=== PATIENT | female | born 1950 | race Caucasian/White ===

== ENCOUNTER 2023-03-19 09:35 | Outpatient (REF) | payer MEDICARE, SELFPAY ==
--- NOTE | ~2023-03-19 | XR_ITS ---
EXAMINATION: XR LUMBOSACRAL SPINE CLINICAL INFORMATION: Lower back pain. COMPARISON: None TECHNIQUE: AP and lateral views of the lumbar spine and lateral view of the lumbosacral junction. FINDINGS: There is bony demineralization. At L3-L4, there is a 3 mm retrolisthesis. At L4-L5, there is a 3 mm anterolisthesis. At L5-S1, there is mild to moderate disc space narrowing. The remaining disc spaces are relatively well-maintained. No acute fracture or spondylolisthesis is seen. There is multi-level lumbar spondylosis and facet arthropathy. The posterior elements are intact. There are aortoiliac atherosclerotic calcifications. XR/XR sacrum coccyx min 2V IMPRESSION: 1. There is mild degenerative disc disease at L3-L4 and L4-L5, and mild to moderate degenerative disc disease is seen at L5-S1. 2. There is multi-level lumbar spondylosis and facet arthropathy. EXAMINATION: XR SACRUM AND COCCYX CLINICAL INFORMATION: Lower back pain. COMPARISON: None available. TECHNIQUE: 3 frontal and lateral views of the sacrum and coccyx were obtained. FINDINGS: There is bony demineralization. No fracture or dislocation is seen. The bilateral sacroiliac joints are symmetric and well-maintained. The pubic symphysis is intact. There is moderately severe degenerative change of the right hip, and the left hip joint space is well-maintained. No sacrococcygeal fracture is seen. There are aortoiliac atherosclerotic calcifications. IMPRESSION: No acute fracture or dislocation is seen. EXAMINATION: XR HIP, RIGHT CLINICAL INFORMATION: Lower back pain. COMPARISON: None available. TECHNIQUE: AP and frog-leg lateral views of the right hip. FINDINGS: There is bony demineralization. There is moderately severe narrowing of the right acetabular joint space. There is peripheral osteophyte formation of the articular surfaces of the right hip. A compression screw and fixator screws are applied to the proximal right femur. No hardware failure or loosening is seen. There is no foreign body. IMPRESSION: There is moderately severe osteoarthritic change of the right hip. No acute fracture or dislocation is seen. No hardware failure or loosening is noted.
== END 2023-03-19 09:36 | disposition home or self-care (01) ==
LOC: HO.XRAY 09:35
PROVIDERS: PCP Internal Medicine; Visit Provider Internal Medicine
DX: M53.3 Sacrococcygeal disorders, not elsewhere classified (principal); M54.50 Low back pain, unspecified; M25.551 Pain in right hip
CPT/HCPCS: 72100; 72220; 73502

== ENCOUNTER 2023-07-22 16:35 | Outpatient (AMB) | payer MEDICARE, SELFPAY ==
[2023-07-22 16:56] VITALS: BP 112/58; PULSE 77; O2SAT 96; BMI 22.1
--- NOTE | 2023-07-22 16:56 | MHC.PC.OV ---
Vital Signs 07/22/23 16:56 Height 5 ft 4 in Weight 129 lb BMI 22.1 BP 112/58 L Blood Pressure Location Lt brachial Position Sitting Pulse 77 Pulse Source Pulse Oximeter Pulse Oximetry (%) 96 Oxygen Delivery Method Room Air Intake Visit Reasons: afib Office Secretary Required: No Accompanied by: Self / Same As Patient Allergies paroxetine [From PAXIL] Allergy (Mild, Verified 07/22/23 17:19) ALOPECIA Medication List - Last Reconciled 07/22/23 by Lizet Almaraz MD [adult diapers pull-ups As directed] cholecalciferol (vitamin D3) 50 mcg PO DAILY 90 days digoxin 125 mcg PO DAILY 90 days diltiazem HCl CD (Cardizem CD) 240 mg PO DAILY 90 days fluoxetine 60 mg (3 x 20 mg) PO DAILY 30 days metoprolol succinate ER 50 mg PO DAILY polyethylene glycol 3350 17 grams PO DAILY PRN 30 days potassium chloride ER 10 mEq PO DAILY 90 days pravastatin 20 mg PO DAILY 90 days underpads (Maxicare Underpads) As directed warfarin 3 mg (3 x 1 mg) PO DAILY Tobacco use date assessed: 07/22/23 Fall risk assessment: No Falls in past year Last assessed Fall Risk: 07/22/23 Dental Screening Dental Screen Date: 03/19/23 HPI HPI Comments History of Present Illness Details This is a 73-year-old female with hypertension, pure hypercholesterolemia, atrial fibrillation, mild major depression and urge urinary incontinence that comes accompanied by friend for follow-up on her conditions. Blood pressure well controlled. Lipid panel will be order. On chronic anticoagulation for atrial fibrillation and she follows with Coumadin clinic. Depression stable with fluoxetine and is follow by Psychiatry. Has urge urinary incontinence and Myrbetriq works well but is too expensive. Walks with a walker for gait stability. Has skin lesions in her lower legs more prominent in the right that ooze most likely due to venous stasis dermatitis. Will prescribe a topical steroid cream. Has chronic idiopathic constipation that has been stable with MiraLax as needed. [facility] Medical History (Updated 07/22/23 @ 19:57 by Lizet Almaraz MD) Right shoulder pain Urge urinary incontinence Mild depression Dyslipidemia Hypovitaminosis D Current use of assisted anticoagulation Atrial fibrillation Depression with anxiety High cholesterol Hypertension Arthritis Surgical History Deficient knowledge of open reduction and internal (ORIF) fixation of hip History of cataract Family History Father Cancer Throat cancer Mother No problems noted. Sister No problems noted. Son No problems noted. Social History Housing: Apartment Alcohol intake: never Patient Tobacco Use Status: Former Tobacco user Tobacco use type: Cigarette e-Cigarette/Vaping Use: Never Used Second Hand Smoke Exposure: No service: No Current occupational status: retired Cognitive needs: Yes Hearing needs: No Vision needs: No Questionnaire PHQ-9 Over the last 2 weeks, how often have you been bothered by any of the following problems? 1. Little interest or pleasure in doing things: several days 2. Feeling down, depressed, or hopeless: several days 3. Trouble falling or staying asleep, or sleeping too much: not at all 4. Feeling tired or having little energy: several days 5. Poor appetite or overeating: not at all 6. Feeling bad about yourself - or that you are a failure or have let yourself or your family down: not at all 7. Trouble concentrating on things, such as reading the newspaper or watching television: not at all 8. Moving or speaking so slowly that other people could have noticed. Or the opposite - being so fidgety or restless that you have been moving around a lot more than usual: not at all 9. Thoughts that you would be better off or of hurting yourself in some way: not at all Total score: 3 Depression Screening Interpretation: Positive Depression Screening Follow-up: Existing condition, In treatment and Community Mental Health Worker F/U Depression Screening Done: Yes 82411 - PHQ-9 Billing: Yes Source: Developed by Drs. Rahat Barragan, Lisha Dominguez, Atilio Fong and colleagues, with an educational guerda from [employer]. Thrive Questionnaire Date Thrive assessed: 07/22/23 I am a: Patient What is your living situation today?: I have a steady place to live Within the past 12 months, did the food you bought not last and you didn't have the money to get more?: Never true Within the past 12 months, did you worry whether your food would run out before you got money to buy more?: Never true Do you have trouble paying for medicines?: No Do you have trouble getting transportation to medical appointments?: No Do you have trouble paying your heating and electricity bill?: No Do you have trouble taking care of your child, family member or friend?: No Do you have trouble with day-to-day activities such as bathing, preparing meals, shopping, managing finances, etc.?: No Are you currently unemployed and looking for a job?: No Are you interested in more education?: No Please select the resources that you would like help with: None Currently or been in a relationship where the following occur: no concerns reported THRIVE Score: 0 AUDIT C Alcohol Use Questionnaire (AUDIT-C) 1. How often do you have a drink containing alcohol?: Never Total Score: 0 YURY-7 AMB Questionnaire YURY-7 Date YURY - 7 assessed: 03/19/23 Source: Developed by Drs. Rahat Barragan, Lisha Dominguez, Atilio Fong and colleagues, with an educational guerda from [employer]. Review of Systems Const All systems reviewed & are unremarkable except as noted in HPI and below Eyes Reports no additional complaints, Denies change in vision and Denies other visual disturbances Card Denies chest pain at rest, Denies chest pain with activity, Denies edema, Denies irregular heart rhythm, Denies claudication, Denies dyspnea, Denies dyspnea on exertion, Denies orthopnea, Denies paroxysmal nocturnal dyspnea and Denies slow heart rate Resp Denies cough, Denies dyspnea and Denies dyspnea on exertion GI Denies abdominal pain, Denies change in bowel habits, Reports constipation, Denies excessive flatus, Denies nausea and Denies vomiting Reports urinary incontinence, Denies urinary hesitancy and Denies urinary urgency Skin/Breast Reports erythema Physical exam (Primary Care) Vital Signs: Last Vital Signs Pulse 77 07/22/23 16:56 BP 112/58 L 07/22/23 16:56 Pulse Ox 96 07/22/23 16:56 Oxygen Delivery Method Room Air 07/22/23 16:56 BMI result Body Mass Index 22.1 Tobacco/Smoking Status: Tobacco use Status Tobacco use date assessed 07/22/23 07/22/23 17:06 Patient Tobacco Use Status Former Tobacco user 07/22/23 17:06 Tobacco use type Cigarette 07/22/23 17:06 e-Cigarette/Vaping Use Never Used 07/22/23 17:06 PHQ-9: PHQ-9 Score PHQ-9: Total score 3 07/22/23 17:23 Depression Screening Interpretation: Positive Depression Screening Follow-up: Existing condition, In treatment and Community Mental Health Worker F/U Thrive Assessment: Date of Thrive Assessment Date Thrive assessed 07/22/23 07/22/23 17:06 Currently or been in a relationship where the following occur: no concerns reported Const Limitations: ambulation with walker Resp Effort & Inspection: normal respiratory effort Auscultation: clear to auscultation bilaterally Cardio Jugular venous distension: no JVD Rate: regular rate Rhythm: regular rhythm Heart sounds: S1 normal heart sound present and S2 normal heart sound present Extrem General: Yes full ROM Assessment and Plan Assessment & Plan (1) Atrial fibrillation: Code(s): I48.91 - Unspecified atrial fibrillation Qualifiers: Atrial fibrillation type: longstanding persistent Qualified Code(s): I48.11 - Longstanding persistent atrial fibrillation Plan: Continue metoprolol warfarin. INR goal is 2-3. (2) Mild depression: Code(s): F32.0 - Major depressive disorder, single episode, mild Plan: Continue fluoxetine. Follow-up with psychiatry. (3) Chronic idiopathic constipation: Code(s): K59.04 - Chronic idiopathic constipation Plan: Continue MiraLax as needed. (4) Pure hypercholesterolemia: Code(s): E78.00 - Pure hypercholesterolemia, unspecified Plan: Continue statins. (5) Urge urinary incontinence: Code(s): N39.41 - Urge incontinence Plan: Start doing time bathroom visits. (6) Venous stasis dermatitis: Code(s): I87.2 - Venous insufficiency (chronic) (peripheral) Orders: Orders Lipid Panel Today E78.5 - Hyperlipidemia, unspecified Vitamin D 25-OH Total Today E55.9 - Vitamin D deficiency, unspecified Complete Blood Count Auto Diff Today D64.9 - Anemia, unspecified IRON PROFILE Today D64.9 - Anemia, unspecified Digoxin Today I48.11 - Longstanding persistent atrial fibrillation Vitamin B12 and Folate Today E53.8 - Deficiency of other specified B group vitamins Comprehensive [place]. Panel Fast Today M54.50 - Low back pain, unspecified Referrals Cardiology Referral I48.11 - Longstanding persistent atrial fibrillation, Z01.818 - Encounter for other preprocedural examination Medications: New metoprolol succinate ER 50 mg PO DAILY 90 tabs 1RF 90 days hydrocortisone 1% (Anti-Itch (hydrocortisone)) 1 appl topical BID PRN 28.4 grams 1RF skin irritation 30 days Coding Level of Care Code Est Pt Level 4 (97976) Diagnoses Longstanding persistent atrial fibrillation I48.11 Atrial fibrillation type: longstanding persistent Mild depression F32.0 Chronic idiopathic constipation K59.04 Pure hypercholesterolemia E78.00 Urge urinary incontinence N39.41 Venous stasis dermatitis I87.2 Time Spent (min) 25
== END 2023-07-22 17:41 | disposition home or self-care (01) ==
PROVIDERS: PCP Internal Medicine; Visit Provider Internal Medicine
DX: I48.11 Longstanding persistent atrial fibrillation (principal); F32.0 Major depressive disorder, single episode, mild; K59.04 Chronic idiopathic constipation; E78.00 Pure hypercholesterolemia, unspecified; N39.41 Urge incontinence; I87.2 Venous insufficiency (chronic) (peripheral)
CPT/HCPCS: 99214

== ENCOUNTER 2023-09-04 14:15 | Outpatient (AMB) | payer MEDICARE, SELFPAY ==
[2023-09-04 14:33] VITALS: BP 114/60; PULSE 74; BMI 21.9
--- NOTE | 2023-09-04 14:33 | MHC.OFFVIS ---
Vital Signs 09/04/23 14:33 Height 5 ft 4 in Weight 127 lb 13.89 oz BMI 21.9 BP 114/60 Blood Pressure Location Lt brachial Position Sitting Pulse 74 Pulse Source Monitor Intake Visit Reasons: [employer]/ previous HS/ [place]/ Allergies paroxetine [From PAXIL] Allergy (Mild, Verified 07/22/23 17:19) ALOPECIA Medication List - Last Reconciled 09/04/23 by Justino Cunha MD [adult diapers pull-ups As directed] cholecalciferol (vitamin D3) 50 mcg PO DAILY 90 days digoxin 125 mcg PO DAILY 90 days diltiazem HCl CD (Cardizem CD) 240 mg PO DAILY 90 days fluoxetine 60 mg (3 x 20 mg) PO DAILY 30 days hydrocortisone 1% (Anti-Itch (hydrocortisone)) 1 appl topical BID PRN 30 days metoprolol succinate ER 50 mg PO DAILY 90 days polyethylene glycol 3350 17 grams PO DAILY PRN 30 days potassium chloride ER 10 mEq PO DAILY 90 days pravastatin 20 mg PO DAILY 90 days underpads (Maxicare Underpads) As directed warfarin 3 mg (3 x 1 mg) PO DAILY HPI Comments Details: Catie is here for evaluation regarding atrial fibrillation. She has been seen in our clinic many years ago-last around 2017, but nothing recently. It does not appear that she was actually seeing anybody from Cardiology. She states she is generally doing okay from cardiac and does not have any overt symptoms. Otherwise, it seems that she required some uterine surgery but was apparently canceled as she has not seen Cardiology in many years. [facility] Medical History Right shoulder pain Urge urinary incontinence Mild depression Dyslipidemia Hypovitaminosis D Current use of shelter anticoagulation Atrial fibrillation Depression with anxiety High cholesterol Hypertension Arthritis Surgical History Deficient knowledge of open reduction and internal (ORIF) fixation of hip History of cataract Family History Father Cancer Throat cancer Mother No problems noted. Sister No problems noted. Son No problems noted. Social History Housing: Apartment Alcohol intake: never Patient Tobacco Use Status: Former Tobacco user Tobacco use type: Cigarette e-Cigarette/Vaping Use: Never Used Second Hand Smoke Exposure: No service: No Current occupational status: retired Cognitive needs: Yes Hearing needs: No Vision needs: No Review of Systems Const Denies weakness ENT Denies dizziness Card Denies chest pain, Denies chest pain with activity, Denies syncope, Denies rapid heart rate, Denies pedal edema, Denies edema, Denies leg edema, Denies lightheadedness, Denies palpitations, Denies dyspnea, Denies dyspnea on exertion and Denies orthopnea Resp Denies cough, Denies dyspnea and Denies dyspnea on exertion GI Denies hematochezia and Denies change in stool character Musc Denies abnormal gait, Denies muscle cramps, Denies muscle weakness, Denies numbness, Denies radiating pain into limb and Denies tingling Neuro Denies abnormal gait, Denies dizziness, Denies syncope, Denies numbness, Denies tingling and Denies weakness Endo Denies palpitations Physical Exam Vital Signs: Last Vital Signs Pulse 74 09/04/23 14:33 BP 114/60 09/04/23 14:33 BMI result Body Mass Index 21.9 Const General: comfortable and no acute distress Orientation/consciousness: patient oriented x3 HEENT Other: Unremarkable Head: Yes normal to inspection Neck Neck: Yes normal visual inspection Chest Chest palpation & inspection: normal inspection of the chest Resp Auscultation: clear to auscultation bilaterally Cardio Palpation: normal PMI Heart sounds: S1 normal heart sound present, S2 normal heart sound present, no gallops, no murmurs and no rubs GI Palpation (GI): Soft to palpation Back/Spine/Pelvis Other: unremarkable Skin General skin exam: no rashes or lesions noted Neuro General: patient oriented x3 Extrem General: Yes normal to inspection Psych Mental Status: mental status grossly normal Assessment & Plan Assessment & Plan (1) Persistent atrial fibrillation: Code(s): I48.19 - Other persistent atrial fibrillation Category: Medical (2) Non-rheumatic aortic stenosis: Code(s): I35.0 - Nonrheumatic aortic (valve) stenosis Category: Medical (3) Preoperative cardiovascular examination: Code(s): Z01.810 - Encounter for preprocedural cardiovascular examination Category: Medical Plan [place] [facility] [place]LVEF 40-45%; severely dilated left atrium; [id number] aortic stenosis; mitral annular calcification. Per echocardiogram in 2017, LVEF is 55-60%. We will repeat echocardiogram to reassess LVEF. Could be related to atrial fibrillation. Not clear. Less likely ischemic as she does not have any anginal-type symptoms. We will also get a Holter to assess adequacy of rate control. It seems that she had some labs done at home through [facility]. Will need to get those results. Looking for digoxin levels. Follow-up after the above. Orders: Orders CA echo transthoracic complete Today I35.0 - Nonrheumatic aortic (valve) stenosis ECG 3 day holter monitor Today I48.19 - Other persistent atrial fibrillation Coding Level of Care Code New Pt Level 4 (86655) Diagnoses Persistent atrial fibrillation I48.19 Non-rheumatic aortic stenosis I35.0 Preoperative cardiovascular examination Z01.810
== END 2023-09-04 15:07 | disposition home or self-care (01) ==
PROVIDERS: PCP Internal Medicine; Visit Provider Internal Medicine
DX: I48.19 Other persistent atrial fibrillation (principal); I35.0 Nonrheumatic aortic (valve) stenosis; Z01.810 Encounter for preprocedural cardiovascular examination
CPT/HCPCS: 93010; 99204

== ENCOUNTER → 2023-09-04 14:15 | Outpatient (BNVA) | payer MEDICARE, SELFPAY | PROVIDERS: PCP Internal Medicine; Visit Provider Internal Medicine | DX: Z01.810 Encounter for preprocedural cardiovascular examination (principal); I48.19 Other persistent atrial fibrillation; I35.0 Nonrheumatic aortic (valve) stenosis | CPT/HCPCS: 93005; 99202 ==

== ENCOUNTER → 2023-09-30 13:56 | Outpatient (REF) | payer MEDICARE, SELFPAY ==
--- NOTE | 2023-09-30 14:01 | CA_ITS ---
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 The visually estimated ejection fraction is between 55-60%. - Severe biatrial enlargement. - Paradoxical, low-flow, low gradient severe aortic stenosis. - There is moderate mitral annular calcification. Findings Left Ventricle Normal left ventricular cavity size. There is mildly increased left ventricular wall thickness. The left ventricular systolic function is normal. The visually estimated ejection fraction is between 55-60%. There is no evidence of regional wall motion abnormalities. Diastolic function is indeterminate on the basis of available data. Right Ventricle Normal right ventricular cavity size and systolic function. Atria Severe biatrial enlargement. Aortic Valve There is moderate calcification of the aortic valve. The peak aortic velocity is 2.79 m/s with a calculated peak gradient of 31 mmHg. The mean gradient is 17 mmHg. The aortic valve area is 0.65 cm2. There is no aortic valve regurgitation. Dimensionless index 0.23. Stroke volume index 26ml/m2. Overall, suggestive of paradoxical, low-flow, low gradient severe aortic stenosis. Mitral Valve There is moderate mitral annular calcification. There is trace mitral valve regurgitation. There is no mitral valve stenosis. Pulmonic Valve The pulmonic valve is likely normal. Tricuspid Valve Normal tricuspid valve structure. There is mild tricuspid valve regurgitation. There is no evidence of pulmonary hypertension. Great Vessels The asc aorta is normal in size. Venous The inferior vena cava is normal in size and collapses less than 50% with inspiration. Pericardium/Pleural There is no evidence of pericardial effusion. Prior Study Comparison Changes noted compared to prior study dated: 05/02/2016. see comments on aortic valve. Measurements 2D Linear Measurements IVSd: 1.02 0.6-0.9/0.6-1.0 cm LVIDd: 3.99 3.9-5.3/4.2-5.9 cm LVIDd Index: 2.64 2.4-3.2/2.2-3.1 cm/m2 LVIDs: 2.83 2.0-3.6 cm LVPWd: 1.03 0.7-1.1 cm Ao Root: 3.00 2.1-3.5 cm LA Diam: 4.80 2.7-3.8/3.0-4.0 cm LAIDs Index: 3.18 1.5-2.3 cm/m2 LV Mass: 163.10 67-162/88-224 g LV Mass Index: 108.01 43-95/49-115 g/m2 LVOT Diam: 1.90 3.0+(-)1.3 cm 2D Systolic Function EF 4C: 51.70 >55% EF 2C: 48.80 >55% EF BiP: 50.50 >55% Mitral Valve MV Pk E: 0.93 MV Decel Time: 149.00 E'Lateral: 11.60 E'Medial: 6.96 E/E' Med: 13.40 E/E' Lat: 8.00 PHT: 44.00 MVA PHT: 5.00 Decel [place]: 6.23 Aortic Valve AoV Pk Fish: 2.79 AoV Mn Fish: 1.91 AoV VTI: 0.60 AoV Pk Grad: 31.00 Aov Mn Grad: 17.00 SHANIA Cont.VTI: 0.65 LVOT LVOT Pk Fish: 0.66 LVOT Mn Fish: 0.43 LVOT VTI: 0.14 LVOT Pk Grad: 2.00 LVOT Mn Grad: 1.00 LVOT Diam: 1.90 LVOT Area: 2.84 Diastolic Function MV Pk E: 0.93 E'Medial: 6.96 E/E' Med: 13.40 E' Laterial: 11.60 E/E' Lat: 8.00 Right Ventricle TAPSE (mm): 23.00 TVS' Fish: 17.00 Tricuspid Valve TR Pk Fish: 2.70 TR Pk Grad: 29.00 RA Press: 3.00 RVSP: 32.00 Great Vessels Aorta Ao Root-2D: 3.00 2.0-3.7 cm Ao Asc: 3.10 2.1-3.4 cm Pulmonary Valve PV Pk Fish: 1.08 Peak PV Grad: 5.00 Updated in Other Vendor System with Status of Final Justino Cunha MD electronically signed on 10/01/2023 12:27:13 PM with status of Final
--- NOTE | 2023-09-30 14:01 | HM_ITS ---
Conclusion: 1. Patient was monitored for total period of 2 days and 23 hours 2. Baseline rhythm is atrial fibrillation with average heart of 75 beats per minute with good rate control 3. No significant pauses noted 4. No patient reported events MTDD
== END ==
LOC: HO.CARD 13:56
PROVIDERS: PCP Internal Medicine; Visit Provider Internal Medicine
DX: I35.0 Nonrheumatic aortic (valve) stenosis (principal); I48.19 Other persistent atrial fibrillation
CPT/HCPCS: 93242; 93306

== ENCOUNTER → 2023-09-30 14:01 | Outpatient (BNV) | payer MEDICARE, SELFPAY | PROVIDERS: PCP Internal Medicine; Visit Provider Internal Medicine | DX: I35.0 Nonrheumatic aortic (valve) stenosis (principal); I35.8 Other nonrheumatic aortic valve disorders; I51.7 Cardiomegaly; I34.81 Nonrheumatic mitral (valve) annulus calcification | CPT/HCPCS: 93244; 93306 ==

== ENCOUNTER 2023-11-21 14:30 | Outpatient (AMB) | payer MEDICARE, SELFPAY ==
[2023-11-21 14:32] VITALS: BP 100/52; PULSE 73; BMI 22.7
--- NOTE | 2023-11-21 14:32 | A.OFFVIS_ITS ---
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 Engineer Present Allergies paroxetine [From PAXIL] Allergy (Mild, Verified 11/21/23 14:39) ALOPECIA Medication List - Last Reconciled 11/21/23 by Elsy Herrera, SUPERVISOR [employer]ING [employer]ING[employer] [adult diapers pull-ups As directed] cholecalciferol (vitamin D3) 50 mcg PO DAILY 90 days digoxin 125 mcg PO DAILY 90 days diltiazem HCl CD (Cardizem CD) 240 mg PO DAILY 90 days fluoxetine 60 mg (3 x 20 mg) PO DAILY 30 days hydrocortisone 1% (Anti-Itch (hydrocortisone)) 1 appl topical BID PRN 30 days metoprolol succinate ER 50 mg PO DAILY 90 days polyethylene glycol 3350 17 grams PO DAILY PRN 30 days potassium chloride ER 10 mEq PO DAILY 90 days pravastatin 20 mg PO DAILY 90 days underpads (Maxicare Underpads) As directed warfarin 3 mg (3 x 1 mg) PO DAILY HPI HPI 3 mth fu: Details: Catie is a 73-year-old female past medical history of hypertension, hyperlipidemia, aortic stenosis, persistent atrial fibrillation who is in need of surgery for vaginal prolapse. Following last visit an echocardiogram and Holter monitor were done and she now presents for follow-up. Today she reports that she does have some shortness of breath with walking. She ambulates slowly with a walker. Her breathing is comfortable at rest. No PND, orthopnea or edema. She denies any chest discomfort at rest or with activity. No palpitations, lightheadedness, presyncope, syncope. Taking meds as directed. Her friend is present. She does seem mildly forgetful. [facility] Medical History Right shoulder pain Urge urinary incontinence Mild depression Dyslipidemia Hypovitaminosis D Current use of assisted anticoagulation Atrial fibrillation Depression with anxiety High cholesterol Hypertension Arthritis Surgical History Deficient knowledge of open reduction and internal (ORIF) fixation of hip History of cataract Family History Father Cancer Throat cancer Mother No problems noted. Sister No problems noted. Son No problems noted. Social History Housing: Apartment Alcohol intake: never Patient Tobacco Use Status: Former Tobacco user Tobacco use type: Cigarette e-Cigarette/Vaping Use: Never Used Second Hand Smoke Exposure: No service: No Current occupational status: retired Cognitive needs: Yes Hearing needs: No Vision needs: No Review of Systems Const All systems reviewed & are unremarkable except as noted in HPI and below ENT Denies dizziness Card Denies chest pain, Denies chest pain at rest, Denies chest pain with activity, Denies rapid heart rate, Denies pedal edema, Denies edema, Denies leg edema, Denies lightheadedness, Denies palpitations, Denies dyspnea, Reports dyspnea on exertion and Denies orthopnea Resp Denies cough, Denies dyspnea and Reports dyspnea on exertion GI Denies hematochezia and Denies change in stool character Musc Reports abnormal gait (ambulates slowly with walker), Denies limited range of motion, Denies muscle cramps, Denies muscle weakness, Denies numbness, Denies radiating pain into limb, Denies stiffness and Denies tingling Neuro Reports abnormal gait (ambulates slowly with walker), Denies dizziness, Denies numbness and Denies tingling Endo Denies palpitations Physical Exam Vital Signs: Last Vital Signs Pulse 73 11/21/23 14:32 BP 100/52 L 11/21/23 14:32 BMI result Body Mass Index 22.7 Const General: cooperative, healthy appearing, comfortable and no acute distress Orientation/consciousness: patient oriented x3 Neck Neck: Yes normal visual inspection and Yes no JVD Resp Effort & Inspection: normal respiratory effort Auscultation: clear to auscultation bilaterally, no rales, no rhonchi and no wheezes Cardio Jugular venous distension: no JVD Rate: regular rate Rhythm: abnormal rhythm Heart sounds: S1 normal heart sound present, S2 normal heart sound present, Murmur heart sound present (3/6 systolic murmur) and no rubs Neuro General: patient oriented x3 Extrem Other: venous stasis changes to lower legs, bruising and scabbing of wounds on right lower leg Psych Appearance: grossly normal Mental Status: mental status grossly normal Speech and movement: Normal speech and movement present Office Procedures EKG Details: Today, read by me, atrial fibrillation, indeterminate axis due to artifact on tracing, septal infarct, ST abnormality far lateral leads rate 73, QTC 398 millisecond [id number], Complete Assessment & Plan Assessment & Plan (1) Non-rheumatic aortic stenosis: Code(s): I35.0 - Nonrheumatic aortic (valve) stenosis Category: Medical Plan: History of aortic stenosis. [place] [facility] [place] EF 40-45%, severely dilated left atrium, no definite regional wall motion abnormalities, [id number] aortic stenosis. In August she was seen in our office after a prolonged absence. Her last prior visit was 2016. She then had a repeat echocardiogram done 09/30/2023 which showed EF 55-60%, severe biatrial enlargement and low flow low gradient severe aortic stenosis. She does have some shortness of breath with walking. She denies chest discomfort or presyncope/syncope. She is mostly sedentary. She is in need histology specialist surgery for prolapsed uterus. Her surgery had been previously scheduled then canceled as she had not seen Cardiology in some time. For further cardiac evaluation she needs a diagnostic cardiac catheterization to evaluate coronaries and aortic valve gradient. Cardiac catheterization procedure, risks including bleeding, infection, DEBO, CA, stroke reviewed with her. She is agreeable to proceed. She has no contrast dye allergy. She is on Coumadin which will need to be held to 5 days prior to the procedure. Lovenox bridge not required. Preprocedure labs ordered. Cardiology follow-up 2 weeks post cath. (2) Persistent atrial fibrillation: Code(s): I48.19 - Other persistent atrial fibrillation Category: Medical Plan: History of persistent, chronic atrial fibrillation. She is on diltiazem, metoprolol and digoxin for heart rate control. She denies any heart palpitations. EKG done today is showing atrial fibrillation, rate 73. Holter monitor done on 09/30/2023 for 3 days shows atrial fibrillation with average heart rate 75. She is on Coumadin for anticoagulation. INR goal 2-3. She has labs done at home through [facility]. Will check an INR as part of pre cath testing. Will also check a digoxin level. Med changes made at this time. (3) Current use of joint terminal attack controller anticoagulation: Code(s): Z79.01 - FDC (current) use of anticoagulants Category: Medical Plan: As above (4) Hypertension: Code(s): I10 - Essential (primary) hypertension Category: Medical Qualifiers: Hypertension type: unspecified Qualified Code(s): I10 - Essential (primary) hypertension Plan: Blood pressure on the low side today, 100/52, asymptomatic. Her heart rate lowering meds, diltiazem and metoprolol will also lower her blood pressure. Instructed on maintaining good hydration. Use caution when going sitting to standing if she has lightheadedness. Can use some salt in her diet. (5) Preoperative cardiovascular examination: Code(s): Z01.810 - Encounter for preprocedural cardiovascular examination Category: Medical Plan: Preop for histology specialist surgery. No date yet. Cardiac catheterization planned as above. Note will be updated once test results are known. Plan Time spent on chart review, documentation, interview and assessment Orders: Orders Basic Metabolic Panel Today I35.0 - Nonrheumatic aortic (valve) stenosis Prothrombin Time INR Today I35.0 - Nonrheumatic aortic (valve) stenosis Cardiac Cath LT Diagnostic Today I35.0 - Nonrheumatic aortic (valve) stenosis, Z01.810 - Encounter for preprocedural cardiovascular examination Complete Blood Count Auto Diff Today I35.0 - Nonrheumatic aortic (valve) stenosis Digoxin Today I48.19 - Other persistent atrial fibrillation Coding Level of Care Code Est Pt Level 4 (98970) Diagnoses Non-rheumatic aortic stenosis I35.0 Persistent atrial fibrillation I48.19 Current use of joint terminal attack controller anticoagulation Z79.01 Hypertension, unspecified type I10 Hypertension type: unspecified Preoperative cardiovascular examination Z01.810 CPT Codes EKG - CPT: 43223-[id number], Complete ([id number]) Time Spent (min) 36
== END 2023-11-21 15:21 | disposition home or self-care (01) ==
PROVIDERS: PCP Internal Medicine; Visit Provider Nurse Practitioner Family
DX: I35.0 Nonrheumatic aortic (valve) stenosis (principal); I48.19 Other persistent atrial fibrillation; Z79.01 Long term (current) use of anticoagulants; I10 Essential (primary) hypertension; Z01.810 Encounter for preprocedural cardiovascular examination
CPT/HCPCS: 93010; 99214

== ENCOUNTER → 2023-11-21 14:30 | Outpatient (BNVA) | payer MEDICARE, SELFPAY | PROVIDERS: PCP Internal Medicine; Visit Provider Nurse Practitioner Family | DX: Z01.810 Encounter for preprocedural cardiovascular examination (principal); I10 Essential (primary) hypertension; I35.0 Nonrheumatic aortic (valve) stenosis; I48.19 Other persistent atrial fibrillation; E78.5 Hyperlipidemia, unspecified; Z79.01 Long term (current) use of anticoagulants | CPT/HCPCS: 93005; 99212 ==

== ENCOUNTER → 2023-12-17 23:59 | Outpatient (BNV) | payer MEDICARE, SELFPAY | PROVIDERS: PCP Internal Medicine; Visit Provider Internal Medicine Cardiovascular Disease | DX: I35.0 Nonrheumatic aortic (valve) stenosis (principal); R06.02 Shortness of breath; I50.30 Unspecified diastolic (congestive) heart failure | CPT/HCPCS: 93460; 99152 ==

== ENCOUNTER 2024-01-02 12:20 | Outpatient (AMB) | payer MEDICARE, SELFPAY ==
[2024-01-02 12:35] VITALS: BP 100/60; PULSE 76; BMI 22.3
--- NOTE | 2024-01-02 12:35 | A.OFFVIS_ITS ---
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 Accompanied by: Sister Allergies paroxetine [From PAXIL] Allergy (Mild, Verified 11/21/23 14:39) ALOPECIA Medication List - Last Reconciled 01/02/24 by Justino Cunha MD [adult diapers pull-ups As directed] cholecalciferol (vitamin D3) 50 mcg PO DAILY 90 days digoxin 125 mcg PO DAILY 90 days diltiazem HCl CD (Cardizem CD) 240 mg PO DAILY 90 days fluoxetine 60 mg (3 x 20 mg) PO DAILY 30 days hydrocortisone 1% (Anti-Itch (hydrocortisone)) 1 appl topical BID PRN 30 days metoprolol succinate ER 50 mg PO DAILY 90 days polyethylene glycol 3350 17 grams PO DAILY PRN 30 days potassium chloride ER 10 mEq PO DAILY 90 days pravastatin 20 mg PO DAILY 90 days underpads (Maxicare Underpads) As directed warfarin 3 mg (3 x 1 mg) PO DAILY HPI Comments Details: Catie is here for evaluation regarding atrial fibrillation. She has been seen in our clinic many years ago-last around 2017, but nothing recently. It does not appear that she was actually seeing anybody from Cardiology. She states she is generally doing okay from cardiac and does not have any overt symptoms. Otherwise, it seems that she required some uterine surgery but was apparently canceled as she has not seen Cardiology in many years. [facility] Medical History Right shoulder pain Urge urinary incontinence Mild depression Dyslipidemia Hypovitaminosis D Current use of half-way anticoagulation Atrial fibrillation Depression with anxiety High cholesterol Hypertension Arthritis Surgical History Deficient knowledge of open reduction and internal (ORIF) fixation of hip History of cataract Family History Father Cancer Throat cancer Mother No problems noted. Sister No problems noted. Son No problems noted. Social History Housing: Apartment Alcohol intake: never Patient Tobacco Use Status: Former Tobacco user Tobacco use type: Cigarette e-Cigarette/Vaping Use: Never Used Second Hand Smoke Exposure: No service: No Current occupational status: retired Cognitive needs: Yes Hearing needs: No Vision needs: No Review of Systems Const Denies chills, Denies fatigue, Denies fever(s), Denies frequent falls, Denies weakness, Denies weight gain and Denies weight loss ENT Denies dizziness Card Denies chest pain, Denies leg edema, Denies lightheadedness, Denies palpitations, Denies dyspnea and Denies dyspnea on exertion Resp Denies cough, Denies dyspnea and Denies dyspnea on exertion GI Denies hematochezia Musc Denies abnormal gait, Denies muscle weakness, Denies numbness, Denies radiating pain into limb and Denies tingling Neuro Denies abnormal gait, Denies dizziness, Denies frequent falls, Denies numbness, Denies tingling and Denies weakness Endo Denies fatigue and Denies palpitations Physical Exam Vital Signs: Last Vital Signs Pulse 76 01/02/24 12:35 BP 100/60 01/02/24 12:35 BMI result Body Mass Index 22.3 Const General: comfortable and no acute distress Orientation/consciousness: patient oriented x3 HEENT Other: Unremarkable Head: Yes normal to inspection Neck Neck: Yes normal visual inspection Chest Chest palpation & inspection: normal inspection of the chest Resp Auscultation: clear to auscultation bilaterally Cardio Palpation: normal PMI Heart sounds: S1 normal heart sound present, S2 normal heart sound present, no gallops, Murmur heart sound present systolic III/ and at the right sternal border and no rubs GI Palpation (GI): Soft to palpation Back/Spine/Pelvis Other: unremarkable Skin General skin exam: no rashes or lesions noted Neuro General: patient oriented x3 Extrem General: Yes normal to inspection Psych Mental Status: mental status grossly normal Assessment & Plan Assessment & Plan (1) Persistent atrial fibrillation: Code(s): I48.19 - Other persistent atrial fibrillation Category: Medical Plan: In the Holter monitor, underlying rhythm is atrial fibrillation with an average rate of 75/Min. Well rate controlled. Continue diltiazem, metoprolol, digoxin, warfarin. From available outside labs, digoxin level 0.9 from 08/2023; acceptable. (2) Non-rheumatic aortic stenosis: Code(s): I35.0 - Nonrheumatic aortic (valve) stenosis Category: Medical Plan: Based on the echocardiogram thought to be paradoxical low-flow/low gradient aortic stenosis. During cardiac catheterization, cardiac index felt to be normal and the stenosis was thought to be rather moderate in severity. No significant CAD. We can continue to monitor. Eventually, TAVR candidate. (3) Preoperative cardiovascular examination: Code(s): Z01.810 - Encounter for preprocedural cardiovascular examination Category: Medical Plan: With regard to gynecological surgery, intermediate cardiac risk. Orders: Orders CA echo transthoracic complete 6 Months I35.0 - Nonrheumatic aortic (valve) stenosis Coding Level of Care Code Est Pt Level 4 (13580) Diagnoses Persistent atrial fibrillation I48.19 Non-rheumatic aortic stenosis I35.0 Preoperative cardiovascular examination Z01.810
== END 2024-01-02 12:50 | disposition home or self-care (01) ==
PROVIDERS: PCP Internal Medicine; Visit Provider Internal Medicine
DX: I48.19 Other persistent atrial fibrillation (principal); I35.0 Nonrheumatic aortic (valve) stenosis; Z01.810 Encounter for preprocedural cardiovascular examination
CPT/HCPCS: 99214

== ENCOUNTER → 2024-01-02 12:20 | Outpatient (BNVA) | payer MEDICARE, SELFPAY | PROVIDERS: PCP Internal Medicine; Visit Provider Internal Medicine | DX: Z01.810 Encounter for preprocedural cardiovascular examination (principal); I48.19 Other persistent atrial fibrillation; I35.0 Nonrheumatic aortic (valve) stenosis | CPT/HCPCS: 99212 ==

== ENCOUNTER 2024-12-11 11:04 | Emergency (ER) | payer MEDICARE, SELFPAY ==
--- NOTE | ~2024-12-11 | XR_ITS ---
EXAMINATION: XR WRIST, RIGHT CLINICAL INFORMATION: post reduction radial fx COMPARISON: Right wrist radiographs earlier same day. TECHNIQUE: PA and lateral views of the right wrist. FINDINGS: Casting material now overlies the right wrist, obscuring fine bone detail. Previously seen comminuted distal radial fracture has been reduced. There is near-anatomic alignment with only minimal dorsal angulation persisting. Impaction has improved. Ulnar styloid fracture, nondisplaced. Soft tissue swelling about the wrist. Vascular calcifications again noted. XR/XR wrist RT 2V IMPRESSION: Improved alignment of the comminuted distal radial fracture. There is mild persistent impaction and dorsal angulation. Electronically signed by: Tc Lawler MD 12/11/2024 02:08 PM EDT
--- NOTE | ~2024-12-11 | XR_ITS ---
EXAMINATION: XR WRIST, RIGHT CLINICAL INFORMATION: fall, obv deformity COMPARISON: None available. TECHNIQUE: PA, lateral, and oblique views of the right wrist. FINDINGS: There is mild osteopenia. There is a transverse, comminuted, likely intra-articular fracture of the distal radial metaphysis with mild dorsal angulation, mild impaction, and minimal displacement. There is an avulsion fracture of the ulnar styloid process. No additional fractures. No dislocation. Carpal bones appear intact. Mild dorsal tilt of the lunate noted. Mild chondrocalcinosis of the wrist. Moderate arthritis in the first CMC joint, and STT joints. There is circumferential soft tissue swelling about the wrist. There are diffuse vascular calcifications. XR/XR wrist RT min 3V IMPRESSION: 1. Transverse, comminuted, intra-articular distal radial fracture with mild impaction and mild dorsal angulation. 2. Ulnar styloid avulsion fracture. 3. Diffuse soft tissue swelling. Electronically signed by: Tc Lawler MD 12/11/2024 12:03 PM EDT
[2024-12-11 11:14] VITALS: BP 130/67; BP 140/90; PULSE 91; PULSE 95; RESP 16; TEMP 36.4; O2SAT 95; O2SAT 97; BMI 19.7
--- NOTE | 2024-12-11 11:32 | ED_ITS ---
HPI - Extremity Problem General Chief complaint: Extremity Injury, Upper Stated complaint: FALL T-1,RT WRIST CONTUSION PER EMS Time Seen by Provider: 12/12/24 08:42 History of Present Illness ED Provider: Ho De Anda MD HPI Narrative: This is a 74-year-old female with history of AFib among other comorbid medical conditions on anticoagulation. She had a fall after tripping clearly described as nonsyncopal last night. She fell onto the buttock but the right hand was outstretched behind her. She comes in only with wrist pain. No back buttock pelvic or any other pain. Denies head strike LOC your head or neck pain. No truncal injury. No paresthesias or hand swelling Related Data Home Medications ?Medication ?Instructions ?Recorded ?Confirmed fluoxetine 20 mg capsule 20 mg PO DAILY 12/12/2407/03 Previous Rx's ?Medication ?Instructions ?Recorded adult diapers pull-ups #240 ea 03/29/22 underpads 30 X 36 (Maxicare #240 ea 03/29/22 Underpads) warfarin 1 mg tablet 3 mg (3 x 1 mg) PO DAILY #84 tabs 03/18/24 fluoxetine 40 mg capsule 40 mg PO DAILY 90 days #90 c aps 04/07/24 cholecalciferol (vitamin D3) 50 50 mcg PO DAILY 90 day s #90 caps 09/23/24 mcg (2,000 unit) capsule diltiazem HCl 240 mg 240 mg PO DAILY 90 days #90 caps 11/18/24 capsule,extended release 24 hr (Cardizem CD) metoprolol succinate 50 mg 50 mg PO DAILY 90 days #90 tabs 11/18/24 tablet,extended release 24 hr potassium chloride 10 mEq 10 meq PO DAILY 90 days #90 tabs 11/18/24 tablet,extended release pravastatin 20 mg tablet 20 mg PO DAILY 90 days #90 t abs 11/18/24 digoxin 125 mcg (0.125 mg) tablet 125 mcg PO DAILY 90 days #90 tabs 12/09/24 oxycodone 5 mg tablet 5 mg PO Q6H PRN severe pain #7 tabs 12/14/24 Allergies Allergy/AdvReac Type Severity Reaction Status Date / Time paroxetine (From PAXIL) Allergy Mild ALOPECIA Verified 12/11/24 11:17 [facility] Past Medical History Medical History Right shoulder pain Urge urinary incontinence Mild depression Dyslipidemia Hypovitaminosis D Current use of residential anticoagulation Atrial fibrillation Depression with anxiety High cholesterol Hypertension Arthritis Surgical History (Reviewed 01/02/24 @ 12:40 by Meghann Diaz [facility]) Deficient knowledge of open reduction and internal (ORIF) fixation of hip History of cataract Family History Family History (Reviewed 01/02/24 @ 12:40 by Meghann Diaz [facility]) Father Cancer Throat cancer Mother No problems noted. Sister No problems noted. Son No problems noted. Social History Social History Housing: Apartment Alcohol intake: never Patient Tobacco Use Status: Former Tobacco user Tobacco use type: Cigarette e-Cigarette/Vaping Use: Never Used Second Hand Smoke Exposure: No Advance Directives: No Advance Directives Information Provided: Yes Do you have a plan to hurt others: No Plan service: No Current occupational status: retired Cognitive needs: Yes Hearing needs: No Vision needs: No Physical Exam 2 Exam: Exam: EXAM: Gen: Alert, awake, well appearing, well hydrated. Head: Atraumatic Eyes: Anicteric, Normal conjunctiva. ENT: Moist mucosa, no pallor. ? Neck: Supple. Skin: ?No observable rash or bruising on exposed or examined skin Respiratory: Breathing comfortably, No distress.Clear to auscultation bilaterally, symmetric chest expansion, No wheeze, rales, ronchi. Cardiovascular: Regular rate and rhythm. No murmurs or rub. Well perfused periphery, warm extremities. No edema. ? Abdominal: No focal tenderness. Soft, no objective distension. No palpable masses or obvious organomegaly. ?No guarding, no rebound tenderness or other peritoneal findings. : No flank tenderness. Neuro: Alert. Gross movement of all extremities intact. ? Psych: Calm. Cooperative. MSK: Right wrist: Dorsally displaced clear distal radial deformity. Well- perfused hand. No expanding hematoma. Well-perfused digits. Vital signs: See flowsheet Vital Signs: Vital Signs: Last Vital Signs Temp 97.0 F 12/14/24 08:10 Pulse 85 12/14/24 09:43 Resp 18 12/14/24 08:10 BP 117/75 12/14/24 09:43 Pulse Ox 92 12/14/24 08:10 O2 Del Method Room Air 12/14/24 08:10 BMI result Body Mass Index 19.7 Course Reevaluation(s) Reevaluation #1: KIM [place]: This is a patient who is awaiting case management/ physical therapy for STR. Physician observation continued. Uneventful night. Vital signs stable. No complaints from nursing overnight. Med reconciliation reviewed and done. Pending disposition. Patient is being monitored. VSS. Labs reveal subtheraputic INR at 5.0. Coumadin doses will be held at this time and repeat INR scheduled for tomorrow morning. Time: 10:09 Reevaluation #2: 12/11/2024 17:00 patient entering physician observation for case management as she is going to have difficulty ambulating care for self at home performing ADLs due to the right wrist fracture and baseline requirement of Castillo De Anda MD Reevaluation #3: Time: 09:14 Date: 12/13/24 Provider: Cathleen Rodriguez PA-C Patient in physician observation for case management needs for STR. No acute events reported overnight. INR is 4.1 today, will hold coumadin another day and recheck tomorrow.? No current issues or complaints. VS stable. Patient is pending placement at facility/pending PT/CM eval. Will continue to monitor. Code status updated and confirmed to full, MOLST form done. Time: 13:31 Date: 12/14/24 Provider: GUSTAVO Painting Physician observation ended at 1331. Pt will be d/c to [facility] for STR at 3:30PM. Medications Administered Generic Name Dose Route Start Last Admin Trade Name Freq PRN Reason Stop Dose Admin Acetaminophen 975 mg 12/12/24 04:54 12/13/24 19:59 Acetaminophen 325 Mg Tablet PO 975 mg Q6H PRN Administration Pain, Mild 1-3,fever,headache Digoxin 0.125 mg 12/12/24 09:00 12/14/24 09:38 Digoxin 0.125 Mg Tablet PO 0.125 mg DAILY WILTON Administration Protocol Fluoxetine HCl 20 mg 12/12/24 09:00 12/14/24 09:29 Fluoxetine Hcl 20 Mg Capsule PO 20 mg DAILY WILTON Administration Fluoxetine HCl 40 mg 12/12/24 09:00 12/14/24 09:29 Fluoxetine Hcl 20 Mg Capsule PO 40 mg DAILY WILTON Administration Metoprolol Succinate 50 mg 12/12/24 09:00 12/14/24 09:43 Metoprolol Succinate Er 50 Mg Tab.Er.24h PO 50 mg DAILY WILTON Administration Protocol Oxycodone HCl 5 mg 12/12/24 04:54 12/13/24 22:23 Oxycodone Hcl Immed Release 5 Mg Tablet PO 5 mg Q6H PRN Administration Pain, Moderate(Pain Scale 4-6) Potassium Chloride 10 meq 12/12/24 09:00 12/14/24 09:43 Potassium Chloride Er 10 Meq Tablet.Er PO 10 meq DAILY WILTON Administration Pravastatin Sodium 20 mg 12/12/24 09:00 12/14/24 09:43 Pravastatin Sodium 20 Mg Tablet PO 20 mg DAILY WILTON Administration Vitamin D 50 mcg 12/12/24 09:00 12/14/24 09:30 Cholecalciferol (Vitamin D3) 25 Mcg Tablet PO 50 mcg DAILY WILTON Administration Discontinued Medications Generic Name Dose Route Start Last Admin Trade Name Freq PRN Reason Stop Dose Admin Acetaminophen 975 mg 12/11/24 11:40 12/11/24 12:09 Acetaminophen 325 Mg Tablet PO 12/11/24 11:41 975 mg ONCE ONE Administration Diltiazem HCl 240 mg 12/12/24 09:00 12/13/24 22:42 Diltiazem Hcl Cd 240 Mg Cap.Er.Deg PO 240 mg DAILY WILTON Administration Protocol Lidocaine HCl 10 ml 12/11/24 12:10 12/11/24 13:00 Lidocaine Hcl 2 % Mpf 5 Ml Vial INFILTRATI 12/11/24 12:11 10 ml ONCE ONE Administration Methocarbamol 750 mg 12/12/24 21:20 12/12/24 21:51 Methocarbamol 750 Mg Tablet PO 12/12/24 21:21 750 mg ONCE ONE Administration Morphine Sulfate 7.5 mg 12/11/24 14:52 12/11/24 15:03 Morphine Sulfate Immed Release 15 Mg Tablet PO 12/11/24 14:53 7.5 mg ONCE ONE Administration Ondansetron HCl 4 mg 12/11/24 14:52 12/11/24 15:02 Ondansetron Odt 4 Mg Tab.Rapdis TRANSLINGU 12/11/24 14:53 4 mg ONCE ONE Administration Oxycodone HCl 2.5 mg 12/11/24 11:40 12/11/24 12:09 Oxycodone Hcl Immed Release 5 Mg Tablet PO 12/11/24 11:41 2.5 mg ONCE ONE Administration Medical Decision Making Medical Decision Making MDM Narrative: Medical Decision Makin-year-old female on anticoagulation with nonsyncopal fall last night. Right wrist deformity. Plan for x-ray analgesia Right wrist x-ray with distal radial fracture mild dorsal angulation we will attempt reduction with oral analgesia and hematoma block Preliminary Favored Differential Diagnosis: Wrist fracture or dislocation. Hand fracture or dislocation. among additional considered etiologies Testing Interpreted Independently: ?Right wrist x-ray with dorsal angulated distal radial fracture. Radiology or Lab testing Results Reviewed: ?See below for details Consults: ?See below for details Independent Historians/External Chart Reviews: ?See below for details Social Determinants of Health Impacting MDM/Planning: ?See below for details Lab Data 12/12/24 09:37 12/12/24 09:37 Labs: Lab Results 12/11/24 12/12/24 12/13/24 Range/Units 16:35 09:37 08:33 WBC 13.9 H (4.8-10.8) X10*3/uL RBC 4.58 (4.20-5.50) X10*6/uL Hgb 14.4 (12.0-16.0) g/dl Hct 42.0 (37.0-47.0) % MCV 91.7 (80.0-98.0) fL MCH 31.4 (27.0-33.0) pg MCHC 34.3 (31.0-35.0) g/dl RDW 14.0 (11.0-16.0) % Plt Count 273 (160-400) X10*3/uL MPV 9.9 (9.4-12.3) fL Immature Gran % (Auto) 0.5 H (0.0-0.4) % Neut % (Auto) 72.5 (45-73) % Lymph % (Auto) 16.2 L (20-40) % Centre % (Auto) 10.6 (2-11) % Eos % (Auto) 0.0 (0-4) % Baso % (Auto) 0.2 (0-2) % Lymph # (Auto) 2.3 (1.2-4.9) X10*3/uL Centre # (Auto) 1.5 H (0.1-1.2) X10*3/uL Eos # (Auto) 0.0 (0.0-0.4) X10*3/uL Baso # (Auto) 0.0 (0.0-0.2) X10*3/uL Abs Immat Gran (auto) 0.07 H (0.00-0.03) X10*3/uL Absolute Neuts (auto) 10.1 H (2.0-8.3) x10*3/uL Absolute Nucleated RBC 0.000 (0.0-0.012) X10*3/uL Nucleated RBC % (auto) 0.0 (0.0-0.2) /100WBC PT 57.9 H 47.1 H (10.9-12.4) SEC INR 5.0 H* 4.1 H (0.9-1.1) Sodium 136 (135-145) mmol/L Potassium 3.6 (3.3-5.1) mmol/L Chloride 101 (96-108) mmol/L Carbon Dioxide 25 (22-29) mmol/L Anion Gap 14 (12-20) BUN 12 (9-16) mg/dL Creatinine 0.85 (0.5-1.4) mg/dL Estim Creat Clear Calc 46.9 Estimated GFR > 60 Random Glucose 124 H (60-115) mg/dL Calcium 9.8 (8.4-10.2) mg/dL Digoxin 0.4 L (0.8-2.0) ng/mL Influenza Type A (PCR) NEGATIVE (Negative) Influenza Type B (PCR) NEGATIVE (Negative) RSV RNA Qual (PCR) NEGATIVE (Negative) SARS-CoV-2 RNA (RT-PCR) NEGATIVE (Negative) 12/14/24 Range/Units 10:00 WBC (4.8-10.8) X10*3/uL RBC (4.20-5.50) X10*6/uL Hgb (12.0-16.0) g/dl Hct (37.0-47.0) % MCV (80.0-98.0) fL MCH (27.0-33.0) pg MCHC (31.0-35.0) g/dl RDW (11.0-16.0) % Plt Count (160-400) X10*3/uL MPV (9.4-12.3) fL Immature Gran % (Auto) (0.0-0.4) % Neut % (Auto) (45-73) % Lymph % (Auto) (20-40) % Centre % (Auto) (2-11) % Eos % (Auto) (0-4) % Baso % (Auto) (0-2) % Lymph # (Auto) (1.2-4.9) X10*3/uL Centre # (Auto) (0.1-1.2) X10*3/uL Eos # (Auto) (0.0-0.4) X10*3/uL Baso # (Auto) (0.0-0.2) X10*3/uL Abs Immat Gran (auto) (0.00-0.03) X10*3/uL Absolute Neuts (auto) (2.0-8.3) x10*3/uL Absolute Nucleated RBC (0.0-0.012) X10*3/uL Nucleated RBC % (auto) (0.0-0.2) /100WBC PT 25.8 H D (10.9-12.4) SEC INR 2.2 H (0.9-1.1) Sodium (135-145) mmol/L Potassium (3.3-5.1) mmol/L Chloride (96-108) mmol/L Carbon Dioxide (22-29) mmol/L Anion Gap (12-20) BUN (9-16) mg/dL Creatinine (0.5-1.4) mg/dL Estim Creat Clear Calc Estimated GFR Random Glucose (60-115) mg/dL Calcium (8.4-10.2) mg/dL Digoxin (0.8-2.0) ng/mL Influenza Type A (PCR) (Negative) Influenza Type B (PCR) (Negative) RSV RNA Qual (PCR) (Negative) SARS-CoV-2 RNA (RT-PCR) (Negative) Procedures Orthopedic Fracture Reduction Fracture #1: Side: right Fracture Reduction Location: radius Analgesia: hematoma block Technique: direct manipulation Post Reduction X-rays Demonstrate: acceptable reduction Post-reduction neuro exam: intact Post-reduction vascular exam: intact Splint Applied: Yes Patient Tolerated Procedure: well Orthopedic Splinting/Casting Injury #1: Side: right Upper Extremity Injury Location: wrist Upper Extremity Immobilizer: sugar tong splint Discharge Plan Discharge Clinical Impression: Distal radial fracture Patient Disposition: Home, Self-Care Instructions: Wrist Fracture in Adults (ED) Additional Instructions: We have identified wrist fracture of your radius bone. Distal Radius Fracture Discharge You have a fracture (break) in your distal radius, a bone in your wrist. Here?s what you need to know for your recovery: - Immobilization: Your wrist has been placed in a splint or cast to keep the bone in place while it heals. Keep the splint/cast clean and dry. Do not remove it unless instructed by your doctor. If you notice increased pain, numbness, tingling, or swelling that does not improve with elevation, contact your healthcare provider.[1] https://pubmed.ncbi.nlm.nih.gov/59389134 [2] https://pubmed.ncbi.nlm.nih.gov/38093759 [3] https:/ /[employer].CashYou/journals/jamanetworkopen/fullarticle/10.1001/jamanetworkopen.20 23.67781?utm_source=openevidence&utm_medium=referral - Swelling and Pain: Swelling is common. Keep your hand elevated above heart level as much as possible, especially for the first few days. Move your fingers often to help reduce swelling and prevent stiffness. You may use ice packs (wrapped in a towel) for 15-20 minutes at a time, several times a day. Take pain medication as prescribed or recommended by your doctor.[2] https://pubmed.ncbi.nlm.nih.gov/17753869 [4] https://www.ncbi.nlm.nih.gov/pmc/articles/SMI4372180/ [5] https://[employer].CashYou/journals/jamasurgery/fullarticle/10.1001/jamasurg.2020.5 672?utm_source=openevidence&utm_medium=referral - Activity: Do not use your injured arm for lifting, pushing, or pulling until cleared by your doctor. You may use your fingers for light activities, such as eating or writing, as long as it does not cause pain.[3] https://jamanetwork.com/journals/jamanetworkopen/fullarticle/1001/jamanetwork open67042?utm_source=openevidence&utm_medium=referral [5] https://jamanetwork.com/journals/jamasurgery/fullarti guanakito/1001/jamasurg.2020.5672?utm_source=openevidence&utm_medium=referral - Home Exercise: Begin gentle finger and shoulder movements as soon as possible to prevent stiffness. After your splint or cast is removed, you will be given instructions for wrist and hand exercises to help restore movement and strength. Most people do well with a home exercise program; supervised therapy is not routinely needed unless you are having difficulty regaining motion or function.[ 6] https://pubmed.ncbi.nlm.nih.gov/12088946 [4] https://www.ncbi.nlm.nih.gov/pmc/articles/SJH0612416/ [7] https://www.ncbi.nlm.nih.gov/pmc/articles/MUK2714264/ - Follow-Up: Attend all scheduled follow-up appointments. X-rays may be taken to check healing. The splint or cast is usually worn for 3-6 weeks, depending on your injury and healing progress.[1] https://pubmed.ncbi.nlm.nih.gov/94264119 [2] https://pubmed.ncbi.nlm.nih.gov/39511028 [3] https:/ /jamanetwork.com/journals/jamanetworkopen/fullarticle//jamanetworkopen44211?utm_source=openevidence&utm_medium=referral - When to Call: Contact your doctor if you experience: - Severe or increasing pain not relieved by medication - Numbness or tingling in your fingers - Blue or pale fingers - Swelling that does not improve with elevation - Wet, damaged, or tight cast/splint Questions or Concerns: If you have any questions about your care or recovery, please contact your healthcare provider. References * The Past, Present and Future of the Conservative Treatment of Distal Radius Fractures https://pubmed.ncbi.nlm.nih.gov/09387177 . de Flakita CAMILO, [address] [place], Opal EZ, et al. Injury. 2022;54 Suppl 5:865045. doi:10.1016/j.injury.2023.158358. * Common Fractures of the Radius and Ulna https://pubmed.ncbi.nlm.nih.gov/74234559 . Lema DS, Domingo SM, Puma N. [place] Family Physician. 2020;103(6):345-354. * Topology-Optimized Splints vs Casts for Distal Radius Fractures: A Randomized Clinical Trial https://jamanetBetterLesson.CashYou/journals/jamanetworkopen/fullarticle/10.1001/jamanetwo rkopen.48907?utm_source=openevidence&utm_medium=referral . Marciano H, Gian B, Ave J, et al. JOSE Network Open. 2023;7(2):r6240204. doi:10.1001/jamanetworkopen.2022.12146. * Practical Application of the 2020 Distal Radius Fracture AAOS/ASSH Clinical Practice Guideline: A Clinical Case https://www.ncbi.nlm.nih.gov/pmc/articles/RYC1062809/ . Nicki RN, Dorinda LOPEZ. The Journal of the [place] Academy [employer] Orthopaedic Surgeons. 2021;30(9):e714- e720. doi:10.5435/YJHEY-A-28-85799. * Surgical Plating vs Closed Reduction for Fractures in the Distal Radius in Older Patients: A Randomized Clinical Trial https://[employer].CashYou/journals/jamasurgery/fullarticle/10.1001/jamasurg.2019 .5672?utm_source=openevidence&utm_medium=referral . Scott Bennett, Bg PADILLA, Phong R, et al. JOSE Surgery. 2020;156(3):229-237. doi:10.1001/jamasurg.2020.5672. * Rehabilitation for Distal Radial Fractures in Adults https://pubmed.ncbi.nlm.nih.gov/63257718 . Tavo MULLINS, Johnnie Chang. The Mike Database of Systematic Reviews. 2015;(9):CG108543. doi:10.1002/21260991.IS058021.pub3. * [place] Academy of Orthopaedic Surgeons/[place] Society for Surgery of the Hand Clinical Practice Guideline Summary Management of Distal Radius Fractures https://www.ncbi.nlm.nih.gov/pmc/articles/BSY0694005/ . Nicki JOHNSON, Dorinda LOPEZ. The Journal of the [place] [employer] Orthopaedic Surgeons. 2021;30(4):e480- e486. doi:10.5435/JQHSW-S-73-47640. Prescriptions: New oxycodone 5 mg tablet 5 mg PO Q6H PRN (Reason: severe pain) Qty: 7 0RF Rx Instructions: Partial Fill upon patient request. No Action warfarin 1 mg tablet 3 mg PO DAILY Qty: 84 11RF fluoxetine 40 mg capsule 40 mg PO DAILY 90 Days Qty: 90 3RF cholecalciferol (vitamin D3) 50 mcg (2,000 unit) capsule 50 mcg PO DAILY 90 Days Qty: 90 0RF pravastatin 20 mg tablet 20 mg PO DAILY 90 Days Qty: 90 0RF diltiazem HCl [Cardizem CD] 240 mg capsule,extended release 24hr 240 mg PO DAILY 90 Days Qty: 90 0RF metoprolol succinate 50 mg tablet extended release 24 hr 50 mg PO DAILY 90 Days Qty: 90 0RF potassium chloride 10 mEq tablet extended release 10 meq PO DAILY 90 Days Qty: 90 0RF digoxin 125 mcg (0.125 mg) tablet 125 mcg PO DAILY 90 Days Qty: 90 0RF fluoxetine 20 mg capsule 20 mg PO DAILY (DME) underpads [Maxicare Underpads] 30 X 36 pad See Rx Instructions .Route Qty: 240 0RF Rx Instructions: As directed (DME) adult diapers pull-ups medium See Rx Instructions .Route .MEDSUPPLY Qty: 240 6RF Rx Instructions: As directed Referrals: [facility] [place] Orthopedic Surgeons [Provider Group, Hand Surgery] [facility] [Outside] - 1 day Referral Note: SHORT TERM REHAB Print Language: Portuguese
[2024-12-11] MEDS: oxyCODONE HCl Immed Release 5 MG TABLET 2.5 MG PO (12:09)
[2024-12-11 12:15] VITALS: BP 135/75; PULSE 102; RESP 16; TEMP 36.4; O2SAT 96
[2024-12-11] MEDS: Lidocaine HCl 2 % MPF 5 ML VIAL 10 ML INFILTRATI (13:00)
--- NOTE | 2024-12-11 13:35 | PC.NURSE ---
MD at bedside for lidocaine block and splint application
[2024-12-11 14:22] VITALS: BP 110/60; PULSE 95; RESP 18; TEMP 36.7; O2SAT 96
[2024-12-11] MEDS: Morphine Sulfate Immed Release 15 MG TABLET 7.5 MG PO (15:03)
--- NOTE | 2024-12-11 17:54 | MHC.CM.ED ---
CM met with patient and her friend/HCP Isa Lao ([phone]). Pt is A&Ox4. She is very [place]AC[place]. She lives alone in elderly housing in [place]. She uses a rollator walker. She does not ambulate without it. She fell and sustained a R wrist FX. She is active with [facility]. She receives [facility]. She has a nurse who comes to draw her blood for PT/INR every 2 weeks. She is on Coumadin. HCP is on file. PT is pending. Pt is willing to go to [facility]. Pt has [facility] Medicare Advantage. She will probably be with in over the weekend, as [facility] is closed over the weekend. Will place local referrals.
--- NOTE | 2024-12-11 18:06 | PC.NURSE ---
Addendum entered by Annetta Willis RN 12/11/24 18:07: Patient is a 74-year-old female on anticoagulation with nonsyncopal fall last night. Right wrist deformity. Right wrist x-ray with distal radial fracture mild dorsal angulation we will attempt reduction with oral analgesia and hematoma block. Splint intact with positive CSM. Patient alert and oriented. Respirations even and non-labored. Abdomen soft, non-tender with positive bowel sounds. Purewick intact. LE discolored dark with some thick skin. No edema noted. 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
[2024-12-11 18:35] LABS: Resp Syncy Virus RNA Qual PCR NEGATIVE (Negative); SARS COV2 PCR INHOUSE NEGATIVE (Negative)
[2024-12-11 20:00] VITALS: BP 142/79; PULSE 95; RESP 18; TEMP 36.4; O2SAT 95
--- NOTE | 2024-12-11 20:21 | PC.NURSE ---
this rn assumed care of pt @ 1900 pharmacy called to perform medrec
--- NOTE | 2024-12-12 03:09 | PC.NURSE ---
Assumed care of patient at 2330. Patient sleeping, even unlabored respirations. Right arm in a splint, maria guadalupe wrapped elevated on pillow. Callbell within reach.
[2024-12-12] MEDS: oxyCODONE HCl Immed Release 5 MG TABLET PO ×2 (05:03→19:57)
[2024-12-12 05:50] VITALS: BP 122/86; PULSE 112; RESP 16; TEMP 37.2; O2SAT 97
--- NOTE | 2024-12-12 08:31 | PHA.MEDREC ---
Pharmacy Consult ? Medication Reconciliation Pharmacy has completed the medication reconciliation. Med rec complete using medical history and pharmacy claims. Patient is poor historian and doesn't know medication taken even when prompted with names.
--- NOTE | 2024-12-12 08:42 | MHC.EDTECH ---
patient was washed up and changed brief
[2024-12-12 09:00] VITALS: BP 114/66; PULSE 101; RESP 16; TEMP 36.6; O2SAT 97
[2024-12-12 09:47] LABS: MANUAL DIFF FLAG NO
[2024-12-12 09:48] LABS: Hematocrit 42.0 % (37.0-47.0); Hemoglobin 14.4 g/dl (12.0-16.0); Imm Gran Abs Auto 0.07 X10*3/uL (0.00-0.03); Imm Gran Pct Auto 0.5 % (0.0-0.4); Lymphocytes Absolute Auto 2.3 X10*3/uL (1.2-4.9); Mean Corpuscular HGB Conc 34.3 g/dl (31.0-35.0); Mean Corpuscular Hemoglobin 31.4 pg (27.0-33.0); Mean Corpuscular Volume 91.7 fL (80.0-98.0); NRBC Abs Auto 0.000 X10*3/uL (0.0-0.012); NRBC Pct Auto 0.0 /100WBC (0.0-0.2); Platelet Count 273 X10*3/uL (160-400); Red Blood Count 4.58 X10*6/uL (4.20-5.50); White Blood Count 13.9 X10*3/uL (4.8-10.8)
[2024-12-12 10:01] LABS: Prothrombin Time 57.9 SEC (10.9-12.4)
[2024-12-12 10:05] LABS: INTERNATIONAL NORM RATIO 5.0 (0.9-1.1)
[2024-12-12 10:17] LABS: Anion Gap 14 (12-20); Blood Urea Nitrogen 12 mg/dL (9-16); Calcium 9.8 mg/dL (8.4-10.2); Carbon Dioxide 25 mmol/L (22-29); Chloride 101 mmol/L (96-108); Creatinine Clr Calc Pharmacy 46.9; Estimated Glomerular Filt Rate > 60; Potassium 3.6 mmol/L (3.3-5.1); Sodium 136 mmol/L (135-145)
[2024-12-12 10:18] LABS: Digoxin 0.4 ng/mL (0.8-2.0)
--- NOTE | 2024-12-12 11:30 | PC.NURSE ---
Assumed care at 0645, patient is alert and oriented, can be forgetful at times. Right arm in splint and maria guadalupe wrapped. Patient is comfortable for now.
[2024-12-12 11:43] VITALS: BP 117/49; PULSE 112
[2024-12-12] MEDS: Metoprolol Succinate ER 50 MG TAB.ER.24H PO (11:45)
[2024-12-12] MEDS: Potassium Chloride ER 10 MEQ TABLET.ER PO (12:12)
[2024-12-12] MEDS: dilTIAZem HCL CD 240 MG CAP.ER.DEG PO (12:13)
--- NOTE | 2024-12-12 13:40 | MHC.CM.PN ---
EMR REVIEWED, P.T. RECOMMENDING STR, CM MET W/PT TO DISCUSS MULTIPLE BED OFFERS, PT ACCEPTING BED AT [facility] WHO REPORT THEY WILL SUBMIT FOR INS AUTH ON 12/14, P.T. EVAL/HOME MED LIST SENT VIA [employer]. CM WILL CONT TO FOLLOW.
[2024-12-12 14:00] VITALS: BP 121/60; PULSE 109; RESP 20; TEMP 36.3; O2SAT 97
--- NOTE | 2024-12-12 18:32 | PC.NURSE ---
Assumed care of pt at 1730, pt resting quietly in bed at this time.Plan of care continues: Pt to [facility] pending insurance auth.
[2024-12-13] VITALS (7 sets, daily range): BP systolic 116–121; BP diastolic 61–70; PULSE 83–127; RESP 16–18; TEMP 36.4–36.7; O2SAT 95–98
[2024-12-13] MEDS: oxyCODONE HCl Immed Release 5 MG TABLET PO ×3 (02:57→22:23)
[2024-12-13 08:54] LABS: INTERNATIONAL NORM RATIO 4.1 (0.9-1.1); Prothrombin Time 47.1 SEC (10.9-12.4)
[2024-12-13] MEDS: Potassium Chloride ER 10 MEQ TABLET.ER PO (09:17)
[2024-12-13] MEDS: Metoprolol Succinate ER 50 MG TAB.ER.24H PO (09:21)
--- NOTE | 2024-12-13 22:40 | PC.NURSE ---
HR found to be elevated ranging from 110-130, irregularly irregular on radial palpation. GUSTAVO Cook notified that previous nurse did not notify this nurse of morning med refusal. at this time patient denies all symptoms except left knee and right hand pain. no CP or SOB, WOB appears normal. cms intact. BP normal. per PA, give cardizem cd now.
[2024-12-13] MEDS: dilTIAZem HCL CD 240 MG CAP.ER.DEG PO (22:42)
[2024-12-14] VITALS (7 sets, daily range): BP systolic 115–148; BP diastolic 75–79; PULSE 85–119; RESP 16–18; TEMP 36.1–36.8; O2SAT 92–95
--- NOTE | 2024-12-14 00:35 | PC.NURSE ---
no change from previous note although MSK pain improved. BP and HR charted. GUSTAVO Cook notified and responded via tiger. no further orders at this time. plan for assessment of potential dose modification by provider in the morning
--- NOTE | 2024-12-14 04:15 | PC.NURSE ---
HR remains labile, now ranges 100s-120s, no symptoms except states pain improved to 4/10 in right hand/left knee, declines analgesia, states needs are met, call shepherd in reach. vitals charted
[2024-12-14] MEDS: Metoprolol Succinate ER 50 MG TAB.ER.24H PO (09:43)
[2024-12-14] MEDS: Potassium Chloride ER 10 MEQ TABLET.ER PO (09:43)
--- NOTE | 2024-12-14 09:43 | PC.NURSE ---
This Rn assumed care of patient @ 0700 Patient alert and repsonsive Right arm in cast +CMS Patient refused cardizem yesterday AM but it was administered at 2242 yesterday Notified Provider Gio Received new order to start cardizem tonight @ 2200 Cardizam was scanned this AM but was not administered, medication was wasted. Unable to edit administration at this time
--- NOTE | 2024-12-14 10:10 | MHC.CM.ED ---
Addendum entered by Marcella Ramos 12/14/24 14:03: Insurance auth has been obtained. Patient can leave at 330pm. JENARO GARCIA booked. Med nec with chart. Patient, Shane RN and Aaliyah CHEN aware. Original Note: Patient remains in ER overflow. PeytonJesikamauricio Dave requesting updated PT note for HNE. Updated PT note and clinical updates sent via Careport. Continue to monitor for d/c needs.
[2024-12-14 11:12] LABS: INTERNATIONAL NORM RATIO 2.2 (0.9-1.1); Prothrombin Time 25.8 SEC (10.9-12.4)
--- NOTE | 2024-12-14 15:43 | PC.NURSE ---
Patient picked up by JENARO via ambulance Nurse to nurse report called to Lory at [facility]
== END 2024-12-14 15:36 | disposition home or self-care (01) ==
PROVIDERS: Emergency Medicine; Emergency Provider Emergency Medicine; PCP Internal Medicine
DX: S52.501A Unspecified fracture of the lower end of right radius, initial encounter for closed fracture (principal); M25.531 Pain in right wrist; R26.81 Unsteadiness on feet; X50.1XXA Overexertion from prolonged static or awkward postures, initial encounter; Y93.01 Activity, walking, marching and hiking; Y92.9 Unspecified place or not applicable; Y99.8 Other external cause status; Z79.899 Other long term (current) drug therapy; Z87.891 Personal history of nicotine dependence; Z51.81 Encounter for therapeutic drug level monitoring; Z03.818 Encounter for observation for suspected exposure to other biological agents ruled out
CPT/HCPCS: 25605; 29125; 36415; 73100; 73110; 80048; 80162; 85025; 85610; 87637; 97163; 97530; 99285; J2003

== ENCOUNTER → 2024-12-11 11:46 | Outpatient (BNV) | payer MEDICARE, SELFPAY | PROVIDERS: Emergency Provider Emergency Medicine; PCP Internal Medicine; Visit Provider Radiology Diagnostic Radiology | DX: S52.611D Displaced fracture of right ulna styloid process, subsequent encounter for closed fracture with routine healing (principal); S52.351D Displaced comminuted fracture of shaft of radius, right arm, subsequent encounter for closed fracture with routine healing | CPT/HCPCS: 73100; 73110 ==

== ENCOUNTER 2024-12-16 11:46 | Outpatient (REF) | payer MEDICARE, SELFPAY ==
--- NOTE | ~2024-12-16 | XR_ITS ---
EXAMINATION: XR WRIST, RIGHT CLINICAL INFORMATION: M25.531 - Pain in right wrist COMPARISON: 12/11/2024 TECHNIQUE: PA, lateral, and oblique views of the right wrist. FINDINGS: Fiberglas cast is in place. It obscures bony detail. There is increasing sclerosis across the fracture involving the distal radial metaphysis. There is stable mild dorsal tilt of the articular surface of distal radius. XR/XR wrist RT min 3V IMPRESSION: Healing distal radial fracture. Electronically signed by: Collins Lopez MD 12/16/2024 12:09 PM EDT
== END 2024-12-16 11:47 | disposition home or self-care (01) ==
LOC: HO.HOSX 11:46
PROVIDERS: PCP Internal Medicine; Visit Provider Orthopaedic Surgery
DX: S52.501A Unspecified fracture of the lower end of right radius, initial encounter for closed fracture (principal); S52.611A Displaced fracture of right ulna styloid process, initial encounter for closed fracture; I48.11 Longstanding persistent atrial fibrillation; W19.XXXA Unspecified fall, initial encounter; Z79.01 Long term (current) use of anticoagulants
CPT/HCPCS: 25600; 73110; 99202

== ENCOUNTER 2024-12-16 11:46 | Outpatient (AMB) | payer MEDICARE, SELFPAY ==
--- NOTE | 2024-12-16 12:05 | MHC.OFFVIS ---
Intake Visit Reasons: Right Distal Radius Fracture Intake Note: Catie is a 74 year old right hand dominant female who presents today for a evaluation of her right distal radius fracture, DOI 12/10/24. Patient reports she was trying to pull the blinds and when she turned to close her door and she fell backwards hurting her arm. Patient reports she not having pain at the moment. Denies numbness and tingling. Accompanied by: Friend Allergies paroxetine (From PAXIL) Allergy (Mild, Verified 12/11/24 11:17) ALOPECIA HPI HPI Right Distal Radius Fracture: Details: Catie is a 74 year old right hand dominant woman who presents for a right distal radius & ulnar styloid avulsion fracture, S/P fall, DOI: 12/10/24. She is seen today with her friend. She says she tripped and fell while trying to close her door & blinds at home before bed. She was seen in the ED on 12/11/24 where her fracture was reduced & splinted. She say she is doing okay. She denies any pain, numbness, or tingling. She lives alone and currently resides in [facility] since her injury. She ambulates with a walker. She is on Warfarin for Afib. [facility] Medical History Right shoulder pain Urge urinary incontinence Mild depression Dyslipidemia Hypovitaminosis D Current use of terminal operations manager anticoagulation Atrial fibrillation Depression with anxiety High cholesterol Hypertension Arthritis Surgical History Deficient knowledge of open reduction and internal (ORIF) fixation of hip History of cataract Family History Father Cancer Throat cancer Mother No problems noted. Sister No problems noted. Son No problems noted. Social History Housing: Apartment Alcohol intake: never Patient Tobacco Use Status: Former Tobacco user Tobacco use type: Cigarette e-Cigarette/Vaping Use: Never Used Second Hand Smoke Exposure: No service: No Current occupational status: retired Cognitive needs: Yes Hearing needs: No Vision needs: No Review of Systems Const All systems reviewed & are unremarkable except as noted in HPI and below Physical Exam Const General: cooperative, healthy appearing and no acute distress Orientation/consciousness: patient oriented x3 HEENT Head: Yes normocephalic and Yes atraumatic Eyes EOM: EOMs intact bilaterally Resp Effort & Inspection: normal respiratory effort and able to speak in complete sentences Cardio Jugular venous distension: no JVD Skin General skin exam: turgor normal Rashes: no rashes Neuro General: patient oriented x3 Extrem Other: Evaluation of Right Upper Extremity: The patient is alert, oriented, and in no acute distress She is seen in a [facility] splint Neuro: Median, Ulnar, Radial nerves motor and sensory intact and sensation is normal to the tips of all digits Vascular: Cap refill brisk ROM: She can weakly make a fist and extend all her digits Skin: No lacerations or abrasions. General: Mild swelling with some resolving ecchymosis. Very tender at the fracture site. No Erythema or evidence of infection. Radiographs: 3 views of the right wrist were taken and viewed by me today in clinic. They show a transverse extra-articular distal radius fracture loss of inclination and ~10 degrees apex volar angulation. She also has an ulnar styloid avulsion fracture. Psych Appearance: grossly normal Affect: normal affect Attitude: cooperative Office Procedures AMB Fracture Care Details: Fracture care 23057 Fracture Billing Code: Fracture Billing Code Assessment & Plan Assessment & Plan (1) Fracture of right distal radius: Code(s): S52.501A - Unspecified fracture of the lower end of right radius, initial encounter for closed fracture Category: Medical (2) Fracture of right ulnar styloid: Code(s): S52.611A - Displaced fracture of right ulna styloid process, initial encounter for closed fracture Category: Medical (3) Atrial fibrillation: Code(s): I48.91 - Unspecified atrial fibrillation Category: Medical Qualifiers: Atrial fibrillation type: longstanding persistent Qualified Code(s): I48.11 - Longstanding persistent atrial fibrillation (4) Current use of terminal operations manager anticoagulation: Code(s): Z79.01 - watermelon harvesting supervisor (current) use of anticoagulants Category: Medical Plan Assessment & Plan: 1. Right distal radius fracture, transverse From a fall, DOI: 12/10/24 Reduced in ED: 12/11/24 2. Right ulnar styloid avulsion fracture, S/P fall, DOI: 12/10/24 She is seen today with her friend, and she is currently residing in [facility]. I educated her about this condition I discussed operative and non-operative treatment options. She is on Warfarin and would not be able to undergo surgery until next week at the earliest. We did talk about possible operative open reduction internal fixation. She was more interested in being placed in a cast if possible. I explained that she would likely have a bit of a bump but that she would likely do well in a cast. She was placed in a gently moulded short arm cast, to be worn for the next 3 weeks I discussed activity modifications, she is to lift nothing heavier than a cellphone for the next 6 weeks. They should also avoid any heavy impact activities, falls, or sports activities for the next 8 weeks She will perform gentle finger ROM exercises at home I recommend the use of a forearm-bearing walker for ambulation, and ordered one of these for the patient, and I wrote a note to the [facility]pc to have PT train her in the use of this walker. She is unable to weight bear with her right wrist or hand for at least the next 6-8 weeks. She will follow up in 3 weeks, with X-rays, 3V R wrist, OOP Scribed for Anitha Marshall MD by Bernard Ashby, medical anthropologist, on 12/16/24 at 12:10 PM, EST. Orders: Orders XR wrist RT min 3V Today M25.531 - Pain in right wrist Coding Level of Care Code New Pt Level 4 (18245) Diagnoses Fracture of right distal radius S52.501A Fracture of right ulnar styloid S52.611A Longstanding persistent atrial fibrillation I48.11 Atrial fibrillation type: longstanding persistent Current use of longterm anticoagulation Z79.01 CPT Codes Fracture Care - Fracture Billing Code: Fracture Billing Code ([id number])
== END 2024-12-16 13:00 | disposition home or self-care (01) ==
LOC: HO.HOS 11:46
PROVIDERS: PCP Internal Medicine; Visit Provider Orthopaedic Surgery
DX: S52.501A Unspecified fracture of the lower end of right radius, initial encounter for closed fracture (principal); S52.611A Displaced fracture of right ulna styloid process, initial encounter for closed fracture; I48.11 Longstanding persistent atrial fibrillation; Z79.01 Long term (current) use of anticoagulants
CPT/HCPCS: 25600; 99204

== ENCOUNTER → 2024-12-16 11:54 | Outpatient (BNV) | payer MEDICARE, SELFPAY | PROVIDERS: PCP Internal Medicine; Visit Provider Radiology Diagnostic Radiology | DX: S52.501D Unspecified fracture of the lower end of right radius, subsequent encounter for closed fracture with routine healing (principal) | CPT/HCPCS: 73110 ==

== ENCOUNTER 2025-01-05 09:15 | Outpatient (REF) | payer MEDICARE, SELFPAY ==
--- NOTE | ~2025-01-05 | XR_ITS ---
EXAMINATION: XR WRIST, RIGHT CLINICAL INFORMATION: M25.531 - Pain in right wrist COMPARISON: Right wrist 12/16/2024 TECHNIQUE: PA, lateral, and oblique views of the right wrist. FINDINGS: The right wrist and distal forearm remains in a fiberglass cast. There is a distal radial metaphyseal fracture with some sclerosis around the fracture line suggestive of a healing there is mild dorsal angulation of the distal fragment which is unchanged to previous study. No other fracture seen. XR/XR wrist RT min 3V IMPRESSION: Slowly healing distal radial metaphyseal fracture with the entire right wrist and right distal forearm in a cast. Electronically signed by: Jr Lane MD 01/05/2025 02:52 PM EDT
--- OUTSIDE RECORDS SUMMARY | 2025-01-06 10:33 | XMS_ITS | Encounter Summary ---
Author Organization [employer] Address [address] [place] [address] Care Team Providers Care Mis Specialist Name Role Phone Denver Chaudhry MD Primary Care Provider [phone] Encounter Details Date Type Department Care Team (Late st Contact Info) Description 12/18/[address] [facility] - Main Lab [address] [facility] [place] [address] Denver Chaudhry MD [address] [place] [phone] Unspecified atrial fibrillation (CMS/HCC V24, CMS/HCC [...] 12/21/2024 6:00 AM EDT Unspecified atrial fibrillation ([facility]/HCC V24, [facility]/HCC V28) Heart failure, unspecified (CMS/HCC V24, CMS/HCC V28) Hyperlipidemia, unspecified documented in this encounter Results * (ABNORMAL) CBC auto differential (12/21/2024 6:00 AM EDT) [facility] WBC 8.9 4.8 - 10.8 K/mcL LAB HEMETOLOGY METHOD 12/21/2024 11:18 AM [facility] RBC 4.20 3.80 - 4.80 M/mcL LAB HEMETOLOGY METHOD 12/21/2024 11:18 AM [facility] Hemoglobin 13.0 11.5 - 16.0 g/dL LAB HEMETOLOGY METHOD 12/21/2024 11:18 AM [facility] Hematocrit 40.9 35.0 - 47.0 % LAB HEMETOLOGY METHOD 12/21/2024 11:18 AM [facility] MCV 96.7 79.0 - 98.0 FL LAB HEMETOLOGY METHOD 12/21/2024 11:18 AM [facility] MCH 30.7 27.0 - 32.0 pcg LAB HEMETOLOGY METHOD 12/21/2024 11:18 AM [facility] MCHC 31.8(L) 32.0 - 37.0 g/dL LAB HEMETOLOGY METHOD 12/21/2024 11:18 AM [facility] RDW 14.8 11.0 - 15.0 % LAB HEMETOLOGY METHOD 12/21/2024 11:18 AM [facility] Platelets 354 130 - 400 K/mcL LAB HEMETOLOGY METHOD 12/21/2024 11:18 AM [facility] MPV 9.9 7.0 - 11.0 FL LAB HEMETOLOGY METHOD 12/21/2024 11:18 AM [facility] NRBC 0.0 <1.0 % LAB HEMETOLOGY METHOD 12/21/2024 11:18 AM [facility] NRBC Absolute 0.00 <0.10 K/[facility] LAB HEMETOLOGY METHOD 12/21/2024 11:18 AM [facility] Neutrophils Relative 61.1 % LAB HEMETOLOGY METHOD 12/21/2024 11:18 AM [facility] Lymphocytes Relative 29.3 % LAB HEMETOLOGY METHOD 12/21/2024 11:18 AM [facility] Monocytes Relative 6.2 % LAB HEMETOLOGY METHOD 12/21/2024 11:18 AM [facility] Eosinophils Relative 1.5 % LAB HEMETOLOGY METHOD 12/21/2024 11:18 AM [facility] Basophils Relative 0.8 % LAB HEMETOLOGY METHOD 12/21/2024 11:18 AM [facility] Immature Granulocytes Relative 1.1 % LAB HEMETOLOGY METHOD 12/21/2024 11:18 AM [facility] Neutrophils Absolute 5.42 1.50 - 7.00 K/mcL LAB HEMETOLOGY METHOD 12/21/2024 11:18 AM [facility] Lymphocytes Absolute 2.60 1.00 - 5.00 K/mcL LAB HEMETOLOGY METHOD 12/21/2024 11:18 AM [facility] Monocytes Absolute 0.55 0.20 - 1.00 K/mcL LAB HEMETOLOGY METHOD 12/21/2024 11:18 AM [facility] Eosinophils Absolute 0.13 0.00 - 0.50 K/mcL LAB HEMETOLOGY METHOD 12/21/2024 11:18 AM EDT [facility] Basophils Absolute 0.07 0.00 - 0.20 K/[facility] LAB HEMETOLOGY METHOD 12/21/2024 11:18 AM EDT [facility] Immature Granulocytes Absolute 0.10(H) 0.00 - 0.03 K/[facility] LAB HEMETOLOGY METHOD 12/21/2024 11:18 AM EDT [facility] Blood Venous blood specimen / Unknown Venipuncture / Unknown 12/21/2024 6:00 AM EDT 12/21/2024 10:41 AM EDT Denver Chaudhry MD LAB BLOOD ORDERABLES Final Resu lt [facility] [address] [place] [address], * (ABNORMAL) Comprehensive metabolic panel (12/21/2024 6:00 AM EDT) Sodium 139 133 - 145 mmol/L LAB CHEMISTRY METHOD 12/21/2024 11:59 AM [facility] Potassium 4.3 3.5 - 5.5 mmol/L LAB CHEMISTRY METHOD 12/21/2024 11:59 AM [facility] Chloride 104 96 - 110 mmol/L LAB CHEMISTRY METHOD 12/21/2024 11:59 AM [facility] CO2 26 21 - 32 mmol/L LAB CHEMISTRY METHOD 12/21/2024 11:59 AM [facility] Anion Gap 9 3 - 11 LAB CHEMISTRY METHOD 12/21/2024 11:59 AM [facility] Glucose 69(L) 70 - 100 mg/dL LAB CHEMISTRY METHOD 12/21/2024 11:59 AM [facility] BUN 12 5 - 25 mg/dL LAB CHEMISTRY METHOD 12/21/2024 11:59 AM [facility] Creatinine 0.56 0.50 - 1.10 mg/dL LAB CHEMISTRY METHOD 12/21/2024 11:59 AM [facility] eGFR 95 >=60 mL/min/1. 73m2 LAB CHEMISTRY METHOD 12/21/2024 11:59 AM [facility] Comment:Calculation based on the Chronic Kidney Disease Epidemiology Collaboration (CKD-EPI) equation refit without adjustment for race. BUN/Creatinine Ratio 21.4 LAB CHEMISTRY METHOD 12/21/2024 11:59 AM [facility] Calcium 9.1 8.5 - 10.5 mg/dL LAB CHEMISTRY METHOD 12/21/2024 11:59 AM [facility] AST (SGOT) 75(H) 10 - 42 unit/L LAB CHEMISTRY METHOD 12/21/2024 11:59 AM [facility] ALT (SGPT) 68(H) 10 - 60 unit/L LAB CHEMISTRY METHOD 12/21/2024 11:59 AM [facility] Alkaline Phosphatase 109 42 - 121 unit/L LAB CHEMISTRY METHOD 12/21/2024 11:59 AM [facility] Total Protein 6.6 6.0 - 8.0 g/dL LAB CHEMISTRY METHOD 12/21/2024 11:59 AM [facility] Albumin 2.8(L) 3.2 - 5.0 g/dL LAB CHEMISTRY METHOD 12/21/2024 11:59 AM [facility] Total Bilirubin 0.4 0.0 - 1.4 mg/dL LAB CHEMISTRY METHOD 12/21/2024 11:59 AM [facility] Blood Venous blood specimen / Unknown Venipuncture / Unknown 12/21/2024 6:00 AM EDT 12/21/2024 10:41 AM EDT Denver Chaudhry MD LAB BLOOD ORDERABLES Final Resu lt Performing Organization Address [facility] Co de Phone Number [facility] [address] [place] [address], [place] [phone] * (ABNORMAL) Prothrombin time with INR (12/21/2024 6:00 AM EDT) Protime 68.4(H) 10.6 - 13.9 sec LAB COAGULATION METHOD 12/21/2024 11:32 AM EDT [facility] INR 5.6(HH) LAB COAGULATION METHOD 12/21/2024 11:32 AM EDT [facility] Blood Venous blood specimen / Unknown Venipuncture / Unknown 12/21/2024 6:00 AM EDT 12/21/2024 10:41 AM EDT Denver Chaudhry MD LAB BLOOD ORDERABLES Final Resu lt Performing Organization Address [facility] Co de Phone Number [facility] [address] [place] [address], [place] [phone] documented in this encounter Visit Diagnoses Diagnosis Unspecified atrial fibrillation (CMS/HCC V24, CMS/HCC V28) Heart failure, unspecified (CMS/HCC V24, CMS/HCC V28) Heart failure, unspecified Hyperlipidemia, unspecified documented in this encounter Care Teams Mis Specialist Relationship Specialty Start Date End Date Denver Chaudhry MD [address] [place] [address] PCP - General Internal Medicine 12/15/24 documented as of this encounter
--- OUTSIDE RECORDS SUMMARY | 2025-01-06 10:33 | XMS_ITS | Encounter Summary ---
Author Organization [email or web address] Address [address] [place] [address] Care Team Providers Care Haircutter Name Role Phone Denver Chaudhry MD Primary Care Provider [phone] Encounter Details Date Type Department Care Team (Late st Contact Info) Description 01/02/2025 Lab Requisition [facility] - Main Lab 299 [facility] [place] [address] Randall Ac MD [address] [place] [address] Unspecified atrial fibrillation (CMS/HCC V24, CMS/HCC V28) [...] V28) documented in this encounter Care Teams Haircutter Relationship Specialty Start Date End Date Denver Chaudhry MD [address] [place] [address] PCP - General Internal Medicine 12/15/24 documented as of this encounter
--- OUTSIDE RECORDS SUMMARY | 2025-01-06 10:33 | XMS_ITS | Encounter Summary ---
Author Organization [employer] Address [address] [place] [address] Care Team Providers Care Screen Cleaner Name Role Phone Denver Chaudhry MD Primary Care Provider [phone] Encounter Details Date Type Department Care Team (Late st Contact Info) Description 01/01/2025 Lab Requisition [facility] - Main Lab 299 [facility] [place] [address] Denver Chaudhry MD [address] [place] [address] Unspecified atrial fibrillation (CMS/HCC V24, CMS/HCC [...] CBC auto differential (01/04/2025 6:00 AM EDT) [facility] WBC 6.6 4.8 - 10.8 K/mcL LAB HEMETOLOGY METHOD 01/04/2025 10:34 AM [facility] RBC 4.20 3.80 - 4.80 M/mcL LAB HEMETOLOGY METHOD 01/04/2025 10:34 AM [facility] Hemoglobin 12.9 11.5 - 16.0 g/dL LAB HEMETOLOGY METHOD 01/04/2025 10:34 AM [facility] Hematocrit 41.4 35.0 - 47.0 % LAB HEMETOLOGY METHOD 01/04/2025 10:34 AM [facility] MCV 97.9 79.0 - 98.0 FL LAB HEMETOLOGY METHOD 01/04/2025 10:34 AM [facility] MCH 30.5 27.0 - 32.0 pcg LAB HEMETOLOGY METHOD 01/04/2025 10:34 AM [facility] MCHC 31.2(L) 32.0 - 37.0 g/dL LAB HEMETOLOGY METHOD 01/04/2025 10:34 AM [facility] RDW 15.5(H) 11.0 - 15.0 % LAB HEMETOLOGY METHOD 01/04/2025 10:34 AM [facility] Platelets 263 130 - 400 K/mcL LAB HEMETOLOGY METHOD 01/04/2025 10:34 AM [facility] MPV 10.1 7.0 - 11.0 FL LAB HEMETOLOGY METHOD 01/04/2025 10:34 AM [facility] NRBC 0.0 <1.0 % LAB HEMETOLOGY METHOD 01/04/2025 10:34 AM [facility] NRBC Absolute 0.00 <0.10 K/mcL LAB HEMETOLOGY METHOD 01/04/2025 10:34 AM [facility] Neutrophils Relative 53.6 % LAB HEMETOLOGY METHOD 01/04/2025 10:34 AM [facility] Lymphocytes Relative 33.8 % LAB HEMETOLOGY METHOD 01/04/2025 10:34 AM [facility] Monocytes Relative 8.6 % LAB HEMETOLOGY METHOD 01/04/2025 10:34 AM [facility] Eosinophils Relative 2.3 % LAB HEMETOLOGY METHOD 01/04/2025 10:34 AM [facility] Basophils Relative 1.1 % LAB HEMETOLOGY METHOD 01/04/2025 10:34 AM [facility] Immature Granulocytes Relative 0.6 % LAB HEMETOLOGY METHOD 01/04/2025 10:34 AM [facility] Neutrophils Absolute 3.55 1.50 - 7.00 K/mcL LAB HEMETOLOGY METHOD 01/04/2025 10:34 AM [facility] Lymphocytes Absolute 2.24 1.00 - 5.00 K/mcL LAB HEMETOLOGY METHOD 01/04/2025 10:34 AM [facility] Monocytes Absolute 0.57 0.20 - 1.00 K/mcL LAB HEMETOLOGY METHOD 01/04/2025 10:34 AM EDT [facility] Eosinophils Absolute 0.15 0.00 - 0.50 K/[facility] LAB HEMETOLOGY METHOD 01/04/2025 10:34 AM EDT [facility] Basophils Absolute 0.07 0.00 - 0.20 K/[facility] LAB HEMETOLOGY METHOD 01/04/2025 10:34 AM EDT [facility] Immature Granulocytes Absolute 0.04(H) 0.00 - 0.03 K/[facility] LAB HEMETOLOGY METHOD 01/04/2025 10:34 AM EDT [facility] Blood Venous blood specimen / Unknown Venipuncture / Unknown 01/04/2025 6:00 AM EDT 01/04/2025 10:06 AM EDT us Denver Chaudhry MD LAB BLOOD ORDERABLES Final Resu lt [facility] [address] [place] [address], [place] [phone] * (ABNORMAL) Comprehensive metabolic panel (01/04/2025 6:00 AM EDT) Sodium 139 133 - 145 mmol/L LAB CHEMISTRY METHOD 01/04/2025 10:59 AM [facility] Potassium 5.1 3.5 - 5.5 mmol/L LAB CHEMISTRY METHOD 01/04/2025 10:59 AM [facility] Chloride 105 96 - 110 mmol/L LAB CHEMISTRY METHOD 01/04/2025 10:59 AM [facility] CO2 29 21 - 32 mmol/L LAB CHEMISTRY METHOD 01/04/2025 10:59 AM [facility] Anion Gap 5 3 - 11 LAB CHEMISTRY METHOD 01/04/2025 10:59 AM [facility] Glucose 74 70 - 100 mg/dL LAB CHEMISTRY METHOD 01/04/2025 10:59 AM [facility] BUN 14 5 - 25 mg/dL LAB CHEMISTRY METHOD 01/04/2025 10:59 AM [facility] Creatinine 0.70 0.50 - 1.10 mg/dL LAB CHEMISTRY METHOD 01/04/2025 10:59 AM [facility] eGFR 90 >=60 mL/min/1. 73m2 LAB CHEMISTRY METHOD 01/04/2025 10:59 AM [facility] Comment:Calculation based on the Chronic Kidney Disease Epidemiology Collaboration (CKD-EPI) equation refit without adjustment for race. BUN/Creatinine Ratio 20.0 LAB CHEMISTRY METHOD 01/04/2025 10:59 AM [facility] Calcium 9.7 8.5 - 10.5 mg/dL LAB CHEMISTRY METHOD 01/04/2025 10:59 AM [facility] AST (SGOT) 47(H) 10 - 42 unit/L LAB CHEMISTRY METHOD 01/04/2025 10:59 AM [facility] ALT (SGPT) 48 10 - 60 unit/L LAB CHEMISTRY METHOD 01/04/2025 10:59 AM [facility] Alkaline Phosphatase 89 42 - 121 unit/L LAB CHEMISTRY METHOD 01/04/2025 10:59 AM [facility] Total Protein 6.7 6.0 - 8.0 g/dL LAB CHEMISTRY METHOD 01/04/2025 10:59 AM [facility] Albumin 3.3 3.2 - 5.0 g/dL LAB CHEMISTRY METHOD 01/04/2025 10:59 AM [facility] Total Bilirubin 0.4 0.0 - 1.4 mg/dL LAB CHEMISTRY METHOD 01/04/2025 10:59 AM [facility] Blood Venous blood specimen / Unknown Venipuncture / Unknown 01/04/2025 6:00 AM EDT 01/04/2025 10:06 AM EDT Denver Chaudhry MD LAB BLOOD ORDERABLES Final Resu lt Performing Organization Address City/[facility]/ZIP Co de Phone Number [facility] [address] [place] [address], [place] [phone] * (ABNORMAL) Prothrombin time with INR (01/04/2025 6:00 AM EDT) Protime 26.1(H) 10.6 - 13.9 sec LAB COAGULATION METHOD 01/04/2025 10:32 AM EDT [facility] INR 2.1 LAB COAGULATION METHOD 01/04/2025 10:32 AM EDT [facility] Blood Venous blood specimen / Unknown Venipuncture / Unknown 01/04/2025 6:00 AM EDT 01/04/2025 10:06 AM EDT Denver Chaudhry MD LAB BLOOD ORDERABLES Final Resu lt Performing Organization Address [facility]/ZIP Co de Phone Number [facility] [address] [place] [address], [place] [phone] documented in this encounter Visit Diagnoses Diagnosis Unspecified atrial fibrillation (CMS/HCC V24, CMS/HCC V28) Heart failure, unspecified (CMS/HCC V24, CMS/HCC V28) Heart failure, unspecified Essential (primary) hypertension Unspecified essential hypertension Hyperlipidemia, unspecified documented in this encounter Care Teams Screen Cleaner Relationship Specialty Start Date End Date Denver Chaudhry MD [address] [place] [address] PCP - General Internal Medicine 12/15/24 documented as of this encounter
--- OUTSIDE RECORDS SUMMARY | 2025-01-06 10:33 | XMS_ITS | Encounter Summary ---
Author Organization [employer] Address [address] [place] [address] Care Team Providers Care Sock Drier Name Role Phone Denver Chaudhry MD Primary Care Provider [phone] Encounter Details Date Type Department Care Team (Late st Contact Info) Description 12/17/2024 Lab Requisition [facility] - Main Lab [address] [facility] [address] [place] [address] Denver Chaudhry MD [address] [place] [address] Unspecified atrial fibrillation (CMS/HCC V24, [...] V28) documented in this encounter Care Teams Sock Drier Relationship Specialty Start Date End Date Denver Chaudhry MD [address] [place] [address] PCP - General Internal Medicine 12/15/24 documented as of this encounter
--- OUTSIDE RECORDS SUMMARY | 2025-01-06 10:33 | XMS_ITS | Encounter Summary ---
Author Organization [employer] Address [address] [place] [address] Care Team Providers Care Dry Goods Clerk Name Role Phone [place] Chaudhry MD Primary Care Provider [phone] Encounter Details Date Type Department Care Team (Late st Contact Info) Description 01/01/2025 Lab Requisition [facility] - Main Lab 299 [facility] [employer] [address] [place] Chaudhry MD [address] [place] [phone] Unspecified atrial fibrillation (CMS/HCC V24, CMS/HCC [...] LAB COAGULATION METHOD 01/01/2025 10:31 AM EDT [facility] INR 2.2 LAB COAGULATION METHOD 01/01/2025 10:31 AM T [facility] Blood Venous blood specimen / Unknown Venipuncture / Unknown 01/01/2025 5:56 AM EDT 01/01/2025 10:07 AM EDT [place] Chaudhry MD LAB BLOOD ORDERABLES Final Resu lt [facility] ([facility]) [facility] [address] [place] [address], documented in this encounter Visit Diagnoses Diagnosis Unspecified atrial fibrillation (CMS/HCC V24, CMS/HCC V28) documented in this encounter Care Teams Dry Goods Clerk Relationship Specialty Start Date End Date [place] Chaudhry MD [address] [place] [address] PCP - General Internal Medicine 12/15/24 documented as of this encounter
--- OUTSIDE RECORDS SUMMARY | 2025-01-06 10:33 | XMS_ITS | Encounter Summary ---
Author Organization [employer] Address [address] [place] [address] Care Team Providers Care Division Order Technician Name Role Phone [place] Chaudhry MD Primary Care Provider [phone] Encounter Details Date Type Department Care Team (Late st Contact Info) Description 12/23/2024 Lab Requisition [facility] - Main Lab 299 [facility] [place] [address] [place] Chaudhry MD [address] [place] [phone] Unspecified atrial fibrillation (CMS/HCC V24, CMS/HCC [...] CBC auto differential (12/24/2024 7:11 AM EDT) [facility] WBC 9.0 4.8 - 10.8 K/mcL LAB HEMETOLOGY METHOD 12/24/2024 8:45 AM [facility] RBC 4.20 3.80 - 4.80 M/mcL LAB HEMETOLOGY METHOD 12/24[facility]24 [facility] Hemoglobin 13.0 11.5 - 16.0 g/dL LAB HEMETOLOGY METHOD 12/24/2024 8:45 AM [facility] Hematocrit 40.2 35.0 - 47.0 % LAB HEMETOLOGY METHOD 12/24/2024 8:45 AM [facility] MCV 95.7 79.0 - 98.0 FL LAB HEMETOLOGY METHOD 12/24/2024 8:45 AM [facility] MCH 31.0 27.0 - 32.0 pcg LAB HEMETOLOGY METHOD 12/24/2024 8:45 AM [facility] MCHC 32.3 32.0 - 37.0 g/dL LAB HEMETOLOGY METHOD 12/24/2024 8:45 AM [facility] RDW 14.9 11.0 - 15.0 % LAB HEMETOLOGY METHOD 12/24/2024 8:45 AM EDT [facility] Platelets 351 130 - 400 K/mcL LAB HEMETOLOGY METHOD 12/24/2024 8:45 AM [facility] MPV 9.6 7.0 - 11.0 FL LAB HEMETOLOGY METHOD 12/24/2024 8:45 AM [facility] NRBC 0.0 <1.0 % LAB HEMETOLOGY METHOD 12/24/2024 8:45 AM [facility] NRBC Absolute 0.00 <0.10 K/mcL LAB HEMETOLOGY METHOD 12/24/2024 8:45 AM [facility] Neutrophils Relative 67.4 % LAB HEMETOLOGY METHOD 12/24/2024 8:45 AM [facility] Lymphocytes Relative 22.8 % LAB HEMETOLOGY METHOD 12/24/2024 8:45 AM [facility] Monocytes Relative 6.3 % LAB HEMETOLOGY METHOD 12/24/2024 8:45 AM [facility] Eosinophils Relative 1.4 % LAB HEMETOLOGY METHOD 12/24/2024 8:45 AM [facility] Basophils Relative 0.8 % LAB HEMETOLOGY METHOD 12/24/2024 8:45 AM [facility] Immature Granulocytes Relative 1.3 % LAB HEMETOLOGY METHOD 12/24/2024 8:45 AM [facility] Neutrophils Absolute 6.07 1.50 - 7.00 K/mcL LAB HEMETOLOGY METHOD 12/24/2024 8:45 AM [facility] Lymphocytes Absolute 2.05 1.00 - 5.00 K/mcL LAB HEMETOLOGY METHOD 12/24/2024 8:45 AM [facility] Monocytes Absolute 0.57 0.20 - 1.00 K/mcL LAB HEMETOLOGY METHOD 12/24/2024 8:45 AM EDT [facility] Eosinophils Absolute 0.13 0.00 - 0.50 K/mcL LAB HEMETOLOGY METHOD 12/24/2024 8:45 AM EDT [facility] Basophils Absolute 0.07 0.00 - 0.20 K/mcL LAB HEMETOLOGY METHOD 12/24/2024 8:45 AM EDT [facility] Immature Granulocytes Absolute 0.12(H) 0.00 - 0.03 K/mcL LAB HEMETOLOGY METHOD 12/24/2024 8:45 AM EDT [facility] Blood Venous blood specimen / Unknown Venipuncture / Unknown 12/24/2024 7:11 AM EDT 12/24/2024 8:19 AM EDT us [place] Chaudhry MD LAB BLOOD ORDERABLES Final Resu lt [facility] [address] [place] [address], [place] [phone] * Basic metabolic panel (12/24/2024 7:11 AM EDT) Sodium 138 133 - 145 mmol/L LAB CHEMISTRY METHOD 12/24/2024 9:06 AM [facility] Potassium 4.5 3.5 - 5.5 mmol/L LAB CHEMISTRY METHOD 12/24/2024 9:06 AM [facility] Chloride 107 96 - 110 mmol/L LAB CHEMISTRY METHOD 12/24/2024 9:06 AM [facility] CO2 26 21 - 32 mmol/L LAB CHEMISTRY METHOD 12/24/2024 9:06 AM [facility] Anion Gap 5 3 - 11 LAB CHEMISTRY METHOD 12/24/2024 9:06 AM [facility] Glucose 83 70 - 100 mg/dL LAB CHEMISTRY METHOD 12/24/2024 9:06 AM [facility] BUN 11 5 - 25 mg/dL LAB CHEMISTRY METHOD 12/24/2024 9:06 AM EDT [facility] Creatinine 0.55 0.50 - 1.10 mg/dL LAB CHEMISTRY METHOD 12/24/2024 9:06 AM EDT [facility] eGFR 96 >=60 mL/min/1. 73m2 LAB CHEMISTRY METHOD 12/24/2024 9:06 AM EDT [facility] Comment:Calculation based on the Chronic Kidney Disease Epidemiology Collaboration (CKD-EPI) equation refit without adjustment for race. BUN/Creatinine Ratio 20.0 LAB CHEMISTRY METHOD 12/24/2024 9:06 AM EDT [facility] Calcium 9.2 8.5 - 10.5 mg/dL LAB CHEMISTRY METHOD 12/24/2024 9:06 AM EDT [facility] Blood Venous blood specimen / Unknown Venipuncture / Unknown 12/24/2024 7:11 AM EDT 12/24/2024 8:19 AM EDT us [place] Chaudhry MD LAB BLOOD ORDERABLES Final Resu lt [facility] [address] [place] [address], [place] [phone] * (ABNORMAL) Prothrombin time with INR (12/24/2024 7:11 AM EDT) Protime 24.1(H) 10.6 - 13.9 sec LAB COAGULATION METHOD 12/24/2024 8:55 AM EDT [facility] INR 1.9 LAB COAGULATION METHOD 12/24/2024 8:55 AM EDT [facility] Blood Venous blood specimen / Unknown Venipuncture / Unknown 12/24/2024 7:11 AM EDT 12/24/2024 8:19 AM EDT us [place] Chaudhry MD LAB BLOOD ORDERABLES Final Resu lt [facility] HOSPITAL LAB [address] [place] [address], documented in this encounter Visit Diagnoses Diagnosis Unspecified atrial fibrillation (CMS/HCC V24, CMS/HCC V28) Heart failure, unspecified (CMS/HCC V24, CMS/HCC V28) Heart failure, unspecified Essential (primary) hypertension Unspecified essential hypertension Hyperlipidemia, unspecified documented in this encounter Care Teams Division Order Technician Relationship Specialty Start Date End Date [place] Chaudhry MD [address] [place] [address] PCP - General Internal Medicine 12/15/24 documented as of this encounter
--- OUTSIDE RECORDS SUMMARY | 2025-01-06 10:33 | XMS_ITS | Encounter Summary ---
Author Organization [employer] Address [address] [place] [address] Care Team Providers Care Bag Turner Name Role Phone [place] Chaudhry MD Primary Care Provider [phone] Encounter Details Date Type Department Care Team (Late st Contact Info) Description 12/26/2024 Lab Requisition [facility] - Main Lab 299 [facility] [place] [address] [place] Chaudhry MD [address] [place] [phone] Unspecified atrial fibrillation (CMS/HCC V24, CMS/HCC [...] CBC auto differential (12/28/2024 5:45 AM EDT) [facility] WBC 8.5 4.8 - 10.8 K/mcL LAB HEMETOLOGY METHOD 12/28/2024 10:56 AM [facility] RBC 4.20 3.80 - 4.80 M/mcL LAB HEMETOLOGY METHOD 12/28/2024 10:56 AM [facility] Hemoglobin 13.2 11.5 - 16.0 g/dL LAB HEMETOLOGY METHOD 12/28/2024 10:56 AM [facility] Hematocrit 41.1 35.0 - 47.0 % LAB HEMETOLOGY METHOD 12/28/2024 10:56 AM [facility] MCV 97.4 79.0 - 98.0 FL LAB HEMETOLOGY METHOD 12/28/2024 10:56 AM [facility] MCH 31.3 27.0 - 32.0 pcg LAB HEMETOLOGY METHOD 12/28/2024 10:56 AM [facility] MCHC 32.1 32.0 - 37.0 g/dL LAB HEMETOLOGY METHOD 12/28/2024 10:56 AM [facility] RDW 15.3(H) 11.0 - 15.0 % LAB HEMETOLOGY METHOD 12/28/2024 10:56 AM [facility] Platelets 342 130 - 400 K/mcL LAB HEMETOLOGY METHOD 12/28/2024 10:56 AM [facility] MPV 9.8 7.0 - 11.0 FL LAB HEMETOLOGY METHOD 12/28/2024 10:56 AM [facility] NRBC 0.0 <1.0 % LAB HEMETOLOGY METHOD 12/28/2024 10:56 AM [facility] NRBC Absolute 0.00 <0.10 K/mcL LAB HEMETOLOGY METHOD 12/28/2024 10:56 AM [facility] Neutrophils Relative 60.2 % LAB HEMETOLOGY METHOD 12/28/2024 10:56 AM [facility] Lymphocytes Relative 29.0 % LAB HEMETOLOGY METHOD 12/28/2024 10:56 AM [facility] Monocytes Relative 7.1 % LAB HEMETOLOGY METHOD 12/28/2024 10:56 AM [facility] Eosinophils Relative 2.0 % LAB HEMETOLOGY METHOD 12/28/2024 10:56 AM [facility] Basophils Relative 0.8 % LAB HEMETOLOGY METHOD 12/28/2024 10:56 AM [facility] Immature Granulocytes Relative 0.9 % LAB HEMETOLOGY METHOD 12/28/2024 10:56 AM [facility] Neutrophils Absolute 5.13 1.50 - 7.00 K/mcL LAB HEMETOLOGY METHOD 12/28/2024 10:56 AM [facility] Lymphocytes Absolute 2.48 1.00 - 5.00 K/mcL LAB HEMETOLOGY METHOD 12/28/2024 10:56 AM [facility] Monocytes Absolute 0.61 0.20 - 1.00 K/mcL LAB HEMETOLOGY METHOD 12/28/2024 10:56 AM EDT [facility] Eosinophils Absolute 0.17 0.00 - 0.50 K/[facility] LAB HEMETOLOGY METHOD 12/28/2024 10:56 AM EDT [facility] Basophils Absolute 0.07 0.00 - 0.20 K/[facility] LAB HEMETOLOGY METHOD 12/28/2024 10:56 AM EDT [facility] Immature Granulocytes Absolute 0.08(H) 0.00 - 0.03 K/[facility] LAB HEMETOLOGY METHOD 12/28/2024 10:56 AM EDT [facility] Blood Venous blood specimen / Unknown Venipuncture / Unknown 12/28/2024 5:45 AM EDT 12/28/2024 10:09 AM EDT us [place] Chaudhry MD LAB BLOOD ORDERABLES Final Resu lt [facility] [address] [place] [address], [place] [phone] * (ABNORMAL) Comprehensive metabolic panel (12/28/2024 5:45 AM EDT) Sodium 137 133 - 145 mmol/L LAB CHEMISTRY METHOD 12/28/2024 11:15 AM [facility] Potassium 5.1 3.5 - 5.5 mmol/L LAB CHEMISTRY METHOD 12/28/2024 11:15 AM [facility] Chloride 104 96 - 110 mmol/L LAB CHEMISTRY METHOD 12/28/2024 11:15 AM [facility] CO2 27 21 - 32 mmol/L LAB CHEMISTRY METHOD 12/28/2024 11:15 AM [facility] Anion Gap 6 3 - 11 LAB CHEMISTRY METHOD 12/28/2024 11:15 AM [facility] Glucose 77 70 - 100 mg/dL LAB CHEMISTRY METHOD 12/28/2024 11:15 AM [facility] BUN 18 5 - 25 mg/dL LAB CHEMISTRY METHOD 12/28/2024 11:15 AM [facility] Creatinine 0.94 0.50 - 1.10 mg/dL LAB CHEMISTRY METHOD 12/28/2024 11:15 AM [facility] eGFR 63 >=60 mL/min/1. 73m2 LAB CHEMISTRY METHOD 12/28/2024 11:15 AM [facility] Comment:Calculation based on the Chronic Kidney Disease Epidemiology Collaboration (CKD-EPI) equation refit without adjustment for race. BUN/Creatinine Ratio 19.1 LAB CHEMISTRY METHOD 12/28/2024 11:15 AM [facility] Calcium 9.7 8.5 - 10.5 mg/dL LAB CHEMISTRY METHOD 12/28/2024 11:15 AM [facility] AST (SGOT) 60(H) 10 - 42 unit/L LAB CHEMISTRY METHOD 12/28/2024 11:15 AM [facility] ALT (SGPT) 53 10 - 60 unit/L LAB CHEMISTRY METHOD 12/28/2024 11:15 AM [facility] Alkaline Phosphatase 102 42 - 121 unit/L LAB CHEMISTRY METHOD 12/28/2024 11:15 AM [facility] Total Protein 6.8 6.0 - 8.0 g/dL LAB CHEMISTRY METHOD 12/28/2024 11:15 AM [facility] Albumin 3.2 3.2 - 5.0 g/dL LAB CHEMISTRY METHOD 12/28/2024 11:15 AM [facility] Total Bilirubin 0.4 0.0 - 1.4 mg/dL LAB CHEMISTRY METHOD 12/28/2024 11:15 AM [facility] Blood Venous blood specimen / Unknown Venipuncture / Unknown 12/28/2024 5:45 AM EDT 12/28/2024 10:09 AM EDT [place] Chaudhry MD LAB BLOOD ORDERABLES Final Resu lt Performing Organization Address City/[facility]/ZIP Co de Phone Number [facility] [address] [place] [address], [place] [phone] * (ABNORMAL) Prothrombin time with INR (12/28/2024 5:45 AM EDT) Protime 29.6(H) 10.6 - 13.9 sec LAB COAGULATION METHOD 12/28/2024 10:41 AM EDT [facility] INR 2.4 LAB COAGULATION METHOD 12/28/2024 10:41 AM EDT [facility] Blood Venous blood specimen / Unknown Venipuncture / Unknown 12/28/2024 5:45 AM EDT 12/28/2024 10:09 AM EDT [place] Chaudhry MD LAB BLOOD ORDERABLES Final Resu lt Performing Organization Address [facility]/ZIP Co de Phone Number [facility] [address] [place] [address], [place] [phone] documented in this encounter Visit Diagnoses Diagnosis Unspecified atrial fibrillation (CMS/HCC V24, CMS/HCC V28) Heart failure, unspecified (CMS/HCC V24, CMS/HCC V28) Heart failure, unspecified Essential (primary) hypertension Unspecified essential hypertension Hyperlipidemia, unspecified documented in this encounter Care Teams Bag Turner Relationship Specialty Start Date End Date [place] Chaudhry MD [address] [place] [address] PCP - General Internal Medicine 12/15/24 documented as of this encounter
--- OUTSIDE RECORDS SUMMARY | 2025-01-06 10:33 | XMS_ITS | Encounter Summary ---
Author Organization [facility] Address [address] [place] [address] Care Team Providers Care Small Animal Veterinarian Name Role Phone [place] Chaudhry MD Primary Care Provider Encounter Details Date Type Department Care Team (Late st Contact Info) Description 12/22/2024 Lab Requisition [facility] - Main Lab 299 [facility] [place] [address] [place] Chaudhry MD [address] [place] [phone] Unspecified atrial fibrillation (CMS/HCC V24, CMS/HCC [...] LAB COAGULATION METHOD 12/22/2024 11:46 AM EDT [facility] INR 2.5 LAB COAGULATION METHOD 12/22/2024 11:46 AM EDT [facility] Blood Venous blood specimen / Unknown Venipuncture / Unknown 12/22/2024 5:11 AM EDT 12/22/2024 10:45 AM EDT [place] Chaudhry MD LAB BLOOD ORDERABLES [facility] [address] [place] [address], documented in this encounter Visit Diagnoses Diagnosis Unspecified atrial fibrillation (CMS/HCC V24, CMS/HCC V28) documented in this encounter Care Teams Small Animal Veterinarian Relationship Specialty Start Date End Date [place] Chaudhry MD [address] [place] [address] PCP - General Internal Medicine 12/15/24 documented as of this encounter
--- OUTSIDE RECORDS SUMMARY | 2025-01-06 10:33 | XMS_ITS | Encounter Summary ---
Author Organization [employer] Address [address] [place] [address] Care Team Providers Care Harnessmaker Apprentice Name Role Phone [place] Chaudhry MD Primary Care Provider [phone] Encounter Details Date Type Department Care Team (Late st Contact Info) Description 12/15/2024 Lab Requisition [facility] - Main Lab 299 [facility] [place] [address] [place] Chaudhry MD [address] [place] [phone] Heart failure, unspecified (CMS/HCC V24, CMS/HCC V28); Unspecified atrial fibrillation (CMS/HCC V24, CMS/HCC V28); Hyperlipidemia, unspecified; Other mcc (current) drug therapy Social History Tobacco Use [...] (CMS/HCC V24, CMS/HCC V28) Hyperlipidemia, unspecified 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 PROTHROMBIN TIME WITH INR Routine 12/15/2024 5:30 AM EDT Heart failure, unspecified (CMS/HCC V24, CMS/HCC V28) Unspecified atrial fibrillation (CMS/HCC V24, CMS/HCC V28) Hyperlipidemia, unspecified Other mcc (current) drug therapy CBC AND DIFFERENTIAL Routine 12/15/2024 5:30 AM EDT Heart failure, unspecified (CMS/HCC V24, CMS/HCC V28) Unspecified atrial fibrillation (CMS/HCC V24, CMS/HCC V28) Hyperlipidemia, unspecified Other mcc (current) drug therapy DIGOXIN LEVEL Routine 12/15/2024 5:30 AM EDT Heart failure, unspecified (CMS/HCC V24, CMS/HCC V28) Unspecified atrial fibrillation (CMS/HCC V24, CMS/HCC V28) Hyperlipidemia, unspecified 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 COMPREHENSIVE METABOLIC PANEL Routine 12/15/2024 5:30 AM EDT Heart failure, unspecified (CMS/HCC V24, CMS/HCC V28) Unspecified atrial fibrillation (CMS/HCC V24, CMS/HCC V28) Hyperlipidemia, unspecified 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 documented in this encounter Results * (ABNORMAL) CBC auto differential (12/15/2024 5:30 AM EDT) [facility] WBC 11.7(H) 4.8 - 10.8 K/mcL LAB HEMETOLOGY METHOD 12/15/2024 10:21 AM [facility] RBC 4.40 3.80 - 4.80 M/mcL LAB HEMETOLOGY METHOD 12/15/2024 10:21 AM [facility] Hemoglobin 13.3 11.5 - 16.0 g/dL LAB HEMETOLOGY METHOD 12/15/2024 10:21 AM [facility] Hematocrit 41.1 35.0 - 47.0 % LAB HEMETOLOGY METHOD 12/15/2024 10:21 AM [facility] MCV 93.4 79.0 - 98.0 FL LAB HEMETOLOGY METHOD 12/15/2024 10:21 AM [facility] MCH 30.2 27.0 - 32.0 pcg LAB HEMETOLOGY METHOD 12/15/2024 10:21 AM [facility] MCHC 32.4 32.0 - 37.0 g/dL LAB HEMETOLOGY METHOD 12/15/2024 10:21 AM [facility] RDW 14.3 11.0 - 15.0 % LAB HEMETOLOGY METHOD 12/15/2024 10:21 AM [facility] Platelets 296 130 - 400 K/mcL LAB HEMETOLOGY METHOD 12/15/2024 10:21 AM [facility] MPV 10.4 7.0 - 11.0 FL LAB HEMETOLOGY METHOD 12/15/2024 10:21 AM [facility] NRBC 0.0 <1.0 % LAB HEMETOLOGY METHOD 12/15/2024 10:21 AM [facility] NRBC Absolute 0.00 <0.10 K/mcL LAB HEMETOLOGY METHOD 12/15/2024 10:21 AM [facility] Neutrophils Relative 70.8 % LAB HEMETOLOGY METHOD 12/15/2024 10:21 AM [facility] Lymphocytes Relative 16.9 % LAB HEMETOLOGY METHOD 12/15/2024 10:21 AM [facility] Monocytes Relative 10.9 % LAB HEMETOLOGY METHOD 12/15/2024 10:21 AM [facility] Eosinophils Relative 0.3 % LAB HEMETOLOGY METHOD 12/15/2024 10:21 AM [facility] Basophils Relative 0.4 % LAB HEMETOLOGY METHOD 12/15/2024 10:21 AM [facility] Immature Granulocytes Relative 0.7 % LAB HEMETOLOGY METHOD 12/15/2024 10:21 AM [facility] Neutrophils Absolute 8.25(H) 1.50 - 7.00 K/mcL LAB HEMETOLOGY METHOD 12/15/2024 10:21 AM EDT [facility] Lymphocytes Absolute 1.97 1.00 - 5.00 K/[facility] LAB HEMETOLOGY METHOD 12/15/2024 10:21 AM EDT [facility] Monocytes Absolute 1.27(H) 0.20 - 1.00 K/mcL LAB HEMETOLOGY METHOD 12/15/2024 10:21 AM EDT [facility] Eosinophils Absolute 0.03 0.00 - 0.50 K/[facility] LAB HEMETOLOGY METHOD 12/15/2024 10:21 AM EDT [facility] Basophils Absolute 0.05 0.00 - 0.20 K/[facility] LAB HEMETOLOGY METHOD 12/15/2024 10:21 AM EDT [facility] Immature Granulocytes Absolute 0.08(H) 0.00 - 0.03 K/[facility] LAB HEMETOLOGY METHOD 12/15/2024 10:21 AM EDT [facility] Blood Venous blood specimen / Unknown Venipuncture / Unknown 12/15/2024 5:30 AM EDT 12/15/2024 9:22 AM EDT us [place] Chaudhry MD LAB BLOOD ORDERABLES Final Resu lt [facility] [address] [place] [address], * Digoxin level (12/15/2024 5:30 AM EDT) Digoxin Lvl 0.8 0.5 - 2.0 ng/mL LAB CHEMISTRY METHOD 12/15/2024 11:02 AM EDT [facility] Blood Venous blood specimen / Unknown Venipuncture / Unknown 12/15/2024 5:30 AM EDT 12/15/2024 9:22 AM EDT us [place] Chaudhry MD LAB BLOOD ORDERABLES Final Resu lt [facility] [address] [place] [address], * (ABNORMAL) Comprehensive metabolic panel (12/15/2024 5:30 AM EDT) Sodium 136 133 - 145 mmol/L LAB CHEMISTRY METHOD 12/15/2024 11:02 AM [facility] Potassium 4.1 3.5 - 5.5 mmol/L LAB CHEMISTRY METHOD 12/15/2024 11:02 AM [facility] Chloride 101 96 - 110 mmol/L LAB CHEMISTRY METHOD 12/15/2024 11:02 AM [facility] CO2 26 21 - 32 mmol/L LAB CHEMISTRY METHOD 12/15/2024 11:02 AM [facility] Anion Gap 9 3 - 11 LAB CHEMISTRY METHOD 12/15/2024 11:02 AM [facility] Glucose 89 70 - 100 mg/dL LAB CHEMISTRY METHOD 12/15/2024 11:02 AM [facility] BUN 11 5 - 25 mg/dL LAB CHEMISTRY METHOD 12/15/2024 11:02 AM [facility] Creatinine 0.58 0.50 - 1.10 mg/dL LAB CHEMISTRY METHOD 12/15/2024 11:02 AM [facility] eGFR 95 >=60 mL/min/1. 73m2 LAB CHEMISTRY METHOD 12/15/2024 11:02 AM [facility] Comment:Calculation based on the Chronic Kidney Disease Epidemiology Collaboration (CKD-EPI) equation refit without adjustment for race. BUN/Creatinine Ratio 19.0 LAB CHEMISTRY METHOD 12/15/2024 11:02 AM [facility] Calcium 9.3 8.5 - 10.5 mg/dL LAB CHEMISTRY METHOD 12/15/2024 11:02 AM [facility] AST (SGOT) 54(H) 10 - 42 unit/L LAB CHEMISTRY METHOD 12/15/2024 11:02 AM EDT [facility] ALT (SGPT) 50 10 - 60 unit/L LAB CHEMISTRY METHOD 12/15/2024 11:02 AM EDT [facility] Alkaline Phosphatase 84 42 - 121 unit/L LAB CHEMISTRY METHOD 12/15/2024 11:02 AM EDT [facility] Total Protein 6.6 6.0 - 8.0 g/dL LAB CHEMISTRY METHOD 12/15/2024 11:02 AM EDT [facility] Albumin 3.1(L) 3.2 - 5.0 g/dL LAB CHE[facility]STRY METHOD 12/[facility]24 [facility] Total Bilirubin 1.1 0.0 - 1.4 mg/dL LAB CHEMISTRY METHOD 12/15/2024 11:02 AM EDT [facility] Blood Venous blood specimen / Unknown Venipuncture / Unknown 12/15/2024 5:30 AM EDT 12/15/2024 9:22 AM EDT us [place] Chaudhry MD LAB BLOOD ORDERABLES Final Resu lt [facility] [address] [place] [address], * (ABNORMAL) Prothrombin time with INR (12/15/2024 5:30 AM EDT) Protime 23.7(H) 10.6 - 13.9 sec LAB COAGULATION METHOD 12/15/2024 9:48 AM EDT [facility] INR 1.9 LAB COAGULATION METHOD 12/15/2024 9:48 AM EDT [facility] Blood Venous blood specimen / Unknown Venipuncture / Unknown 12/15/2024 5:30 AM EDT 12/15/2024 9:22 AM EDT us [place] Chaudhry MD LAB BLOOD ORDERABLES Final Resu lt [facility] [address] [place] [address], documented in this encounter Visit Diagnoses Diagnosis Heart failure, unspecified (CMS/HCC V24, CMS/HCC V28) Heart failure, unspecified Unspecified atrial fibrillation (CMS/HCC V24, CMS/HCC V28) Hyperlipidemia, unspecified Other mcc (current) drug therapy documented in this encounter Care Teams Harnessmaker Apprentice Relationship Specialty Start Date End Date [place] Chaudhry MD [address] [place] [address] PCP - General Internal Medicine 12/15/24 documented as of this encounter
--- OUTSIDE RECORDS SUMMARY | 2025-01-06 10:33 | XMS_ITS | Encounter Summary ---
Author Organization [facility] Address [address] [place] [address] Care Team Providers Care Saxophone Teacher Name Role Phone Denver Chaudhry MD Primary Care Provider [phone] Encounter Details Date Type Department Care Team (Late st Contact Info) Description 12/16/2024 Lab Requisition [facility] - Main Lab [address] [facility] [place] [address] Denver Chaudhry MD [address] [place] [phone] Heart failure, unspecified (CMS/HCC V24, CMS/HCC [...] 12/17/2024 8:32 AM EDT Heart failure, unspecified ([facility] V24, [facility] V28) Essential (primary) hypertension Hyperlipidemia, unspecified documented in this encounter Results * (ABNORMAL) Prothrombin time with INR (12/17/2024 8:32 AM EDT) Pathologist [facility] Protime 34.1(H) 10.6 - 13.9 sec LAB COAGULATION METHOD 12/17/2024 10:25 AM EDT [facility] INR 2.8 LAB COAGULATION METHOD 12/17/2024 10:25 AM EDT [facility] Blood Venous blood specimen / Unknown Venipuncture / Unknown 12/17/2024 8:32 AM EDT 12/17/2024 9:56 AM EDT Denver Chaudhry MD LAB BLOOD ORDERABLES Final Resu lt [facility] [address] [place] [address], * (ABNORMAL) CBC auto differential (12/17/2024 8:32 AM EDT) [facility] WBC 9.6 4.8 - 10.8 K/mcL LAB HEMETOLOGY METHOD 12/17/2024 10:24 AM EDT [facility] RBC 4.30 3.80 - 4.80 M/[facility] LAB HEMETOLOGY METHOD 12/17/2024 10:24 AM EDT [facility] Hemoglobin 13.1 11.5 - 16.0 g/dL LAB HEMETOLOGY METHOD 12/17/2024 10:24 AM EDT [facility] Hematocrit 40.4 35.0 - 47.0 % LAB HEMETOLOGY METHOD 12/17/2024 10:24 AM EDT [facility] MCV 93.5 79.0 - 98.0 FL LAB HEMETOLOGY METHOD 12/17/2024 10:24 AM [facility] MCH 30.3 27.0 - 32.0 pcg LAB HEMETOLOGY METHOD 12/17/2024 10:24 AM [facility] LAB MCHC 32.4 32.0 - 37.0 g/dL LAB HEMETOLOGY METHOD 12/17/2024 10:24 AM [facility] RDW 14.4 11.0 - 15.0 % LAB HEMETOLOGY METHOD 12/17/2024 10:24 AM [facility] LAB Platelets 334 130 - 400 K/mcL LAB HEMETOLOGY METHOD 12/17/2024 10:24 AM [facility] LAB MPV 10.1 7.0 - 11.0 FL LAB HEMETOLOGY METHOD 12/17/2024 10:24 AM [facility] NRBC 0.0 <1.0 % LAB HEMETOLOGY METHOD 12/17/2024 10:24 AM [facility] NRBC Absolute 0.00 <0.10 K/mcL LAB HEMETOLOGY METHOD 12/17/2024 10:24 AM [facility] Neutrophils Relative 63.7 % LAB HEMETOLOGY METHOD 12/17/2024 10:24 AM [facility] Lymphocytes Relative 24.5 % LAB HEMETOLOGY METHOD 12/17/2024 10:24 AM [facility] Monocytes Relative 8.8 % LAB HEMETOLOGY METHOD 12/17/2024 10:24 AM [facility] Eosinophils Relative 1.5 % LAB HEMETOLOGY METHOD 12/17/2024 10:24 AM [facility] Basophils Relative 0.8 % LAB HEMETOLOGY METHOD 12/17/2024 10:24 AM [facility] Immature Granulocytes Relative 0.7 % LAB HEMETOLOGY METHOD 12/17/2024 10:24 AM EDT [facility] Neutrophils Absolute 6.10 1.50 - 7.00 K/mcL LAB HEMETOLOGY METHOD 12/17/2024 10:24 AM EDT [facility] Lymphocytes Absolute 2.35 1.00 - 5.00 K/mcL LAB HEMETOLOGY METHOD 12/17/2024 10:24 AM EDT [facility] Monocytes Absolute 0.84 0.20 - 1.00 K/mcL LAB HEMETOLOGY METHOD 12/17/2024 10:24 AM EDT [facility] Eosinophils Absolute 0.14 0.00 - 0.50 K/[facility] LAB HEMETOLOGY METHOD 12/17/2024 10:24 AM EDT [facility] Basophils Absolute 0.08 0.00 - 0.20 K/mcL LAB HEMETOLOGY METHOD 12/17/2024 10:24 AM EDT [facility] Immature Granulocytes Absolute 0.07(H) 0.00 - 0.03 K/mcL LAB HEMETOLOGY METHOD 12/17/2024 10:24 AM EDT [facility] Blood Venous blood specimen / Unknown Venipuncture / Unknown 12/17/2024 8:32 AM EDT 12/17/2024 9:56 AM EDT us Denver Chaudhry MD LAB BLOOD ORDERABLES Final Resu lt [facility] [address] [place] [address], * (ABNORMAL) Basic metabolic panel (12/17/2024 8:32 AM EDT) Sodium 137 133 - 145 mmol/L LAB CHEMISTRY METHOD 12/17/2024 10:48 AM EDT [facility] Potassium 4.3 3.5 - 5.5 mmol/L LAB CHEMISTRY METHOD 12/17/2024 10:48 AM [facility] Chloride 104 96 - 110 mmol/L LAB CHEMISTRY METHOD 12/17/2024 10:48 AM [facility] CO2 26 21 - 32 mmol/L LAB CHEMISTRY METHOD 12/17/2024 10:48 AM [facility] Anion Gap 7 3 - 11 LAB CHEMISTRY METHOD 12/17/2024 10:48 AM [facility] Glucose 102(H) 70 - 100 mg/dL LAB CHEMISTRY METHOD 12/17/2024 10:48 AM [facility] BUN 21 5 - 25 mg/dL LAB CHEMISTRY METHOD 12/17/2024 10:48 AM [facility] Creatinine 0.65 0.50 - 1.10 mg/dL LAB CHEMISTRY METHOD 12/17/2024 10:48 AM [facility] LAB eGFR 92 >=60 mL/min/1. 73m2 LAB CHEMISTRY METHOD 12/17/2024 10:48 AM [facility] LAB Comment:Calculation based on the Chronic Kidney Disease Epidemiology Collaboration (CKD-EPI) equation refit without adjustment for race. BUN/Creatinine Ratio 32.3 LAB CHEMISTRY METHOD 12/17/2024 10:48 AM [facility] Calcium 9.3 8.5 - 10.5 mg/dL LAB CHEMISTRY METHOD 12/17/2024 10:48 AM [facility] Blood Venous blood specimen / Unknown Venipuncture / Unknown 12/17/2024 8:32 AM EDT 12/17/2024 9:56 AM EDT us Denver Chaudhry MD LAB BLOOD ORDERABLES Final Resu lt [facility] [address] [place] [address], documented in this encounter Visit Diagnoses Diagnosis Heart failure, unspecified (CMS/HCC V24, CMS/HCC V28) Heart failure, unspecified Essential (primary) hypertension Unspecified essential hypertension Hyperlipidemia, unspecified documented in this encounter Care Teams Saxophone Teacher Relationship Specialty Start Date End Date Denver Chaudhry MD [address] [place] [address] PCP - General Internal Medicine 12/15/24 documented as of this encounter
--- OUTSIDE RECORDS SUMMARY | 2025-01-06 10:33 | XMS_ITS | Clinical Summary ---
Author Organization [address] Address [address] [place] [address] Phone Care Team Providers Care [employer] Name Role Phone Denver Chaudhry MD Primary Care Provider [phone] Encounters Date Type Department Care Team Description 01/02/2025 Lab Requisition [facility] Lab [address] [place] [phone] Randall Ac MD Unspecified atrial fibrillation (CMS/HCC V24, CMS/HCC V28) 01/01/2025 Lab Requisition [facility] Lab [address] [place] [phone] Denver Chaudhry MD Unspecified atrial fibrillation (CMS/HCC V24, CMS/HCC V28); Heart failure, unspecified (CMS/HCC V24, CMS/HCC V28); Essential (primary) hypertension; Hyperlipidemia, unspecified 01/01/2025 Lab Requisition [facility] Lab [address] [place] [phone] Denver Chaudhry MD Unspecified atrial fibrillation (CMS/HCC V24, CMS/HCC V28) 12/26/2024 Lab Requisition [facility] Lab [address] [place] [phone] Denver Chaudhry MD Unspecified atrial fibrillation (CMS/HCC V24, CMS/HCC V28); Heart failure, unspecified (CMS/HCC V24, CMS/HCC V28); Essential (primary) hypertension; Hyperlipidemia, unspecified 12/25/2024 Lab Requisition [facility] Lab [address] [place] [phone] Denver Chaudhry MD Other manager long term care (current) drug therapy 12/23/2024 Lab Requisition [facility] Lab [address] [place] [phone] Denver Chaudhry MD Unspecified atrial fibrillation (CMS/HCC V24, CMS/HCC V28); Heart failure, unspecified (CMS/HCC V24, CMS/HCC V28); Essential (primary) hypertension; Hyperlipidemia, unspecified 12/22/2024 Lab Requisition [facility] Lab [address] [place] [phone] Denver Chaudhry MD Unspecified atrial fibrillation (CMS/HCC V24, CMS/HCC V28) 12/18/2024 Lab Requisition [facility] Lab [address] [place] [phone] Denver Chaudhry MD Unspecified atrial fibrillation (CMS/HCC V24, CMS/HCC V28); Heart failure, unspecified (CMS/HCC V24, CMS/HCC V28); Hyperlipidemia, unspecified 12/17/2024 Lab Requisition [facility] Lab [address] [place] [phone] Denver Chaudhry MD Unspecified atrial fibrillation (CMS/HCC V24, CMS/HCC V28) 12/16/2024 Lab Requisition [facility] Lab [address] [place] [phone] Denver Chaudhry MD Heart failure, unspecified (CMS/HCC V24, CMS/HCC V28); Essential (primary) hypertension; Hyperlipidemia, unspecified 12/15/2024 Lab Requisition [facility] Lab [address] [place] [phone] Denver Chaudhry MD Heart failure, unspecified (CMS/HCC V24, CMS/HCC V28); Unspecified atrial fibrillation (CMS/HCC V24, CMS/HCC V28); Hyperlipidemia, unspecified; Other manager long term care (current) drug therapy from Last 3 Months [...] LEVEL Routine 12/25/2024 4:53 AM EDT Other manager long term care (current) drug therapy CBC WITH AUTO DIFFERENTIAL [...] (CMS/HCC V24, CMS/HCC V28) Hyperlipidemia, unspecified Other manager long term care (current) drug therapy DIGOXIN LEVEL Routine 12/15/2024 5:30 AM EDT Heart failure, unspecified (CMS/HCC V24, CMS/HCC V28) Unspecified atrial fibrillation (CMS/HCC V24, CMS/HCC V28) Hyperlipidemia, unspecified Other manager long term care (current) drug therapy COMPREHENSIVE METABOLIC PANEL Routine 12/15/2024 5:30 AM EDT Heart failure, unspecified (CMS/HCC V24, CMS/HCC V28) Unspecified atrial fibrillation (CMS/HCC V24, CMS/HCC V28) Hyperlipidemia, unspecified Other manager long term care (current) drug therapy PROTHROMBIN TIME WITH INR Routine 12/15/2024 5:30 AM EDT Heart failure, unspecified (CMS/HCC V24, CMS/HCC V28) Unspecified atrial fibrillation (CMS/HCC V24, CMS/HCC V28) Hyperlipidemia, unspecified Other manager long term care (current) drug therapy CBC AND DIFFERENTIAL Routine 12/15/2024 5:30 AM EDT Heart failure, unspecified (CMS/HCC V24, CMS/HCC V28) Unspecified atrial fibrillation (CMS/HCC V24, CMS/HCC V28) Hyperlipidemia, unspecified Other manager long term care (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 WBC 6.6 4.8 - 10.8 K/[facility] LAB HEMETOLOGY METHOD 01/04/2025 10:34 AM T [facility] LAB RBC 4.20 3.80 - 4.80 M/[facility] LAB HEMETOLOGY METHOD 01/04/2025 10:34 AM EDT [facility] LAB Hemoglobin 12.9 11.5 - 16.0 [...] LAB HEMETOLOGY METHOD 01/04/2025 10:34 AM EDT [facility] Eosinophils Relative 2.3 % LAB HEMETOLOGY METHOD 01/04/2025 10:34 AM EDT [facility] Basophils Relative 1.1 % LAB HEMETOLOGY METHOD 01/04/2025 10:34 AM [facility] Immature Granulocytes Relative 0.6 % LAB HEMETOLOGY METHOD 01/04/2025 10:34 AM EDT [facility] LAB Neutrophils Absolute 3.55 1.50 - 7.00 K/mcL LAB HEMETOLOGY METHOD 01/04/2025 10:34 AM EDT [facility] Lymphocytes Absolute 2.24 1.00 - 5.00 K/mcL LAB HEMETOLOGY METHOD 01/04/2025 10:34 AM [facility] Monocytes Absolute 0.57 0.20 - 1.00 K/mcL LAB HEMETOLOGY METHOD 01/04/2025 10:34 AM EDT [facility] Eosinophils Absolute 0.15 0.00 - 0.50 K/mcL LAB HEMETOLOGY METHOD 01/04/2025 10:34 AM EDT [facility] Basophils Absolute 0.07 0.00 - 0.20 K/mcL LAB HEMETOLOGY METHOD 01/04/2025 10:34 AM [facility] Immature Granulocytes Absolute 0.04(H) 0.00 - 0.03 K/mcL LAB HEMETOLOGY METHOD 01/04/2025 10:34 AM EDT [facility] LAB Blood Venous blood specimen / Unknown Venipuncture / Unknown 01/04/2025 6:00 AM EDT 01/04/2025 10:06 AM EDT us Denver Chaudhry MD LAB BLOOD ORDERABLES Final Resu lt [facility] LAB [address] [place] [address], [place] [phone] * (ABNORMAL) Prothrombin time with INR (01/04/2025 6:00 AM EDT) Only the most recent of8 resultswithin the time period is included. Pathologist [facility] Protime 26.1(H) 10.6 - 13.9 sec LAB COAGULATION METHOD 01/04/2025 10:32 AM EDT [facility] INR 2.1 LAB COAGULATION METHOD 01/04/2025 10:32 AM T [facility] Blood Venous blood specimen / Unknown Venipuncture / Unknown 01/04/2025 6:00 AM EDT 01/04/2025 10:06 AM EDT Denver Chaudhry MD LAB BLOOD ORDERABLES Final Resu lt [facility] LAB [address] [place] [address], * (ABNORMAL) Comprehensive metabolic panel (01/04/2025 6:00 AM EDT) Only the most recent of4 resultswithin the time period is included. [facility] Sodium 139 133 - 145 mmol/L [...] ORDERABLES Final Resu lt Performing Organization Address City/[facility]/ZIP Co de Phone Number [facility] LAB [address] [place] [address], [place] [phone] * Digoxin level (12/25/2024 4:53 AM EDT) Only the most recent of2 resultswithin the time period is included. Pathologist [facility] Digoxin Lvl 0.6 0.5 - 2.0 ng/mL LAB CHEMISTRY METHOD 12/25/2024 9:53 AM EDT [facility] Blood Venous blood specimen / Unknown Venipuncture / Unknown 12/25/2024 4:53 AM EDT 12/25/2024 8:39 AM EDT us Denver Chaudhry MD LAB BLOOD ORDERABLES Final Resu lt Performing Organization Address City/[facility]/ZIP Co de Phone Number [facility] [address] [place] [address], [place] [phone] * Basic metabolic panel (12/24/2024 7:11 AM EDT) Only the most recent of2 resultswithin the time period is included. Pathologist [facility] Sodium 138 133 - 145 mmol/L LAB CHEMISTRY METHOD 12/24/2024 9:06 AM EDT [facility] Potassium 4.5 3.5 - 5.5 mmol/L LAB CHEMISTRY METHOD 12/24/2024 9:06 AM EDT [facility] Chloride 107 96 - 110 mmol/L LAB CHEMISTRY METHOD 12/24/2024 9:06 AM EDT [facility] CO2 26 21 - 32 mmol/L LAB CHEMISTRY METHOD 12/24/2024 9:06 AM EDT [facility] Anion Gap 5 3 - 11 LAB CHEMISTRY METHOD 12/24/2024 9:06 AM EDT [facility] Glucose 83 70 - 100 mg/dL LAB CHEMISTRY METHOD 12/24/2024 9:06 AM EDT [facility] BUN 11 5 - 25 mg/dL LAB CHEMISTRY METHOD 12/24/2024 9:06 AM EDT [facility] Creatinine 0.55 0.50 - 1.10 mg/dL LAB CHEMISTRY METHOD 12/24/2024 9:06 AM T [facility] LAB eGFR 96 >=60 mL/min/1. 73m2 LAB CHEMISTRY METHOD 12/24/2024 9:06 AM EDT [facility] LAB Comment:Calculation based on the Chronic Kidney Disease Epidemiology Collaboration (CKD-EPI) equation refit without adjustment for race. BUN/Creatinine Ratio 20.0 LAB CHEMISTRY METHOD 12/24/2024 9:06 AM T [facility] Calcium 9.2 8.5 - 10.5 mg/dL LAB CHEMISTRY METHOD 12/24/2024 9:06 AM T [facility] LAB Blood Venous blood specimen / Unknown Venipuncture / Unknown 12/24/2024 7:11 AM EDT 12/24/2024 8:19 AM EDT Denver Chaudhry MD LAB BLOOD ORDERABLES Final Resu lt [facility] LAB [address] [place] [address], from Last 3 Months Insurance Care Teams [employer] Relationship Specialty Start Date End Date Denver Chaudhry MD [address] [place] [address] PCP - General Internal Medicine 12/15/24
--- OUTSIDE RECORDS SUMMARY | 2025-01-06 10:33 | XMS_ITS | Encounter Summary ---
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 Social History Tobacco Use [...] LAB CHEMISTRY METHOD 12/25/2024 9:53 AM EDT [facility] ([facility]) [facility] LAB Blood Venous blood specimen / Unknown Venipuncture / Unknown 12/25/2024 4:53 AM EDT 12/25/2024 8:39 AM EDT us Denver Chaudhry MD LAB BLOOD ORDERABLES Final [facility] LAB [address] [place] [address], documented in this encounter Visit Diagnoses Diagnosis 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
== END 2025-01-05 09:16 | disposition home or self-care (01) ==
LOC: HO.HOSX 09:15
PROVIDERS: Visit Provider Orthopaedic Surgery
DX: S52.501D Unspecified fracture of the lower end of right radius, subsequent encounter for closed fracture with routine healing (principal); S52.611D Displaced fracture of right ulna styloid process, subsequent encounter for closed fracture with routine healing; I48.11 Longstanding persistent atrial fibrillation; Z79.01 Long term (current) use of anticoagulants; X58.XXXD Exposure to other specified factors, subsequent encounter
CPT/HCPCS: 73110; 99212

== ENCOUNTER 2025-01-05 14:09 | Outpatient (AMB) | payer MEDICARE, SELFPAY ==
--- NOTE | 2025-01-05 15:11 | A.OFFVIS_ITS ---
Intake Visit Reasons: 3 week f/u Right Distal Radius Fracture Intake Note: Meli 74 yr old presents today for her follow up visit for her Right distal radius & right ulnar styloid avulsion fracture, from a fall, DOI: 12/10/24 and reduced in ED: 12/11/24. At her last visit with Dr Marshall, patient was placed in a short arm cast. Patient was made aware she is to lift nothing heavier than 2 lbs, keep cast clean and dry. Xrays updated in office with cast on. Allergies paroxetine (From PAXIL) Allergy (Mild, Verified 01/05/25 15:27) ALOPECIA HPI HPI 3 week f/u Right Distal Radius Fracture: Details: Catie is a 74 year old right hand dominant woman who presents for a right distal radius & ulnar styloid avulsion fracture, S/P fall, DOI: 12/10/24. She is seen today with her friend. Per patient preference we went ahead and are treating this non operatively. She was in a short-arm cast. She says that she has been very careful with this and really has not been doing anything with her right hand. Her friend says that they have a forearm bearing walker for her at the senior living. She is hoping to be allowed to go home from the senior living soon. She says she is doing okay and does not have any pain. She says she tripped and fell while trying to close her door & blinds at home before bed. She was seen in the ED on 12/11/24 where her fracture was reduced & splinted. She lives alone and currently resides in [facility] since her injury. She normally ambulates with a walker, and is currently using a forearm bearing walker. She is on Warfarin for Afib. 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 Sister No problems noted. Son No problems noted. Social History Housing: Apartment Alcohol intake: never Patient Tobacco Use Status: Former Tobacco user Tobacco use type: Cigarette e-Cigarette/Vaping Use: Never Used Second Hand Smoke Exposure: No service: No Current occupational status: retired Cognitive needs: Yes Hearing needs: No Vision needs: No Physical Exam Extrem Other: Evaluation of Right Upper Extremity: The patient is alert, oriented, and in no acute distress Neuro: Median, Ulnar, Radial nerves motor and sensory intact and sensation is normal to the tips of all digits Vascular: Cap refill brisk ROM: She can weakly make a fist and extend all her digits Her fracture was completely nontender today in clinic. She can make a fist with encouragement and actively extend all of her digits. Mild clinical malalignment of the wrist. Radiographs: 3 views of the right wrist were taken and viewed by me today in clinic. They show a transverse extra-articular distal radius fracture loss of inclination and ~15 degrees apex volar angulation, worsened from prior, with some evidence of interval bony healing. She also has an ulnar styloid avulsion fracture. Assessment & Plan Assessment & Plan (1) Fracture of right distal radius: Code(s): S52.501A - Unspecified fracture of the lower end of right radius, initial encounter for closed fracture Category: Medical (2) Fracture of right ulnar styloid: Code(s): S52.611A - Displaced fracture of right ulna styloid process, initial encounter for closed fracture Category: Medical (3) Atrial fibrillation: Code(s): I48.91 - Unspecified atrial fibrillation Category: Medical Qualifiers: Atrial fibrillation type: longstanding persistent Qualified Code(s): I48.11 - Longstanding persistent atrial fibrillation (4) Current use of senior living anticoagulation: Code(s): Z79.01 - halfway (current) use of anticoagulants Category: Medical Plan Assessment & Plan: 1. Right distal radius fracture, transverse From a fall, DOI: 12/10/24 Reduced in ED: 12/11/24 2. Right ulnar styloid avulsion fracture, S/P fall, DOI: 12/10/24 She is seen today with her friend, and she is currently residing in [facility]. I educated her about this condition Her injury has been managed conservatively in a cast as the patient was not interested in surgery. She is also on Warfarin there would have been a further delay before proceeding with surgery. I explained that she would likely have a bit of a bump but that she would likely do well in a cast. She was fitted for a velcro wrist splint, to be worn like a cast except for showering, for the next 4 weeks I discussed activity modifications, she is to lift nothing heavier than a cellphone for the next 4 weeks. They should also avoid any heavy impact activities, falls, or sports activities for the next 6 weeks She will perform gentle finger ROM exercises at home I recommend the continued use of a forearm-bearing walker for ambulation. She is unable to weight bear with her right wrist or hand for at least the next 4-5 weeks. She will follow up in 4 weeks, with X-rays, 3V R wrist, OOP Scribed for Anitha Marshall MD by Bernard Ashby, medical detail representative, on 01/05/25 at 3:35 PM, EST. Orders: Orders XR wrist RT min 3V Today M25.531 - Pain in right wrist Coding Level of Care Code Global (77828) Diagnoses Fracture of right distal radius S52.501A Fracture of right ulnar styloid S52.611A Longstanding persistent atrial fibrillation I48.11 Atrial fibrillation type: longstanding persistent Current use of senior living anticoagulation Z79.01
--- OUTSIDE RECORDS SUMMARY | 2025-01-05 18:32 | XMS_ITS | Encounter Summary ---
Author Organization [employer] Address [address] [place] [address] Care Team Providers Care Community Music Therapist Name Role Phone Denver Chaudhry MD Primary Care Provider [phone] Encounter Details Date Type Department Care Team (Late st Contact Info) Description 12/16/2024 Lab Requisition [facility] - Main Lab [address] [facility] [place] [address] Denver Chaudhry MD [address] [place] [phone] Heart failure, unspecified (CMS/HCC V24, CMS/HCC V28); Essential (primary) hypertension; Hyperlipidemia, unspecified Social History Tobacco Use Types Packs/Day Years Used Date Smoking Tobacco: Never Assessed Comments Unknown Sex and Gender Information Value Date Recorded Sex Assigned at Not on file Legal Sex Female 9:16 AM EDT Gender Identity Not on file Sexual Orientation Not on file documented as of this encounter Plan of Treatment Not on file documented as of this encounter Procedures Procedure Name Priority Date/Time Associated Diagnosis Comments CBC WITH AUTO DIFFERENTIAL Routine 12/17/2024 8:32 AM EDT Heart failure, unspecified (CMS/HCC V24, CMS/HCC V28) Essential (primary) hypertension Hyperlipidemia, unspecified PROTHROMBIN TIME WITH INR Routine 12/17/2024 8:32 AM EDT Heart failure, unspecified (CMS/HCC V24, CMS/HCC V28) Essential (primary) hypertension Hyperlipidemia, unspecified CBC AND DIFFERENTIAL Routine 12/17/2024 8:32 AM EDT Heart failure, unspecified (CMS/HCC V24, CMS/HCC V28) Essential (primary) hypertension Hyperlipidemia, unspecified BASIC METABOLIC PANEL Routine 12/17/2024 8:32 AM EDT Heart failure, unspecified ([facility] V24, [facility] V28) Essential (primary) hypertension Hyperlipidemia, unspecified documented in this encounter Results * (ABNORMAL) Prothrombin time with INR (12/17/2024 8:32 AM EDT) Pathologist [facility] Protime 34.1(H) 10.6 - 13.9 sec LAB COAGULATION METHOD 12/17/2024 10:[address] [facility] INR 2.8 LAB COAGULATION METHOD 12/17/2024 10:[address] [facility] Blood Venous blood specimen / Unknown Venipuncture / Unknown 12/17/2024 8:32 AM EDT 12/17/2024 9:56 AM EDT Denver Chaudhry MD LAB BLOOD ORDERABLES Final Resu lt [facility] [address] [place] [address], * (ABNORMAL) CBC auto differential (12/17/2024 8:32 AM EDT) [facility] WBC 9.6 4.8 - 10.8 K/mcL LAB HEMETOLOGY METHOD 12/17/2024 10:[address] [facility] RBC 4.30 3.80 - 4.80 M/[facility] LAB HEMETOLOGY METHOD 12/17/2024 10:[address] [facility] Hemoglobin 13.1 11.5 - 16.0 g/dL LAB HEMETOLOGY METHOD 12/17/2024 10:[address] [facility] Hematocrit 40.4 35.0 - 47.0 % LAB HEMETOLOGY METHOD 12/17/2024 10:[address] [facility] MCV 93.5 79.0 - 98.0 FL LAB HEMETOLOGY METHOD 12/17/2024 10:24 AM [facility] MCH 30.3 27.0 - 32.0 pcg LAB HEMETOLOGY METHOD 12/17/2024 10:24 AM [facility] MCHC 32.4 32.0 - 37.0 g/dL LAB HEMETOLOGY METHOD 12/17/2024 10:24 AM [facility] RDW 14.4 11.0 - 15.0 % LAB HEMETOLOGY METHOD 12/17/2024 10:24 AM [facility] Platelets 334 130 - 400 K/mcL LAB HEMETOLOGY METHOD 12/17/2024 10:24 AM [facility] MPV 10.1 7.0 - 11.0 FL LAB HEMETOLOGY METHOD 12/17/2024 10:24 AM [facility] NRBC 0.0 <1.0 % LAB HEMETOLOGY METHOD 12/17/2024 10:24 AM [facility] NRBC Absolute 0.00 <0.10 K/mcL LAB HEMETOLOGY METHOD 12/17/2024 10:24 AM [facility] Neutrophils Relative 63.7 % LAB HEMETOLOGY METHOD 12/17/2024 10:24 AM [facility] Lymphocytes Relative 24.5 % LAB HEMETOLOGY METHOD 12/17/2024 10:24 AM [facility] Monocytes Relative 8.8 % LAB HEMETOLOGY METHOD 12/17/2024 10:24 AM [facility] Eosinophils Relative 1.5 % LAB HEMETOLOGY METHOD 12/17/2024 10:24 AM [facility] Basophils Relative 0.8 % LAB HEMETOLOGY METHOD 12/17/2024 10:24 AM [facility] Immature Granulocytes Relative 0.7 % LAB HEMETOLOGY METHOD 12/17/2024 10:[address] [facility] Neutrophils Absolute 6.10 1.50 - 7.00 K/mcL LAB HEMETOLOGY METHOD 12/17/2024 10:[address] [facility] Lymphocytes Absolute 2.35 1.00 - 5.00 K/mcL LAB HEMETOLOGY METHOD 12/17/2024 10:[address] [facility] Monocytes Absolute 0.84 0.20 - 1.00 K/mcL LAB HEMETOLOGY METHOD 12/17/2024 10:[address] [facility] Eosinophils Absolute 0.14 0.00 - 0.50 K/[facility] LAB HEMETOLOGY METHOD 12/17/2024 10:[address] [facility] Basophils Absolute 0.08 0.00 - 0.20 K/mcL LAB HEMETOLOGY METHOD 12/17/2024 10:[address] [facility] Immature Granulocytes Absolute 0.07(H) 0.00 - 0.03 K/mcL LAB HEMETOLOGY METHOD 12/17/2024 10:[address] [facility] Blood Venous blood specimen / Unknown Venipuncture / Unknown 12/17/2024 8:32 AM EDT 12/17/2024 9:56 AM EDT us Denver Chaudhry MD LAB BLOOD ORDERABLES Final Resu lt [facility] [address] [place] [address], * (ABNORMAL) Basic metabolic panel (12/17/2024 8:32 AM EDT) Sodium 137 133 - 145 mmol/L LAB CHEMISTRY METHOD 12/17/2024 10:[address] [facility] Potassium 4.3 3.5 - 5.5 mmol/L LAB CHEMISTRY METHOD 12/17/2024 10:48 AM [facility] Chloride 104 96 - 110 mmol/L LAB CHEMISTRY METHOD 12/17/2024 10:48 AM [facility] CO2 26 21 - 32 mmol/L LAB CHEMISTRY METHOD 12/17/2024 10:48 AM [facility] Anion Gap 7 3 - 11 LAB CHEMISTRY METHOD 12/17/2024 10:48 AM [facility] Glucose 102(H) 70 - 100 mg/dL LAB CHEMISTRY METHOD 12/17/2024 10:48 AM [facility] BUN 21 5 - 25 mg/dL LAB CHEMISTRY METHOD 12/17/2024 10:48 AM [facility] Creatinine 0.65 0.50 - 1.10 mg/dL LAB CHEMISTRY METHOD 12/17/2024 10:48 AM [facility] eGFR 92 >=60 mL/min/1. 73m2 LAB CHEMISTRY METHOD 12/17/2024 10:48 AM [facility] Comment:Calculation based on the Chronic Kidney Disease Epidemiology Collaboration (CKD-EPI) equation refit without adjustment for race. BUN/Creatinine Ratio 32.3 LAB CHEMISTRY METHOD 12/17/2024 10:48 AM [facility] Calcium 9.3 8.5 - 10.5 mg/dL LAB CHEMISTRY METHOD 12/17/2024 10:48 AM [facility] Blood Venous blood specimen / Unknown Venipuncture / Unknown 12/17/2024 8:32 AM EDT 12/17/2024 9:56 AM EDT us Denver Chaudhry MD LAB BLOOD ORDERABLES Final Resu lt [facility] [address] [place] [address], documented in this encounter Visit Diagnoses Diagnosis Heart failure, unspecified (CMS/HCC V24, CMS/HCC V28) Heart failure, unspecified Essential (primary) hypertension Unspecified essential hypertension Hyperlipidemia, unspecified documented in this encounter Care Teams Community Music Therapist Relationship Specialty Start Date End Date Denver Chaudhry MD [address] [place] [address] PCP - General Internal Medicine 12/15/24 documented as of this encounter
--- OUTSIDE RECORDS SUMMARY | 2025-01-05 18:32 | XMS_ITS | Encounter Summary ---
Author Organization [employer] Address [address] [place] [address] Care Team Providers Care Shift Superintendent Caustic Cresylate Name Role Phone Denver Chaudhry MD Primary Care Provider [phone] Encounter Details Date Type Department Care Team (Late st Contact Info) Description 12/25/2024 Lab Requisition [facility] - Main Lab [address] [facility] [employer] [place] [address] Denver Chaudhry MD [address] [place] [phone] Other technician terminal and repeater (current) drug therapy Social History Tobacco Use Types Packs/Day Years [...] Procedure Name Priority Date/Time Associated Diagnosis Comments DIGOXIN LEVEL Routine 12/25/2024 4:53 AM EDT Other group home (current) drug therapy documented in this encounter Results * Digoxin level (12/25/2024 4:53 AM EDT) Digoxin Lvl 0.6 0.5 - 2.0 ng/mL LAB CHEMISTRY METHOD 12/25/2024 9:53 AM EDT [facility] Blood Venous blood specimen / Unknown Venipuncture / Unknown 12/25/2024 4:53 AM EDT 12/25/2024 8:39 AM EDT us Denver Chaudhry MD LAB BLOOD ORDERABLES Final Resu lt [facility] [address] [place] [address], documented in this encounter Visit Diagnoses Diagnosis Other technician terminal and repeater (current) drug therapy documented in this encounter Care Teams Shift Superintendent Caustic Cresylate Relationship Specialty Start Date End Date Denver Chaudhry MD [address] [place] [address] PCP - General Internal Medicine 12/15/24 documented as of this encounter
--- OUTSIDE RECORDS SUMMARY | 2025-01-05 18:32 | XMS_ITS | Encounter Summary ---
Author Organization [employer] Address [address] [place] [address] Care Team Providers Care Bridge Painter Helper Name Role Phone Denver Chaudhry MD Primary Care Provider [phone] Encounter Details Date Type Department Care Team (Late st Contact Info) Description 12/17/2024 Lab Requisition [facility] - Main Lab [address] [place] [address] Denver Chaudhry MD [address] [place] [address] Unspecified atrial fibrillation (CMS/HCC V24, CMS/HCC V28) Social History Tobacco Use Types Packs/Day Years Used Date Smoking Tobacco: Never Assessed Comments Unknown Sex and Gender Information Value Date Recorded Sex Assigned at Not on file Legal Sex Female 9:16 AM EDT Gender Identity Not on file Sexual Orientation Not on file documented as of this encounter Plan of Treatment Not on file documented as of this encounter Visit Diagnoses Diagnosis Unspecified atrial fibrillation (CMS/HCC V24, CMS/HCC V28) documented in this encounter Care Teams Bridge Painter Helper Relationship Specialty Start Date End Date Denver Chaudhry MD [address] [place] [address] PCP - General Internal Medicine 12/15/24 documented as of this encounter
--- OUTSIDE RECORDS SUMMARY | 2025-01-05 18:32 | XMS_ITS | Encounter Summary ---
Author Organization [employer] Address [address] [place] [address] Care Team Providers Care Assistant Professor Of Sociology Name Role Phone Denver Chaudhry MD Primary Care Provider [phone] Encounter Details Date Type Department Care Team (Late st Contact Info) Description 12/15/2024 Lab Requisition [facility] - Main Lab [address] [facility] [place] [address] Denver Chaudhry MD [address] [place] [phone] Heart failure, unspecified (CMS/HCC V24, CMS/HCC V28); Unspecified atrial fibrillation (CMS/HCC V24, CMS/HCC V28); Hyperlipidemia, unspecified; Other assisted (current) drug therapy Social History Tobacco Use [...] Diagnosis Comments CBC WITH AUTO DIFFERENTIAL Routine 12/15/2024 5:30 AM EDT Heart failure, unspecified (CMS/HCC V24, CMS/HCC V28) Unspecified atrial fibrillation (CMS/HCC V24, CMS/HCC V28) Hyperlipidemia, unspecified 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 PROTHROMBIN TIME WITH INR Routine 12/15/2024 5:30 AM EDT Heart failure, unspecified (CMS/HCC V24, CMS/HCC V28) Unspecified atrial fibrillation (CMS/HCC V24, CMS/HCC V28) Hyperlipidemia, unspecified Other assisted (current) drug therapy CBC AND DIFFERENTIAL Routine 12/15/2024 5:30 AM EDT Heart failure, unspecified (CMS/HCC V24, CMS/HCC V28) Unspecified atrial fibrillation (CMS/HCC V24, CMS/HCC V28) Hyperlipidemia, unspecified Other assisted (current) drug therapy DIGOXIN LEVEL Routine 12/15/2024 5:30 AM EDT Heart failure, unspecified (CMS/HCC V24, CMS/HCC V28) Unspecified atrial fibrillation (CMS/HCC V24, CMS/HCC V28) Hyperlipidemia, unspecified 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 COMPREHENSIVE METABOLIC PANEL Routine 12/15/2024 5:30 AM EDT Heart failure, unspecified (CMS/HCC V24, CMS/HCC V28) Unspecified atrial fibrillation (CMS/HCC V24, CMS/HCC V28) Hyperlipidemia, unspecified 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 documented in this encounter Results * (ABNORMAL) CBC auto differential (12/15/2024 5:30 AM EDT) [facility] WBC 11.7(H) 4.8 - 10.8 K/mcL LAB HEMETOLOGY METHOD 12/15/2024 10:21 AM [facility] LAB RBC 4.40 3.80 - 4.80 M/mcL LAB HEMETOLOGY METHOD 12/15/2024 10:21 AM [facility] LAB Hemoglobin 13.3 11.5 - 16.0 g/dL LAB HEMETOLOGY METHOD 12/15/2024 10:21 AM [facility] LAB Hematocrit 41.1 35.0 - 47.0 % LAB HEMETOLOGY METHOD 12/15/2024 10:21 AM [facility] LAB MCV 93.4 79.0 - 98.0 FL LAB HEMETOLOGY METHOD 12/15/2024 10:21 AM [facility] LAB MCH 30.2 27.0 - 32.0 pcg LAB HEMETOLOGY METHOD 12/15/2024 10:21 AM [facility] LAB MCHC 32.4 32.0 - 37.0 g/dL LAB HEMETOLOGY METHOD 12/15/2024 10:21 AM [facility] LAB RDW 14.3 11.0 - 15.0 % LAB HEMETOLOGY METHOD 12/15/2024 10:21 AM [facility] LAB Platelets 296 130 - 400 K/mcL LAB HEMETOLOGY METHOD 12/15/2024 10:21 AM [facility] LAB MPV 10.4 7.0 - 11.0 FL LAB HEMETOLOGY METHOD 12/15/2024 10:21 AM [facility] LAB NRBC 0.0 <1.0 % LAB HEMETOLOGY METHOD 12/15/2024 10:21 AM [facility] LAB NRBC Absolute 0.00 <0.10 K/mcL LAB HEMETOLOGY METHOD 12/15/2024 10:21 AM [facility] LAB Neutrophils Relative 70.8 % LAB HEMETOLOGY METHOD 12/15/2024 10:21 AM [facility] LAB Lymphocytes Relative 16.9 % LAB HEMETOLOGY METHOD 12/15/2024 10:21 AM [facility] Monocytes Relative 10.9 % LAB HEMETOLOGY METHOD 12/15/2024 10:21 AM [facility] LAB Eosinophils Relative 0.3 % LAB HEMETOLOGY METHOD 12/15/2024 10:21 AM [facility] Basophils Relative 0.4 % LAB HEMETOLOGY METHOD 12/15/2024 10:21 AM [facility] LAB Immature Granulocytes Relative 0.7 % LAB HEMETOLOGY METHOD 12/15/2024 10:21 AM [facility] LAB Neutrophils Absolute 8.25(H) 1.50 - 7.00 K/mcL LAB HEMETOLOGY METHOD 12/15/2024 10:21 AM EDT [facility] LAB Lymphocytes Absolute 1.97 1.00 - 5.00 K/[facility] LAB HEMETOLOGY METHOD 12/15/2024 10:21 AM EDT [facility] LAB Monocytes Absolute 1.27(H) 0.20 - 1.00 K/mcL LAB HEMETOLOGY METHOD 12/15/2024 10:21 AM EDT [facility] LAB Eosinophils Absolute 0.03 0.00 - 0.50 K/[facility] LAB HEMETOLOGY METHOD 12/15/2024 10:21 AM EDT [facility] LAB Basophils Absolute 0.05 0.00 - 0.20 K/[facility] LAB HEMETOLOGY METHOD 12/15/2024 10:21 AM EDT [facility] LAB Immature Granulocytes Absolute 0.08(H) 0.00 - 0.03 K/[facility] LAB HEMETOLOGY METHOD 12/15/2024 10:21 AM EDT [facility] LAB Blood Venous blood specimen / Unknown Venipuncture / Unknown 12/15/2024 5:30 AM EDT 12/15/2024 9:22 AM EDT us Denver Chaudhry MD LAB BLOOD ORDERABLES Final Resu lt [facility] LAB [address] [place] [address], * Digoxin level (12/15/2024 5:30 AM EDT) Digoxin Lvl 0.8 0.5 - 2.0 ng/mL LAB CHEMISTRY METHOD 12/15/2024 11:02 AM EDT [facility] LAB Blood Venous blood specimen / Unknown Venipuncture / Unknown 12/15/2024 5:30 AM EDT 12/15/2024 9:22 AM EDT us Denver Chaudhry MD LAB BLOOD ORDERABLES Final Resu lt [facility] [address] [place] [address], * (ABNORMAL) Comprehensive metabolic panel (12/15/2024 5:30 AM EDT) Sodium 136 133 - 145 mmol/L LAB CHEMISTRY METHOD 12/15/2024 11:02 AM [facility] LAB Potassium 4.1 3.5 - 5.5 mmol/L LAB CHEMISTRY METHOD 12/15/2024 11:02 AM [facility] LAB Chloride 101 96 - 110 mmol/L LAB CHEMISTRY METHOD 12/15/2024 11:02 AM [facility] LAB CO2 26 21 - 32 mmol/L LAB CHEMISTRY METHOD 12/15/2024 11:02 AM [facility] LAB Anion Gap 9 3 - 11 LAB CHEMISTRY METHOD 12/15/2024 11:02 AM [facility] LAB Glucose 89 70 - 100 mg/dL LAB CHEMISTRY METHOD 12/15/2024 11:02 AM [facility] BUN 11 5 - 25 mg/dL LAB CHEMISTRY METHOD 12/15/2024 11:02 AM [facility] LAB Creatinine 0.58 0.50 - 1.10 mg/dL LAB CHEMISTRY METHOD 12/15/2024 11:02 AM [facility] LAB eGFR 95 >=60 mL/min/1. 73m2 LAB CHEMISTRY METHOD 12/15/2024 11:02 AM [facility] LAB Comment:Calculation based on the Chronic Kidney Disease Epidemiology Collaboration (CKD-EPI) equation refit without adjustment for race. BUN/Creatinine Ratio 19.0 LAB CHEMISTRY METHOD 12/15/2024 11:02 AM [facility] LAB Calcium 9.3 8.5 - 10.5 mg/dL LAB CHEMISTRY METHOD 12/15/2024 11:02 AM [facility] LAB AST (SGOT) 54(H) 10 - 42 unit/L LAB CHEMISTRY METHOD 12/15/2024 11:02 AM EDT [facility] ALT (SGPT) 50 10 - 60 unit/L LAB CHEMISTRY METHOD 12/15/2024 11:02 AM EDT [facility] LAB Alkaline Phosphatase 84 42 - 121 unit/L LAB CHEMISTRY METHOD 12/15/2024 11:02 AM EDT [facility] Total Protein 6.6 6.0 - 8.0 g/dL LAB CHEMISTRY METHOD 12/15/2024 11:02 AM EDT [facility] Albumin 3.1(L) 3.2 - 5.0 g/dL LAB CHEMISTRY METHOD [facility] Total Bilirubin 1.1 0.0 - 1.4 mg/dL LAB CHEMISTRY METHOD 12/15/2024 11:02 AM EDT [facility] LAB Blood Venous blood specimen / Unknown Venipuncture / Unknown 12/15/2024 5:30 AM EDT 12/15/2024 9:22 AM EDT us Denver Chaudhry MD LAB BLOOD ORDERABLES Final Resu lt [facility] [address] [place] [address], * (ABNORMAL) Prothrombin time with INR (12/15/2024 5:30 AM EDT) Protime 23.7(H) 10.6 - 13.9 sec LAB COAGULATION METHOD 12/15/2024 9:48 AM EDT [facility] LAB INR 1.9 LAB COAGULATION METHOD 12/15/2024 9:48 AM EDT [facility] LAB Blood Venous blood specimen / Unknown Venipuncture / Unknown 12/15/2024 5:30 AM EDT 12/15/2024 9:22 AM EDT us Denver Chaudhry MD LAB BLOOD ORDERABLES Final Resu lt [facility] ([facility] [address] [place] [address], documented in this encounter Visit Diagnoses Diagnosis Heart failure, unspecified (CMS/HCC V24, CMS/HCC V28) Heart failure, unspecified Unspecified atrial fibrillation (CMS/HCC V24, CMS/HCC V28) Hyperlipidemia, unspecified Other assisted (current) drug therapy documented in this encounter Care Teams Assistant Professor Of Sociology Relationship Specialty Start Date End Date Denver Chaudhry MD [address] [place] [address] PCP - General Internal Medicine 12/15/24 documented as of this encounter
--- OUTSIDE RECORDS SUMMARY | 2025-01-05 18:32 | XMS_ITS | Encounter Summary ---
Author Organization [employer] Address [address] [place] [address] Care Team Providers Care Sales Engineer Name Role Phone Denver Chaudhry MD Primary Care Provider [phone] Encounter Details Date Type Department Care Team (Late st Contact Info) Description 12/22/2024 Lab Requisition [facility] - Main Lab [address] [facility] [place] [address] Denver Chaudhry MD [address] [place] [phone] Unspecified atrial fibrillation (CMS/HCC V24, CMS/HCC [...] Procedure Name Priority Date/Time Associated Diagnosis Comments PROTHROMBIN TIME WITH INR Routine 12/22/2024 5:11 AM EDT Unspecified atrial fibrillation (CMS/HCC V24, CMS/HCC V28) documented in this encounter Results * (ABNORMAL) Prothrombin time with INR (12/22/2024 5:11 AM EDT) Protime 31.3(H) 10.6 - 13.9 sec LAB COAGULATION METHOD 12/22/2024 11:46 AM EDT [facility] INR 2.5 LAB COAGULATION METHOD 12/22/2024 11:46 AM EDT [facility] LAB Blood Venous blood specimen / Unknown Venipuncture / Unknown 12/22/2024 5:11 AM EDT 12/22/2024 10:45 AM EDT Denver Chaudhry MD LAB BLOOD ORDERABLES [facility] [address] [place] [address], documented in this encounter Visit Diagnoses Diagnosis Unspecified atrial fibrillation (CMS/HCC V24, CMS/HCC V28) documented in this encounter Care Teams Sales Engineer Relationship Specialty Start Date End Date Denver Chaudhry MD [address] [place] [address] PCP - General Internal Medicine 12/15/24 documented as of this encounter
--- OUTSIDE RECORDS SUMMARY | 2025-01-05 18:32 | XMS_ITS | Encounter Summary ---
Author Organization [employer] Address [address] [place] [address] Care Team Providers Care Certified Pharmacist Assistant Name Role Phone Denver Chaudhry MD Primary Care Provider [phone] Encounter Details Date Type Department Care Team (Late st Contact Info) Description 12/23/2024 Lab Requisition [facility] - Main Lab [address] [facility] [place] [address] Denver Chaudhry MD [address] [place] [address] Unspecified atrial fibrillation (CMS/HCC V24, CMS/HCC V28); Heart failure, unspecified (CMS/HCC V24, CMS/HCC V28); [...] Diagnosis Comments CBC WITH AUTO DIFFERENTIAL Routine 12/24/2024 7:11 AM EDT Unspecified atrial fibrillation (CMS/HCC V24, CMS/HCC V28) Heart failure, unspecified (CMS/HCC V24, CMS/HCC V28) Essential (primary) hypertension Hyperlipidemia, unspecified PROTHROMBIN TIME WITH INR Routine 12/24/2024 7:11 AM EDT Unspecified atrial fibrillation (CMS/HCC V24, CMS/HCC V28) Heart failure, unspecified (CMS/HCC V24, CMS/HCC V28) Essential (primary) hypertension Hyperlipidemia, unspecified CBC AND DIFFERENTIAL Routine 12/24/2024 7:11 AM EDT Unspecified atrial fibrillation (CMS/HCC V24, CMS/HCC V28) Heart failure, unspecified (CMS/HCC V24, CMS/HCC V28) Essential (primary) hypertension Hyperlipidemia, unspecified BASIC METABOLIC PANEL Routine 12/24/2024 7:11 AM EDT Unspecified atrial fibrillation (CMS/HCC V24, CMS/HCC V28) Heart failure, unspecified (CMS/HCC V24, CMS/HCC V28) Essential (primary) hypertension Hyperlipidemia, unspecified documented in this encounter Results * (ABNORMAL) CBC auto differential (12/24/2024 7:11 AM EDT) [facility] WBC 9.0 4.8 - 10.8 K/mcL LAB HEMETOLOGY METHOD 12/24/2024 8:45 AM [facility] RBC 4.20 3.80 - 4.80 M/mcL LAB HEMETOLOGY METHOD 12/24[facility]24 [facility] Hemoglobin 13.0 11.5 - 16.0 g/dL LAB HEMETOLOGY METHOD 12/24/2024 8:45 AM [facility] LAB Hematocrit 40.2 35.0 - 47.0 % LAB HEMETOLOGY METHOD 12/24/2024 8:45 AM [facility] LAB MCV 95.7 79.0 - 98.0 FL LAB HEMETOLOGY METHOD 12/24/2024 8:45 AM [facility] LAB MCH 31.0 27.0 - 32.0 pcg LAB HEMETOLOGY METHOD 12/24/2024 8:45 AM [facility] LAB MCHC 32.3 32.0 - 37.0 g/dL LAB HEMETOLOGY METHOD 12/24/2024 8:45 AM [facility] LAB RDW 14.9 11.0 - 15.0 % LAB HEMETOLOGY METHOD 12/24/2024 8:45 AM EDT [facility] LAB Platelets 351 130 - 400 K/mcL LAB HEMETOLOGY METHOD 12/24/2024 8:45 AM [facility] MPV 9.6 7.0 - 11.0 FL LAB HEMETOLOGY METHOD 12/24/2024 8:45 AM [facility] NRBC 0.0 <1.0 % LAB HEMETOLOGY METHOD 12/24/2024 8:45 AM [facility] LAB NRBC Absolute 0.00 <0.10 K/mcL LAB HEMETOLOGY METHOD 12/24/2024 8:45 AM [facility] Neutrophils Relative 67.4 % LAB HEMETOLOGY METHOD 12/24/2024 8:45 AM [facility] LAB Lymphocytes Relative 22.8 % LAB HEMETOLOGY METHOD 12/24/2024 8:45 AM [facility] Monocytes Relative 6.3 % LAB HEMETOLOGY METHOD 12/24/2024 8:45 AM [facility] Eosinophils Relative 1.4 % LAB HEMETOLOGY METHOD 12/24/2024 8:45 AM [facility] Basophils Relative 0.8 % LAB HEMETOLOGY METHOD 12/24/2024 8:45 AM [facility] LAB Immature Granulocytes Relative 1.3 % LAB HEMETOLOGY METHOD 12/24/2024 8:45 AM [facility] LAB Neutrophils Absolute 6.07 1.50 - 7.00 K/mcL LAB HEMETOLOGY METHOD 12/24/2024 8:45 AM [facility] Lymphocytes Absolute 2.05 1.00 - 5.00 K/mcL LAB HEMETOLOGY METHOD 12/24/2024 8:45 AM [facility] LAB Monocytes Absolute 0.57 0.20 - 1.00 K/mcL LAB HEMETOLOGY METHOD 12/24/2024 8:45 AM EDT [facility] LAB Eosinophils Absolute 0.13 0.00 - 0.50 K/mcL LAB HEMETOLOGY METHOD 12/24/2024 8:45 AM EDT [facility] Basophils Absolute 0.07 0.00 - 0.20 K/mcL LAB HEMETOLOGY METHOD 12/24/2024 8:45 AM EDT [facility] LAB Immature Granulocytes Absolute 0.12(H) 0.00 - 0.03 K/mcL LAB HEMETOLOGY METHOD 12/24/2024 8:45 AM EDT [facility] Blood Venous blood specimen / Unknown Venipuncture / Unknown 12/24/2024 7:11 AM EDT 12/24/2024 8:19 AM EDT us Denver Chaudhry MD LAB BLOOD ORDERABLES Final Resu lt [facility] [address] [place] [address], [place] [phone] * Basic metabolic panel (12/24/2024 7:11 AM EDT) Sodium 138 133 - 145 mmol/L LAB CHEMISTRY METHOD 12/24/2024 9:06 AM [facility] Potassium 4.5 3.5 - 5.5 mmol/L LAB CHEMISTRY METHOD 12/24/2024 9:06 AM [facility] Chloride 107 96 - 110 mmol/L LAB CHEMISTRY METHOD 12/24/2024 9:06 AM [facility] CO2 26 21 - 32 mmol/L LAB CHEMISTRY METHOD 12/24/2024 9:06 AM [facility] Anion Gap 5 3 - 11 LAB CHEMISTRY METHOD 12/24/2024 9:06 AM [facility] Glucose 83 70 - 100 mg/dL LAB CHEMISTRY METHOD 12/24/2024 9:06 AM [facility] BUN 11 5 - 25 mg/dL LAB CHEMISTRY METHOD 12/24/2024 9:06 AM EDT [facility] Creatinine 0.55 0.50 - 1.10 mg/dL LAB CHEMISTRY METHOD 12/24/2024 9:06 AM EDT [facility] LAB eGFR 96 >=60 mL/min/1. 73m2 LAB CHEMISTRY METHOD 12/24/2024 9:06 AM EDT [facility] LAB Comment:Calculation based on the Chronic Kidney Disease Epidemiology Collaboration (CKD-EPI) equation refit without adjustment for race. BUN/Creatinine Ratio 20.0 LAB CHEMISTRY METHOD 12/24/2024 9:06 AM EDT [facility] Calcium 9.2 8.5 - 10.5 mg/dL LAB CHEMISTRY METHOD 12/24/2024 9:06 AM EDT [facility] Blood Venous blood specimen / Unknown Venipuncture / Unknown 12/24/2024 7:11 AM EDT 12/24/2024 8:19 AM EDT us Denver Chaudhry MD LAB BLOOD ORDERABLES Final Resu lt [facility] [address] [place] [address], [place] [phone] * (ABNORMAL) Prothrombin time with INR (12/24/2024 7:11 AM EDT) Protime 24.1(H) 10.6 - 13.9 sec LAB COAGULATION METHOD 12/24/2024 8:55 AM EDT [facility] INR 1.9 LAB COAGULATION METHOD 12/24/2024 8:55 AM EDT [facility] Blood Venous blood specimen / Unknown Venipuncture / Unknown 12/24/2024 7:11 AM EDT 12/24/2024 8:19 AM EDT us Denver Chaudhry MD LAB BLOOD ORDERABLES Final Resu lt [facility] [address] [place] [address], documented in this encounter Visit Diagnoses Diagnosis Unspecified atrial fibrillation (CMS/HCC V24, CMS/HCC V28) Heart failure, unspecified (CMS/HCC V24, CMS/HCC V28) Heart failure, unspecified Essential (primary) hypertension Unspecified essential hypertension Hyperlipidemia, unspecified documented in this encounter Care Teams Certified Pharmacist Assistant Relationship Specialty Start Date End Date Denver Chaudhry MD [address] [place] [address] PCP - General Internal Medicine 12/15/24 documented as of this encounter
--- OUTSIDE RECORDS SUMMARY | 2025-01-05 18:33 | XMS_ITS | Encounter Summary ---
Author Organization [employer] Address [address] [place] [address] Care Team Providers Care Residential Program Coordinator Name Role Phone Denver Chaudhry MD Primary Care Provider [phone] Encounter Details Date Type Department Care Team (Late st Contact Info) Description 12/26/2024 Lab Requisition [facility] - Main Lab [address] [facility] [place] [address] Denver Chaudhry MD [address] [place] [phone] Unspecified atrial fibrillation (CMS/HCC V24, CMS/HCC [...] Diagnosis Comments CBC WITH AUTO DIFFERENTIAL Routine 12/28/2024 5:45 AM EDT Unspecified atrial fibrillation (CMS/HCC V24, CMS/HCC V28) Heart failure, unspecified (CMS/HCC V24, CMS/HCC V28) Essential (primary) hypertension Hyperlipidemia, unspecified PROTHROMBIN TIME WITH INR Routine 12/28/2024 5:45 AM EDT Unspecified atrial fibrillation (CMS/HCC V24, CMS/HCC V28) Heart failure, unspecified (CMS/HCC V24, CMS/HCC V28) Essential (primary) hypertension Hyperlipidemia, unspecified CBC AND DIFFERENTIAL Routine 12/28/2024 5:45 AM EDT Unspecified atrial fibrillation (CMS/HCC V24, CMS/HCC V28) Heart failure, unspecified (CMS/HCC V24, CMS/HCC V28) Essential (primary) hypertension Hyperlipidemia, unspecified COMPREHENSIVE METABOLIC PANEL Routine 12/28/2024 5:45 AM EDT Unspecified atrial fibrillation (CMS/HCC V24, CMS/HCC V28) Heart failure, unspecified (CMS/HCC V24, CMS/HCC V28) Essential (primary) hypertension Hyperlipidemia, unspecified documented in this encounter Results * (ABNORMAL) CBC auto differential (12/28/2024 5:45 AM EDT) [facility] WBC 8.5 4.8 - 10.8 K/mcL LAB HEMETOLOGY METHOD 12/28/2024 10:56 AM [facility] LAB RBC 4.20 3.80 - 4.80 M/mcL LAB HEMETOLOGY METHOD 12/28/2024 10:56 AM [facility] Hemoglobin 13.2 11.5 - 16.0 g/dL LAB HEMETOLOGY METHOD 12/28/2024 10:56 AM [facility] LAB Hematocrit 41.1 35.0 - 47.0 % LAB HEMETOLOGY METHOD 12/28/2024 10:56 AM [facility] MCV 97.4 79.0 - 98.0 FL LAB HEMETOLOGY METHOD 12/28/2024 10:56 AM [facility] MCH 31.3 27.0 - 32.0 pcg LAB HEMETOLOGY METHOD 12/28/2024 10:56 AM [facility] MCHC 32.1 32.0 - 37.0 g/dL LAB HEMETOLOGY METHOD 12/28/2024 10:56 AM [facility] RDW 15.3(H) 11.0 - 15.0 % LAB HEMETOLOGY METHOD 12/28/2024 10:56 AM [facility] Platelets 342 130 - 400 K/mcL LAB HEMETOLOGY METHOD 12/28/2024 10:56 AM [facility] MPV 9.8 7.0 - 11.0 FL LAB HEMETOLOGY METHOD 12/28/2024 10:56 AM [facility] NRBC 0.0 <1.0 % LAB HEMETOLOGY METHOD 12/28/2024 10:56 AM [facility] NRBC Absolute 0.00 <0.10 K/mcL LAB HEMETOLOGY METHOD 12/28/2024 10:56 AM [facility] Neutrophils Relative 60.2 % LAB HEMETOLOGY METHOD 12/28/2024 10:56 AM [facility] Lymphocytes Relative 29.0 % LAB HEMETOLOGY METHOD 12/28/2024 10:56 AM [facility] Monocytes Relative 7.1 % LAB HEMETOLOGY METHOD 12/28/2024 10:56 AM [facility] Eosinophils Relative 2.0 % LAB HEMETOLOGY METHOD 12/28/2024 10:56 AM [facility] Basophils Relative 0.8 % LAB HEMETOLOGY METHOD 12/28/2024 10:56 AM [facility] Immature Granulocytes Relative 0.9 % LAB HEMETOLOGY METHOD 12/28/2024 10:56 AM [facility] Neutrophils Absolute 5.13 1.50 - 7.00 K/mcL LAB HEMETOLOGY METHOD 12/28/2024 10:56 AM [facility] Lymphocytes Absolute 2.48 1.00 - 5.00 K/mcL LAB HEMETOLOGY METHOD 12/28/2024 10:56 AM [facility] Monocytes Absolute 0.61 0.20 - 1.00 K/mcL LAB HEMETOLOGY METHOD 12/28/2024 10:56 AM EDT [facility] Eosinophils Absolute 0.17 0.00 - 0.50 K/[facility] LAB HEMETOLOGY METHOD 12/28/2024 10:56 AM EDT [facility] Basophils Absolute 0.07 0.00 - 0.20 K/[facility] LAB HEMETOLOGY METHOD 12/28/2024 10:56 AM EDT [facility] Immature Granulocytes Absolute 0.08(H) 0.00 - 0.03 K/[facility] LAB HEMETOLOGY METHOD 12/28/2024 10:56 AM EDT [facility] Blood Venous blood specimen / Unknown Venipuncture / Unknown 12/28/2024 5:45 AM EDT 12/28/2024 10:09 AM EDT us Denver Chaudhry MD LAB BLOOD ORDERABLES Final Resu lt [facility] [address] [place] [address], [place] [phone] * (ABNORMAL) Comprehensive metabolic panel (12/28/2024 5:45 AM EDT) Sodium 137 133 - 145 mmol/L LAB CHEMISTRY METHOD 12/28/2024 11:15 AM [facility] Potassium 5.1 3.5 - 5.5 mmol/L LAB CHEMISTRY METHOD 12/28/2024 11:15 AM [facility] Chloride 104 96 - 110 mmol/L LAB CHEMISTRY METHOD 12/28/2024 11:15 AM [facility] CO2 27 21 - 32 mmol/L LAB CHEMISTRY METHOD 12/28/2024 11:15 AM [facility] Anion Gap 6 3 - 11 LAB CHEMISTRY METHOD 12/28/2024 11:15 AM [facility] Glucose 77 70 - 100 mg/dL LAB CHEMISTRY METHOD 12/28/2024 11:15 AM [facility] BUN 18 5 - 25 mg/dL LAB CHEMISTRY METHOD 12/28/2024 11:15 AM [facility] Creatinine 0.94 0.50 - 1.10 mg/dL LAB CHEMISTRY METHOD 12/28/2024 11:15 AM [facility] LAB eGFR 63 >=60 mL/min/1. 73m2 LAB CHEMISTRY METHOD 12/28/2024 11:15 AM [facility] Comment:Calculation based on the Chronic Kidney Disease Epidemiology Collaboration (CKD-EPI) equation refit without adjustment for race. BUN/Creatinine Ratio 19.1 LAB CHEMISTRY METHOD 12/28/2024 11:15 AM [facility] Calcium 9.7 8.5 - 10.5 mg/dL LAB CHEMISTRY METHOD 12/28/2024 11:15 AM [facility] AST (SGOT) 60(H) 10 - 42 unit/L LAB CHEMISTRY METHOD 12/28/2024 11:15 AM [facility] ALT (SGPT) 53 10 - 60 unit/L LAB CHEMISTRY METHOD 12/28/2024 11:15 AM [facility] Alkaline Phosphatase 102 42 - 121 unit/L LAB CHEMISTRY METHOD 12/28/2024 11:15 AM [facility] Total Protein 6.8 6.0 - 8.0 g/dL LAB CHEMISTRY METHOD 12/28/2024 11:15 AM [facility] Albumin 3.2 3.2 - 5.0 g/dL LAB CHEMISTRY METHOD 12/28/2024 11:15 AM [facility] Total Bilirubin 0.4 0.0 - 1.4 mg/dL LAB CHEMISTRY METHOD 12/28/2024 11:15 AM [facility] Blood Venous blood specimen / Unknown Venipuncture / Unknown 12/28/2024 5:45 AM EDT 12/28/2024 10:09 AM EDT Denver Chaudhry MD LAB BLOOD ORDERABLES Final Resu lt Performing Organization Address City/[facility]/ZIP Co de Phone Number [facility] [address] [place] [address], [place] [phone] * (ABNORMAL) Prothrombin time with INR (12/28/2024 5:45 AM EDT) Protime 29.6(H) 10.6 - 13.9 sec LAB COAGULATION METHOD 12/28/2024 10:41 AM EDT [facility] INR 2.4 LAB COAGULATION METHOD 12/28/2024 10:41 AM EDT [facility] Blood Venous blood specimen / Unknown Venipuncture / Unknown 12/28/2024 5:45 AM EDT 12/28/2024 10:09 AM EDT Denver Chaudhry MD LAB BLOOD ORDERABLES Final Resu lt Performing Organization Address [facility]/ZIP Co de Phone Number [facility] [address] [place] [address], [place] [phone] documented in this encounter Visit Diagnoses Diagnosis Unspecified atrial fibrillation (CMS/HCC V24, CMS/HCC V28) Heart failure, unspecified (CMS/HCC V24, CMS/HCC V28) Heart failure, unspecified Essential (primary) hypertension Unspecified essential hypertension Hyperlipidemia, unspecified documented in this encounter Care Teams Residential Program Coordinator Relationship Specialty Start Date End Date Denver Chaudhry MD [address] [place] [address] PCP - General Internal Medicine 12/15/24 documented as of this encounter
--- OUTSIDE RECORDS SUMMARY | 2025-01-05 18:33 | XMS_ITS | Encounter Summary ---
Author Organization [employer] Address [address] [place] [address] Care Team Providers Care [employer]pper [employer] Name Role Phone Denver Chaudhry MD Primary Care Provider Encounter Details Date Type Department Care Team (Late st Contact Info) Description 01/01/2025 Lab Requisition [facility] - Main Lab 299 [facility] [place] [address] Denver Chaudhry MD [address] [place] [phone] Unspecified atrial fibrillation (CMS/HCC V24, CMS/HCC [...] Diagnosis Comments CBC WITH AUTO DIFFERENTIAL Routine 01/04/2025 6:00 AM EDT Unspecified atrial fibrillation (CMS/HCC V24, CMS/HCC V28) Heart failure, unspecified (CMS/HCC V24, CMS/HCC V28) Essential (primary) hypertension Hyperlipidemia, unspecified PROTHROMBIN TIME WITH INR Routine 01/04/2025 6:00 AM EDT Unspecified atrial fibrillation (CMS/HCC V24, CMS/HCC V28) Heart failure, unspecified (CMS/HCC V24, CMS/HCC V28) Essential (primary) hypertension Hyperlipidemia, unspecified CBC AND DIFFERENTIAL Routine 01/04/2025 6:00 AM EDT Unspecified atrial fibrillation (CMS/HCC V24, CMS/HCC V28) Heart failure, unspecified (CMS/HCC V24, CMS/HCC V28) Essential (primary) hypertension Hyperlipidemia, unspecified COMPREHENSIVE METABOLIC PANEL Routine 01/04/2025 6:00 AM EDT Unspecified atrial fibrillation (CMS/HCC V24, CMS/HCC V28) Heart failure, unspecified (CMS/HCC V24, CMS/HCC V28) Essential (primary) hypertension Hyperlipidemia, unspecified documented in this encounter Results * (ABNORMAL) CBC auto differential (01/04/2025 6:00 AM EDT) [facility] WBC 6.6 4.8 - 10.8 K/mcL LAB HEMETOLOGY METHOD 01/04/2025 10:34 AM [facility] RBC 4.20 3.80 - 4.80 M/mcL LAB HEMETOLOGY METHOD 01/04/2025 10:34 AM [facility] Hemoglobin 12.9 11.5 - 16.0 g/dL LAB HEMETOLOGY METHOD 01/04/2025 10:34 AM [facility] LAB Hematocrit 41.4 35.0 - 47.0 % LAB HEMETOLOGY METHOD 01/04/2025 10:34 AM [facility] LAB MCV 97.9 79.0 - 98.0 FL LAB HEMETOLOGY METHOD 01/04/2025 10:34 AM [facility] MCH 30.5 27.0 - 32.0 pcg LAB HEMETOLOGY METHOD 01/04/2025 10:34 AM [facility] LAB MCHC 31.2(L) 32.0 - 37.0 g/dL LAB HEMETOLOGY METHOD 01/04/2025 10:34 AM [facility] LAB RDW 15.5(H) 11.0 - 15.0 % LAB HEMETOLOGY METHOD 01/04/2025 10:34 AM [facility] Platelets 263 130 - 400 K/mcL LAB HEMETOLOGY METHOD 01/04/2025 10:34 AM [facility] MPV 10.1 7.0 - 11.0 FL LAB HEMETOLOGY METHOD 01/04/2025 10:34 AM [facility] LAB NRBC 0.0 <1.0 % LAB HEMETOLOGY METHOD 01/04/2025 10:34 AM [facility] NRBC Absolute 0.00 <0.10 K/mcL LAB HEMETOLOGY METHOD 01/04/2025 10:34 AM [facility] Neutrophils Relative 53.6 % LAB HEMETOLOGY METHOD 01/04/2025 10:34 AM [facility] Lymphocytes Relative 33.8 % LAB HEMETOLOGY METHOD 01/04/2025 10:34 AM [facility] Monocytes Relative 8.6 % LAB HEMETOLOGY METHOD 01/04/2025 10:34 AM [facility] Eosinophils Relative 2.3 % LAB HEMETOLOGY METHOD 01/04/2025 10:34 AM [facility] Basophils Relative 1.1 % LAB HEMETOLOGY METHOD 01/04/2025 10:34 AM [facility] Immature Granulocytes Relative 0.6 % LAB HEMETOLOGY METHOD 01/04/2025 10:34 AM [facility] Neutrophils Absolute 3.55 1.50 - 7.00 K/mcL LAB HEMETOLOGY METHOD 01/04/2025 10:34 AM [facility] Lymphocytes Absolute 2.24 1.00 - 5.00 K/mcL LAB HEMETOLOGY METHOD 01/04/2025 10:34 AM [facility] Monocytes Absolute 0.57 0.20 - 1.00 K/mcL LAB HEMETOLOGY METHOD 01/04/2025 10:34 AM EDT [facility] LAB Eosinophils Absolute 0.15 0.00 - 0.50 K/[facility] LAB HEMETOLOGY METHOD 01/04/2025 10:34 AM EDT [facility] Basophils Absolute 0.07 0.00 - 0.20 K/[facility] LAB HEMETOLOGY METHOD 01/04/2025 10:34 AM EDT [facility] Immature Granulocytes Absolute 0.04(H) 0.00 - 0.03 K/[facility] LAB HEMETOLOGY METHOD 01/04/2025 10:34 AM EDT [facility] Blood Venous blood specimen / Unknown Venipuncture / Unknown 01/04/2025 6:00 AM EDT 01/04/2025 10:06 AM EDT us Denver Chaudhry MD LAB BLOOD ORDERABLES Final Resu lt [facility] [address] [place] [address], [place] [phone] * (ABNORMAL) Comprehensive metabolic panel (01/04/2025 6:00 AM EDT) Sodium 139 133 - 145 mmol/L LAB CHEMISTRY METHOD 01/04/2025 10:59 AM [facility] Potassium 5.1 3.5 - 5.5 mmol/L LAB CHEMISTRY METHOD 01/04/2025 10:59 AM [facility] Chloride 105 96 - 110 mmol/L LAB CHEMISTRY METHOD 01/04/2025 10:59 AM [facility] CO2 29 21 - 32 mmol/L LAB CHEMISTRY METHOD 01/04/2025 10:59 AM [facility] Anion Gap 5 3 - 11 LAB CHEMISTRY METHOD 01/04/2025 10:59 AM [facility] Glucose 74 70 - 100 mg/dL LAB CHEMISTRY METHOD 01/04/2025 10:59 AM [facility] BUN 14 5 - 25 mg/dL LAB CHEMISTRY METHOD 01/04/2025 10:59 AM [facility] Creatinine 0.70 0.50 - 1.10 mg/dL LAB CHEMISTRY METHOD 01/04/2025 10:59 AM [facility] LAB eGFR 90 >=60 mL/min/1. 73m2 LAB CHEMISTRY METHOD 01/04/2025 10:59 AM [facility] LAB Comment:Calculation based on the Chronic Kidney Disease Epidemiology Collaboration (CKD-EPI) equation refit without adjustment for race. BUN/Creatinine Ratio 20.0 LAB CHEMISTRY METHOD 01/04/2025 10:59 AM [facility] Calcium 9.7 8.5 - 10.5 mg/dL LAB CHEMISTRY METHOD 01/04/2025 10:59 AM [facility] AST (SGOT) 47(H) 10 - 42 unit/L LAB CHEMISTRY METHOD 01/04/2025 10:59 AM [facility] ALT (SGPT) 48 10 - 60 unit/L LAB CHEMISTRY METHOD 01/04/2025 10:59 AM [facility] Alkaline Phosphatase 89 42 - 121 unit/L LAB CHEMISTRY METHOD 01/04/2025 10:59 AM [facility] Total Protein 6.7 6.0 - 8.0 g/dL LAB CHEMISTRY METHOD 01/04/2025 10:59 AM [facility] Albumin 3.3 3.2 - 5.0 g/dL LAB CHEMISTRY METHOD 01/04/2025 10:59 AM [facility] Total Bilirubin 0.4 0.0 - 1.4 mg/dL LAB CHEMISTRY METHOD 01/04/2025 10:59 AM [facility] Blood Venous blood specimen / Unknown Venipuncture / Unknown 01/04/2025 6:00 AM EDT 01/04/2025 10:06 AM EDT Denver Chaudhry MD LAB BLOOD ORDERABLES Final Resu lt Performing Organization Address City/[facility]/ZIP Co de Phone Number [facility] [address] [place] [address], [place] [phone] * (ABNORMAL) Prothrombin time with INR (01/04/2025 6:00 AM EDT) Protime 26.1(H) 10.6 - 13.9 sec LAB COAGULATION METHOD 01/04/2025 10:32 AM EDT [facility] INR 2.1 LAB COAGULATION METHOD 01/04/2025 10:32 AM EDT [facility] Blood Venous blood specimen / Unknown Venipuncture / Unknown 01/04/2025 6:00 AM EDT 01/04/2025 10:06 AM EDT Denver Chaudhry MD LAB BLOOD ORDERABLES Final Resu lt Performing Organization Address [facility]/ZIP Co de Phone Number [facility] [address] [place] [address], [place] [phone] documented in this encounter Visit Diagnoses Diagnosis Unspecified atrial fibrillation (CMS/HCC V24, CMS/HCC V28) Heart failure, unspecified (CMS/HCC V24, CMS/HCC V28) Heart failure, unspecified Essential (primary) hypertension Unspecified essential hypertension Hyperlipidemia, unspecified documented in this encounter Care Teams [employer] Relationship Specialty Start Date End Date Denver Chaudhry MD [address] [place] [address] PCP - General Internal Medicine 12/15/24 documented as of this encounter
--- OUTSIDE RECORDS SUMMARY | 2025-01-05 18:33 | XMS_ITS | Encounter Summary ---
Author Organization [email or web address] Address [address] [place] [address] Care Team Providers Care Card Dealer Name Role Phone Denver Chaudhry MD Primary Care Provider [phone] Encounter Details Date Type Department Care Team (Late st Contact Info) Description 01/02/2025 Lab Requisition [facility] - Main Lab [address] [facility] [place] [address] Randall Ac MD [address] [place] [address] Unspecified atrial fibrillation (CMS/HCC V24, CMS/HCC V28) [...] V28) documented in this encounter Care Teams Card Dealer Relationship Specialty Start Date End Date Denver Chaudhry MD [address] [place] [address] PCP - General Internal Medicine 12/15/24 documented as of this encounter
--- OUTSIDE RECORDS SUMMARY | 2025-01-05 18:33 | XMS_ITS | Clinical Summary ---
Author Organization [address] Address [address] [place] [address] Phone Care Team Providers Care Fruit And Vegetable Packer Name Role Phone Denver Chaudhry MD Primary Care Provider [phone] Encounters Date Type Department Care Team Description 01/02/2025 Lab Requisition [facility] [address] [place] [phone] Randall Ac MD Unspecified atrial fibrillation (CMS/HCC V24, CMS/HCC V28) 01/01/2025 Lab Requisition [facility] [address] [place] [phone] Denver Chaudhry MD Unspecified atrial fibrillation (CMS/HCC V24, CMS/HCC V28); Heart failure, unspecified (CMS/HCC V24, CMS/HCC V28); Essential (primary) hypertension; Hyperlipidemia, unspecified 01/01/2025 Lab Requisition [facility] [address] [place] [phone] Denver Chaudhry MD Unspecified atrial fibrillation (CMS/HCC V24, CMS/HCC V28) 12/26/2024 Lab Requisition [facility] [address] [place] [phone] Denver Chaudhry MD Unspecified atrial fibrillation (CMS/HCC V24, CMS/HCC V28); Heart failure, unspecified (CMS/HCC V24, CMS/HCC V28); Essential (primary) hypertension; Hyperlipidemia, unspecified 12/25/2024 Lab Requisition [facility] [address] [place] [phone] Denver Chaudhry MD 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 12/23/2024 Lab Requisition [facility] [address] [place] [phone] Denver Chaudhry MD Unspecified atrial fibrillation (CMS/HCC V24, CMS/HCC V28); Heart failure, unspecified (CMS/HCC V24, CMS/HCC V28); Essential (primary) hypertension; Hyperlipidemia, unspecified 12/22/2024 Lab Requisition [facility] [address] [place] [phone] Denver Chaudhry MD Unspecified atrial fibrillation (CMS/HCC V24, CMS/HCC V28) 12/18/2024 Lab Requisition [facility] [address] [place] [phone] Denver Chaudhry MD Unspecified atrial fibrillation (CMS/HCC V24, CMS/HCC V28); Heart failure, unspecified (CMS/HCC V24, CMS/HCC V28); Hyperlipidemia, unspecified 12/17/2024 Lab Requisition [facility] [address] [place] [phone] Denver Chaudhry MD Unspecified atrial fibrillation (CMS/HCC V24, CMS/HCC V28) 12/16/2024 Lab Requisition [facility] [address] [place] [phone] Denver Chaudhry MD Heart failure, unspecified (CMS/HCC V24, CMS/HCC V28); Essential (primary) hypertension; Hyperlipidemia, unspecified 12/15/2024 Lab Requisition [facility] [address] [place] [phone] Denver Chaudhry MD Heart failure, unspecified (CMS/HCC V24, CMS/HCC V28); Unspecified atrial fibrillation (CMS/HCC V24, CMS/HCC V28); Hyperlipidemia, unspecified; 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 from Last 3 Months Social History Tobacco Use Types Packs/Day Years Used Date Smoking Tobacco: Never Assessed Comments Unknown Sex and Gender Information Value Date Recorded Sex Assigned at Not on file Legal Sex Female 9:16 AM EDT Gender Identity Not on file Sexual Orientation Not on file Plan of Treatment Health Maintenance Due Date Last Done Comments Colorectal Cancer Screening: Colonoscopy 1950 DTaP,Tdap,and Td Vaccines (1 - Tdap) 1968 Pneumococcal Vaccine: 50+ Years (1 of 1 - PCV) 07/13/1999 Zoster Vaccines (1 of 2) 07/13/1999 Depression Screening 03/11/2024 RSV Immunization Adult Patients (1 - 1-dose 75+ series) 2024 COVID-19 Vaccine (1 - 2023- season) 2024 Influenza Vaccine (#1) 2024 Cholesterol Screening (Lipid Panel) 12/15/2024 Falls Risk Assessment 12/15/2024 Hepatitis C Screening 12/15/2024 Medicare Annual Wellness Visit 12/15/2024 Osteoporosis Screening (Bone Density Screening) 12/15/2024 Social Influencers of Health Screening 12/15/2024 Hypertension/CHF/CAD Annual BMP Blood Test 12/28/2025 01/04/2025, 12/28/2024, 12/24/2024, Additional history exists HIB Vaccines Aged Out No longer eligi ble based on patient's age to complete this topic HPV Vaccines Aged Out No longer eligi ble based on patient's age to complete this topic Hepatitis A Vaccines Aged Out No long er eligible based on patient's age to complete this topic Hepatitis B Vaccines Aged Out No long er eligible based on patient's age to complete this topic IPV Vaccines Aged Out No longer eligi ble based on patient's age to complete this topic MMR Vaccines Aged Out No longer eligi ble based on patient's age to complete this topic Meningococcal ACWY Vaccine Aged Out N o longer eligible based on patient's age to complete this topic Meningococcal B Vaccine Aged Out No l onger eligible based on patient's age to complete this topic RSV Immunization Patients Under 20 months Aged Out No longer eligible based on patient's age to complete this topic Varicella Vaccines Aged Out No longer eligible based on patient's age to complete this topic Procedures Procedure Name Priority Date/Time Associated Diagnosis [...] Hyperlipidemia, unspecified PROTHROMBIN TIME WITH INR Routine 01/01/2025 5:56 AM EDT Unspecified atrial fibrillation (CMS/HCC V24, CMS/HCC V28) CBC WITH AUTO DIFFERENTIAL Routine 12/28/2024 5:45 [...] CMS/HCC V28) Essential (primary) hypertension Hyperlipidemia, unspecified DIGOXIN LEVEL Routine 12/25/2024 4:53 AM EDT 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 CBC WITH AUTO DIFFERENTIAL Routine 12/24/2024 7:11 [...] Hyperlipidemia, unspecified PROTHROMBIN TIME WITH INR Routine 12/22/2024 5:11 AM EDT Unspecified atrial fibrillation (CMS/HCC V24, CMS/HCC V28) CBC WITH AUTO DIFFERENTIAL Routine 12/21/2024 6:00 AM EDT Unspecified atrial fibrillation (CMS/HCC V24, CMS/HCC V28) Heart failure, unspecified (CMS/HCC V24, CMS/HCC V28) Hyperlipidemia, unspecified COMPREHENSIVE METABOLIC PANEL Routine 12/21/2024 6:00 AM EDT Unspecified atrial fibrillation (CMS/HCC V24, CMS/HCC V28) Heart failure, unspecified (CMS/HCC V24, CMS/HCC V28) Hyperlipidemia, unspecified CBC AND DIFFERENTIAL Routine 12/21/2024 6:00 AM EDT Unspecified atrial fibrillation (CMS/HCC V24, CMS/HCC V28) Heart failure, unspecified (CMS/HCC V24, CMS/HCC V28) Hyperlipidemia, unspecified PROTHROMBIN TIME WITH INR Routine 12/21/2024 6:00 AM EDT Unspecified atrial fibrillation (CMS/HCC V24, CMS/HCC V28) Heart failure, unspecified (CMS/HCC V24, CMS/HCC V28) Hyperlipidemia, unspecified PROTHROMBIN TIME WITH INR Routine 12/17/2024 8:32 AM EDT Heart failure, unspecified (CMS/HCC V24, CMS/HCC V28) Essential (primary) hypertension Hyperlipidemia, unspecified CBC WITH AUTO DIFFERENTIAL Routine 12/17/2024 8:32 AM EDT Heart failure, unspecified (CMS/HCC V24, CMS/HCC V28) Essential (primary) hypertension Hyperlipidemia, unspecified CBC AND DIFFERENTIAL Routine 12/17/2024 8:32 AM EDT Heart failure, unspecified (CMS/HCC V24, CMS/HCC V28) Essential (primary) hypertension Hyperlipidemia, unspecified BASIC METABOLIC PANEL Routine 12/17/2024 8:32 AM EDT Heart failure, unspecified (CMS/HCC V24, CMS/HCC V28) Essential (primary) hypertension Hyperlipidemia, unspecified CBC WITH AUTO DIFFERENTIAL Routine 12/15/2024 5:30 AM EDT Heart failure, unspecified (CMS/HCC V24, CMS/HCC V28) Unspecified atrial fibrillation (CMS/HCC V24, CMS/HCC V28) Hyperlipidemia, unspecified 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 DIGOXIN LEVEL Routine 12/15/2024 5:30 AM EDT Heart failure, unspecified (CMS/HCC V24, CMS/HCC V28) Unspecified atrial fibrillation (CMS/HCC V24, CMS/HCC V28) Hyperlipidemia, unspecified 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 COMPREHENSIVE METABOLIC PANEL Routine 12/15/2024 5:30 AM EDT Heart failure, unspecified (CMS/HCC V24, CMS/HCC V28) Unspecified atrial fibrillation (CMS/HCC V24, CMS/HCC V28) Hyperlipidemia, unspecified 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 PROTHROMBIN TIME WITH INR Routine 12/15/2024 5:30 AM EDT Heart failure, unspecified (CMS/HCC V24, CMS/HCC V28) Unspecified atrial fibrillation (CMS/HCC V24, CMS/HCC V28) Hyperlipidemia, unspecified 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 WBC 6.6 4.8 - 10.8 K/[facility] LAB HEMETOLOGY METHOD 01/04/2025 10:[address] [facility] RBC 4.20 3.80 - 4.80 M/[facility] LAB HEMETOLOGY METHOD 01/04/2025 10:[address] [facility] Hemoglobin 12.9 11.5 - 16.0 g/dL LAB HEMETOLOGY METHOD 01/04/2025 10:34 AM [facility] Hematocrit 41.4 35.0 - 47.0 % LAB HEMETOLOGY METHOD 01/04/2025 10:34 AM [facility] MCV 97.9 79.0 - 98.0 FL LAB HEMETOLOGY METHOD 01/04/2025 10:34 AM [facility] MCH 30.5 27.0 - 32.0 pcg LAB HEMETOLOGY METHOD 01/04/2025 10:34 AM [facility] MCHC 31.2(L) 32.0 - 37.0 g/dL LAB HEMETOLOGY METHOD 01/04/2025 10:34 AM [facility] RDW 15.5(H) 11.0 - 15.0 % LAB HEMETOLOGY METHOD 01/04/2025 10:34 AM [facility] Platelets 263 130 - 400 K/mcL LAB HEMETOLOGY METHOD 01/04/2025 10:34 AM [facility] MPV 10.1 7.0 - 11.0 FL LAB HEMETOLOGY METHOD 01/04/2025 10:34 AM [facility] NRBC 0.0 <1.0 % LAB HEMETOLOGY METHOD 01/04/2025 10:34 AM [facility] NRBC Absolute 0.00 <0.10 K/mcL LAB HEMETOLOGY METHOD 01/04/2025 10:34 AM [facility] Neutrophils Relative 53.6 % LAB HEMETOLOGY METHOD 01/04/2025 10:34 AM [facility] Lymphocytes Relative 33.8 % LAB HEMETOLOGY METHOD 01/04/2025 10:34 AM [facility] Monocytes Relative 8.6 % LAB HEMETOLOGY METHOD 01/04/2025 10:[address] [facility] Eosinophils Relative 2.3 % LAB HEMETOLOGY METHOD 01/04/2025 10:[address] [facility] Basophils Relative 1.1 % LAB HEMETOLOGY METHOD 01/04/2025 10:34 AM [facility] Immature Granulocytes Relative 0.6 % LAB HEMETOLOGY METHOD 01/04/2025 10:[address] [facility] Neutrophils Absolute 3.55 1.50 - 7.00 K/mcL LAB HEMETOLOGY METHOD 01/04/2025 10:[address] [facility] Lymphocytes Absolute 2.24 1.00 - 5.00 K/mcL LAB HEMETOLOGY METHOD 01/04/2025 10:34 AM [facility] Monocytes Absolute 0.57 0.20 - 1.00 K/mcL LAB HEMETOLOGY METHOD 01/04/2025 10:[address] [facility] Eosinophils Absolute 0.15 0.00 - 0.50 K/mcL LAB HEMETOLOGY METHOD 01/04/2025 10:[address] [facility] Basophils Absolute 0.07 0.00 - 0.20 K/mcL LAB HEMETOLOGY METHOD 01/04/2025 10:34 AM [facility] Immature Granulocytes Absolute 0.04(H) 0.00 - 0.03 K/mcL LAB HEMETOLOGY METHOD 01/04/2025 10:[address] [facility] Blood Venous blood specimen / Unknown Venipuncture / Unknown 01/04/2025 6:00 AM EDT 01/04/2025 10:06 AM EDT us Denver Chaudhry MD LAB BLOOD ORDERABLES Final Resu lt [facility] [address] [place] [address], [place] [phone] * (ABNORMAL) Prothrombin time with INR (01/04/2025 6:00 AM EDT) Only the most recent of8 resultswithin the time period is included. Pathologist [facility] Protime 26.1(H) 10.6 - 13.9 sec LAB COAGULATION METHOD 01/04/2025 10:[address] [facility] INR 2.1 LAB COAGULATION METHOD 01/04/2025 10:[address] [facility] Blood Venous blood specimen / Unknown Venipuncture / Unknown 01/04/2025 6:00 AM EDT 01/04/2025 10:06 AM EDT Denver Chaudhry MD LAB BLOOD ORDERABLES Final Resu lt [facility] [address] [place] [address], * (ABNORMAL) Comprehensive metabolic panel (01/04/2025 6:00 AM EDT) Only the most recent of4 resultswithin the time period is included. [facility] Sodium 139 133 - 145 mmol/L LAB CHEMISTRY METHOD 01/04/2025 10:59 AM [facility] Potassium 5.1 3.5 - 5.5 mmol/L LAB CHEMISTRY METHOD 01/04/2025 10:59 AM [facility] Chloride 105 96 - 110 mmol/L LAB CHEMISTRY METHOD 01/04/2025 10:59 AM [facility] CO2 29 21 - 32 mmol/L LAB CHEMISTRY METHOD 01/04/2025 10:59 AM [facility] Anion Gap 5 3 - 11 LAB CHEMISTRY METHOD 01/04/2025 10:59 AM [facility] Glucose 74 70 - 100 mg/dL LAB CHEMISTRY METHOD 01/04/2025 10:59 AM [facility] BUN 14 5 - 25 mg/dL LAB CHEMISTRY METHOD 01/04/2025 10:59 AM [facility] Creatinine 0.70 0.50 - 1.10 mg/dL LAB CHEMISTRY METHOD 01/04/2025 10:59 AM [facility] eGFR 90 >=60 mL/min/1. 73m2 LAB CHEMISTRY METHOD 01/04/2025 10:59 AM [facility] Comment:Calculation based on the Chronic Kidney Disease Epidemiology Collaboration (CKD-EPI) equation refit without adjustment for race. BUN/Creatinine Ratio 20.0 LAB CHEMISTRY METHOD 01/04/2025 10:59 AM [facility] Calcium 9.7 8.5 - 10.5 mg/dL LAB CHEMISTRY METHOD 01/04/2025 10:59 AM [facility] AST (SGOT) 47(H) 10 - 42 unit/L LAB CHEMISTRY METHOD 01/04/2025 10:59 AM [facility] ALT (SGPT) 48 10 - 60 unit/L LAB CHEMISTRY METHOD 01/04/2025 10:59 AM [facility] Alkaline Phosphatase 89 42 - 121 unit/L LAB CHEMISTRY METHOD 01/04/2025 10:59 AM [facility] Total Protein 6.7 6.0 - 8.0 g/dL LAB CHEMISTRY METHOD 01/04/2025 10:59 AM [facility] Albumin 3.3 3.2 - 5.0 g/dL LAB CHEMISTRY METHOD 01/04/2025 10:59 AM [facility] Total Bilirubin 0.4 0.0 - 1.4 mg/dL LAB CHEMISTRY METHOD 01/04/2025 10:59 AM [facility] Blood Venous blood specimen / Unknown Venipuncture / Unknown 01/04/2025 6:00 AM EDT 01/04/2025 10:06 AM EDT us Denver Chaudhry MD LAB BLOOD ORDERABLES Final Resu lt Performing Organization Address City/[facility]/ZIP Co de Phone Number [facility] [address] [place] [address], [place] [phone] * Digoxin level (12/25/2024 4:53 AM EDT) Only the most recent of2 resultswithin the time period is included. Pathologist [facility] Digoxin Lvl 0.6 0.5 - 2.0 ng/mL LAB CHEMISTRY METHOD 12/25/2024 9:[address] [facility] Blood Venous blood specimen / Unknown Venipuncture / Unknown 12/25/2024 4:53 AM EDT 12/25/2024 8:39 AM EDT us Denver Chaudhry MD LAB BLOOD ORDERABLES Final Resu lt Performing Organization Address City/[facility]/ZIP Co de Phone Number [facility] [address] [place] [address], [place] [phone] * Basic metabolic panel (12/24/2024 7:11 AM EDT) Only the most recent of2 resultswithin the time period is included. Pathologist [facility] Sodium 138 133 - 145 mmol/L LAB CHEMISTRY METHOD 12/24/2024 9:[address] [facility] Potassium 4.5 3.5 - 5.5 mmol/L LAB CHEMISTRY METHOD 12/24/2024 9:[address] [facility] Chloride 107 96 - 110 mmol/L LAB CHEMISTRY METHOD 12/24/2024 9:[address] [facility] CO2 26 21 - 32 mmol/L LAB CHEMISTRY METHOD 12/24/2024 9:[address] [facility] Anion Gap 5 3 - 11 LAB CHEMISTRY METHOD 12/24/2024 9:[address] [facility] Glucose 83 70 - 100 mg/dL LAB CHEMISTRY METHOD 12/24/2024 9:[address] [facility] BUN 11 5 - 25 mg/dL LAB CHEMISTRY METHOD 12/24/2024 9:[address] [facility] Creatinine 0.55 0.50 - 1.10 mg/dL LAB CHEMISTRY METHOD 12/24/2024 9:[address] [facility] eGFR 96 >=60 mL/min/1. 73m2 LAB CHEMISTRY METHOD 12/24/2024 9:[address] [facility] Comment:Calculation based on the Chronic Kidney Disease Epidemiology Collaboration (CKD-EPI) equation refit without adjustment for race. BUN/Creatinine Ratio 20.0 LAB CHEMISTRY METHOD 12/24/2024 9:[address] [facility] Calcium 9.2 8.5 - 10.5 mg/dL LAB CHEMISTRY METHOD 12/24/2024 9:[address] [facility] Blood Venous blood specimen / Unknown Venipuncture / Unknown 12/24/2024 7:11 AM EDT 12/24/2024 8:19 AM EDT Denver Chaudhry MD LAB BLOOD ORDERABLES Final Resu lt [facility] [address] [place] [address], from Last 3 Months Insurance Care Teams Fruit And Vegetable Packer Relationship Specialty Start Date End Date Denver Chaudhry MD [address] [place] [phone] PCP - General Internal Medicine 12/15/24
--- OUTSIDE RECORDS SUMMARY | 2025-01-05 18:33 | XMS_ITS | Encounter Summary ---
Author Organization [facility] Address [address] [place] [address] Care Team Providers Care Supervisor Stone Name Role Phone Denver Chaudhry MD Primary Care Provider [phone] Encounter Details Date Type Department Care Team (Late st Contact Info) Description 01/01/2025 Lab Requisition [facility] Lab [address] [facility] [employer] [place] [address] Denver Chaudhry MD [address] [place] [phone] Unspecified atrial fibrillation (CMS/HCC V24, CMS/HCC [...] Diagnosis Comments PROTHROMBIN TIME WITH INR Routine 01/01/2025 5:56 AM EDT Unspecified atrial fibrillation (CMS/HCC V24, CMS/HCC V28) documented in this encounter Results * (ABNORMAL) Prothrombin time with INR (01/01/2025 5:56 AM EDT) Protime 27.4(H) 10.6 - 13.9 sec LAB COAGULATION METHOD 01/01/2025 10:31 AM EDT [facility] INR 2.2 LAB COAGULATION METHOD 01/01/2025 10:31 AM T [facility] Blood Venous blood specimen / Unknown Venipuncture / Unknown 01/01/2025 5:56 AM EDT 01/01/2025 10:07 AM EDT Denver Chaudhry MD LAB BLOOD ORDERABLES Final Resu lt [facility] ([facility] [address] [place] [address], documented in this encounter Visit Diagnoses Diagnosis Unspecified atrial fibrillation (CMS/HCC V24, CMS/HCC V28) documented in this encounter Care Teams Supervisor Stone Relationship Specialty Start Date End Date Denver Chaudhry MD [address] [place] [phone] PCP - General Internal Medicine 12/15/24 documented as of this encounter
--- OUTSIDE RECORDS SUMMARY | 2025-01-05 18:33 | XMS_ITS | Encounter Summary ---
Author Organization [employer] Address [address] [place] [address] Care Team Providers Care Web Mobile Designer Name Role Phone Denver Chaudhry MD Primary Care Provider [phone] Encounter Details Date Type Department Care Team (Late st Contact Info) Description 12/18/2024 Lab Requisition [facility] - Main Lab [address] [facility] [place] [address] Denver Chaudhry MD [address] [place] [phone] Unspecified atrial fibrillation (CMS/HCC V24, CMS/HCC V28); Heart failure, unspecified (CMS/HCC V24, CMS/HCC V28); Hyperlipidemia, unspecified Social History Tobacco Use Types [...] Diagnosis Comments CBC WITH AUTO DIFFERENTIAL Routine 12/21/2024 6:00 [...] 12/21/2024 6:00 AM EDT Unspecified atrial fibrillation ([facility]/HCC V24, [facility]/HCC V28) Heart failure, unspecified (CMS/HCC V24, CMS/HCC V28) Hyperlipidemia, unspecified documented in this encounter Results * (ABNORMAL) CBC auto differential (12/21/2024 6:00 AM EDT) [facility] WBC 8.9 4.8 - 10.8 K/mcL LAB HEMETOLOGY METHOD 12/21/2024 11:18 AM [facility] RBC 4.20 3.80 - 4.80 M/mcL LAB HEMETOLOGY METHOD 12/21/2024 11:18 AM [facility] LAB Hemoglobin 13.0 11.5 - 16.0 g/dL LAB HEMETOLOGY METHOD 12/21/2024 11:18 AM [facility] LAB Hematocrit 40.9 35.0 - 47.0 % LAB HEMETOLOGY METHOD 12/21/2024 11:18 AM [facility] MCV 96.7 79.0 - 98.0 FL LAB HEMETOLOGY METHOD 12/21/2024 11:18 AM [facility] LAB MCH 30.7 27.0 - 32.0 pcg LAB HEMETOLOGY METHOD 12/21/2024 11:18 AM [facility] LAB MCHC 31.8(L) 32.0 - 37.0 g/dL LAB HEMETOLOGY METHOD 12/21/2024 11:18 AM [facility] RDW 14.8 11.0 - 15.0 % LAB HEMETOLOGY METHOD 12/21/2024 11:18 AM [facility] LAB Platelets 354 130 - 400 K/mcL LAB HEMETOLOGY METHOD 12/21/2024 11:18 AM [facility] LAB MPV 9.9 7.0 - 11.0 FL LAB HEMETOLOGY METHOD 12/21/2024 11:18 AM [facility] NRBC 0.0 <1.0 % LAB HEMETOLOGY METHOD 12/21/2024 11:18 AM [facility] LAB NRBC Absolute 0.00 <0.10 K/[facility] LAB HEMETOLOGY METHOD 12/21/2024 11:18 AM [facility] Neutrophils Relative 61.1 % LAB HEMETOLOGY METHOD 12/21/2024 11:18 AM [facility] Lymphocytes Relative 29.3 % LAB HEMETOLOGY METHOD 12/21/2024 11:18 AM [facility] Monocytes Relative 6.2 % LAB HEMETOLOGY METHOD 12/21/2024 11:18 AM [facility] Eosinophils Relative 1.5 % LAB HEMETOLOGY METHOD 12/21/2024 11:18 AM [facility] Basophils Relative 0.8 % LAB HEMETOLOGY METHOD 12/21/2024 11:18 AM [facility] Immature Granulocytes Relative 1.1 % LAB HEMETOLOGY METHOD 12/21/2024 11:18 AM [facility] Neutrophils Absolute 5.42 1.50 - 7.00 K/mcL LAB HEMETOLOGY METHOD 12/21/2024 11:18 AM [facility] Lymphocytes Absolute 2.60 1.00 - 5.00 K/mcL LAB HEMETOLOGY METHOD 12/21/2024 11:18 AM [facility] Monocytes Absolute 0.55 0.20 - 1.00 K/mcL LAB HEMETOLOGY METHOD 12/21/2024 11:18 AM [facility] Eosinophils Absolute 0.13 0.00 - 0.50 K/mcL LAB HEMETOLOGY METHOD 12/21/2024 11:18 AM EDT [facility] Basophils Absolute 0.07 0.00 - 0.20 K/[facility] LAB HEMETOLOGY METHOD 12/21/2024 11:18 AM EDT [facility] Immature Granulocytes Absolute 0.10(H) 0.00 - 0.03 K/[facility] LAB HEMETOLOGY METHOD 12/21/2024 11:18 AM EDT [facility] Blood Venous blood specimen / Unknown Venipuncture / Unknown 12/21/2024 6:00 AM EDT 12/21/2024 10:41 AM EDT Denver Chaudhry MD LAB BLOOD ORDERABLES Final Resu lt [facility] [address] [place] [address], * (ABNORMAL) Comprehensive metabolic panel (12/21/2024 6:00 AM EDT) Sodium 139 133 - 145 mmol/L LAB CHEMISTRY METHOD 12/21/2024 11:59 AM [facility] Potassium 4.3 3.5 - 5.5 mmol/L LAB CHEMISTRY METHOD 12/21/2024 11:59 AM [facility] Chloride 104 96 - 110 mmol/L LAB CHEMISTRY METHOD 12/21/2024 11:59 AM [facility] CO2 26 21 - 32 mmol/L LAB CHEMISTRY METHOD 12/21/2024 11:59 AM [facility] Anion Gap 9 3 - 11 LAB CHEMISTRY METHOD 12/21/2024 11:59 AM [facility] Glucose 69(L) 70 - 100 mg/dL LAB CHEMISTRY METHOD 12/21/2024 11:59 AM [facility] BUN 12 5 - 25 mg/dL LAB CHEMISTRY METHOD 12/21/2024 11:59 AM [facility] Creatinine 0.56 0.50 - 1.10 mg/dL LAB CHEMISTRY METHOD 12/21/2024 11:59 AM [facility] eGFR 95 >=60 mL/min/1. 73m2 LAB CHEMISTRY METHOD 12/21/2024 11:59 AM [facility] Comment:Calculation based on the Chronic Kidney Disease Epidemiology Collaboration (CKD-EPI) equation refit without adjustment for race. BUN/Creatinine Ratio 21.4 LAB CHEMISTRY METHOD 12/21/2024 11:59 AM [facility] Calcium 9.1 8.5 - 10.5 mg/dL LAB CHEMISTRY METHOD 12/21/2024 11:59 AM [facility] AST (SGOT) 75(H) 10 - 42 unit/L LAB CHEMISTRY METHOD 12/21/2024 11:59 AM [facility] ALT (SGPT) 68(H) 10 - 60 unit/L LAB CHEMISTRY METHOD 12/21/2024 11:59 AM [facility] Alkaline Phosphatase 109 42 - 121 unit/L LAB CHEMISTRY METHOD 12/21/2024 11:59 AM [facility] Total Protein 6.6 6.0 - 8.0 g/dL LAB CHEMISTRY METHOD 12/21/2024 11:59 AM [facility] Albumin 2.8(L) 3.2 - 5.0 g/dL LAB CHEMISTRY METHOD 12/21/2024 11:59 AM [facility] Total Bilirubin 0.4 0.0 - 1.4 mg/dL LAB CHEMISTRY METHOD 12/21/2024 11:59 AM [facility] Blood Venous blood specimen / Unknown Venipuncture / Unknown 12/21/2024 6:00 AM EDT 12/21/2024 10:41 AM EDT Denver Chaudhry MD LAB BLOOD ORDERABLES Final Resu lt Performing Organization Address [facility] Co de Phone Number [facility] [address] [place] [address], [place] [phone] * (ABNORMAL) Prothrombin time with INR (12/21/2024 6:00 AM EDT) Protime 68.4(H) 10.6 - 13.9 sec LAB COAGULATION METHOD 12/21/2024 11:32 AM EDT [facility] INR 5.6(HH) LAB COAGULATION METHOD 12/21/2024 11:32 AM EDT [facility] Blood Venous blood specimen / Unknown Venipuncture / Unknown 12/21/2024 6:00 AM EDT 12/21/2024 10:41 AM EDT Denver Chaudhry MD LAB BLOOD ORDERABLES Final Resu lt Performing Organization Address [facility] Co de Phone Number [facility] [address] [place] [address], [place] [phone] documented in this encounter Visit Diagnoses Diagnosis Unspecified atrial fibrillation (CMS/HCC V24, CMS/HCC V28) Heart failure, unspecified (CMS/HCC V24, CMS/HCC V28) Heart failure, unspecified Hyperlipidemia, unspecified documented in this encounter Care Teams Web Mobile Designer Relationship Specialty Start Date End Date Denver Chaudhry MD [address] [place] [address] PCP - General Internal Medicine 12/15/24 documented as of this encounter
== END 2025-01-05 16:13 | disposition home or self-care (01) ==
LOC: HO.HOS 14:10
PROVIDERS: PCP Internal Medicine; Visit Provider Orthopaedic Surgery
DX: S52.501A Unspecified fracture of the lower end of right radius, initial encounter for closed fracture (principal); S52.611A Displaced fracture of right ulna styloid process, initial encounter for closed fracture; I48.11 Longstanding persistent atrial fibrillation; Z79.01 Long term (current) use of anticoagulants
CPT/HCPCS: 99024

== ENCOUNTER → 2025-01-05 14:35 | Outpatient (BNV) | payer MEDICARE, SELFPAY | PROVIDERS: Visit Provider Radiology Diagnostic Radiology | DX: M25.531 Pain in right wrist (principal) | CPT/HCPCS: 73110 ==

== ENCOUNTER 2025-01-15 11:02 | Outpatient (AMB) | payer MEDICARE, SELFPAY ==
--- NOTE | 2025-01-15 11:07 | A.OFFPC_ITS ---
Vital Signs 01/15/25 11:10 Height 5 ft 4 in Weight 117 lb 11.629 oz BMI 20.2 BP 120/70 Blood Pressure Location Lt brachial Position Sitting Pulse 68 Pulse Source Pulse Oximeter Temp 93.7 F L Temp Source Temporal Artery Scan Pulse Oximetry (%) 98 Oxygen Delivery Method Room Air Intake Visit Reasons: Freida Pennington 01/08 - see comments Intake Note: Patient is here for hospital discharge follow up. Patient was discharged from [facility] on 01/08/25. 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 Accompanied by: Friend Allergies paroxetine (From PAXIL) Allergy (Mild, Verified 01/15/25 11:09) ALOPECIA Tobacco use date assessed: 01/15/25 Fall risk assessment: 1 Fall in past year (12/14) Last assessed Fall Risk: 01/15/25 Dental Screening Dental Screen Date: 01/15/25 Did you have a dental visit in the last 12 months?: Yes Did you have a dental problem in the last 6 months where you did not have access to dental care?: No Was dental information given to patient?: Patient has dentist HPI HPI Comments History of Present Illness Details 74 y/o Female Patient who [facility] for EDF. She was admitted at [facility] on 12/11/24 for an evaluation of Right Wrist Pain after a Fall at home. Xrays showed: Distal radial fracture mild dorsal angulation. Fracture was manua lly reduced in the ED under PO Anelgesia. She was discharged to [facility] 12/14 - 01/08. She did see Orthopedics 12/16 and She was placed in a gently moulded short arm cast, to be worn for the next 3 weeks. She had another F/U with Ortho on 01/05 where she was fitted for a velcro wrist splint, to be worn like a cast except for showering, for the next 4 weeks. She does not report new pain, numbness, or tingling. She continues to use the velcro wrist splint as instructed. No issues with swelling or skin changes are noted. 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 Sister No problems noted. Son No problems noted. Social History Housing: Apartment Alcohol intake: never Patient Tobacco Use Status: Former Tobacco user Tobacco use type: Cigarette e-Cigarette/Vaping Use: Never Used Second Hand Smoke Exposure: No service: No Current occupational status: retired Cognitive needs: Yes (wheelchair) Hearing needs: No Vision needs: No Questionnaire Thrive Questionnaire Date Thrive assessed: 07/22/23 YURY-7 AMB Questionnaire YURY-7 Date YURY - 7 assessed: 03/19/23 Source: Developed by Drs. Rahat Barragan, Lisha Dominguez, Atilio Fong and colleagues, with an educational guerda from [employer]. Physical exam (Primary Care) Vital Signs: Last Vital Signs Temp 93.7 F L 01/15/25 11:10 Pulse 68 01/15/25 11:10 BP 120/70 01/15/25 11:10 Pulse Ox 98 01/15/25 11:10 Oxygen Delivery Method Room Air 01/15/25 11:10 BMI result Body Mass Index 20.2 Tobacco/Smoking Status: Tobacco use Status Tobacco use date assessed 01/15/25 01/15/25 11:18 Patient Tobacco Use Status Former Tobacco user 01/15/25 11:18 Tobacco use type Cigarette 01/15/25 11:18 e-Cigarette/Vaping Use Never Used 01/15/25 11:18 Thrive Assessment: Date of Thrive Assessment Date Thrive assessed 07/22/23 01/15/25 11:18 Narrative Right wrist: Well-aligned, no deformity observed. Mild swelling noted. Neurovascular status: Intact; patient able to move fingers and has normal sensation. Range of motion: Limited by splint, but no pain with gentle finger movement. Const General: no acute distress Nutritional Appearance: thin Limitations: wheelchair Extrem Other: Right wrist: Well-aligned, no deformity observed. Mild swelling noted. Neurovascular status: Intact; patient able to move fingers and has normal sensation. Range of motion: Limited by splint, but no pain with gentle finger movement. Psych Speech and movement: Normal speech and movement present Coding Level of Care Code Est Pt Level 4 (93690) Diagnoses Fracture of right distal radius S52.501A Fracture of right ulnar styloid S52.611A Time Spent (min) 20 Assessment & Plan Assessment & Plan (1) Fracture of right distal radius: Code(s): S52.501A - Unspecified fracture of the lower end of right radius, initial encounter for closed fracture Category: Medical Plan: Right distal radius fracture, status post manual reduction and immobilization. Currently stable, healing appropriately with proper splint use. Continue wearing velcro wrist splint as previously instructed (remove only for showering). Monitor for increased pain, swelling, numbness, or skin changes. Encourage gentle finger and hand exercises to maintain mobility. Follow-up with orthopedics as scheduled at 4 weeks or sooner if complications arise. Pain management as needed with PO analgesics. (2) Fracture of right ulnar styloid: Code(s): S52.611A - Displaced fracture of right ulna styloid process, initial encounter for closed fracture Category: Medical Plan: Right distal radius fracture, status post manual reduction and immobilization. Currently stable, healing appropriately with proper splint use. Continue wearing velcro wrist splint as previously instructed (remove only for showering). Monitor for increased pain, swelling, numbness, or skin changes. Encourage gentle finger and hand exercises to maintain mobility. Follow-up with orthopedics as scheduled at 4 weeks or sooner if complications arise. Pain management as needed with PO analgesics.
[2025-01-15 11:10] VITALS: BP 120/70; PULSE 68; TEMP 34.3; O2SAT 98; BMI 20.2
== END 2025-01-15 11:37 | disposition home or self-care (01) ==
LOC: HO.HMCH 11:02
PROVIDERS: Visit Provider Nurse Practitioner Family
DX: S52.501A Unspecified fracture of the lower end of right radius, initial encounter for closed fracture (principal); S52.611A Displaced fracture of right ulna styloid process, initial encounter for closed fracture

== ENCOUNTER → 2025-01-15 11:02 | Outpatient (BNVA) | payer MEDICARE, SELFPAY | PROVIDERS: Visit Provider Nurse Practitioner Family | DX: S52.501A Unspecified fracture of the lower end of right radius, initial encounter for closed fracture (principal); S52.611A Displaced fracture of right ulna styloid process, initial encounter for closed fracture; W19.XXXA Unspecified fall, initial encounter; Y93.9 Activity, unspecified; Y92.9 Unspecified place or not applicable; Y99.9 Unspecified external cause status | CPT/HCPCS: 99212 ==

== ENCOUNTER 2025-02-24 11:04 | Outpatient (REF) | payer MEDICARE, SELFPAY ==
--- NOTE | ~2025-02-24 | XR_ITS ---
EXAMINATION: XR WRIST, RIGHT CLINICAL INFORMATION: M25.531 - Pain in right wrist COMPARISON: Numerous priors, most recently 01/05/2025. TECHNIQUE: PA, lateral, and oblique views of the right wrist. FINDINGS: There is disuse osteopenia. The casting material has been removed. Redemonstration of healing fracture of the distal radial metaphysis, unchanged in alignment, with mild dorsal angulation remaining. Sclerosis of the fracture margins with bridging bony callus consistent with continued healing. Ulnar styloid fracture, with non-union. XR/XR wrist RT min 3V IMPRESSION: 1. Disuse osteopenia. 2. Continued healing of minimally dorsally angulated distal radial fracture. 3. Non-union of ulnar styloid fracture. Electronically signed by: Tc Lawler MD 02/24/2025 02:35 PM ROBB MITCHELL
== END 2025-02-24 11:05 | disposition home or self-care (01) ==
LOC: HO.HOSX 11:04
DX: S52.501D Unspecified fracture of the lower end of right radius, subsequent encounter for closed fracture with routine healing (principal); S52.611D Displaced fracture of right ulna styloid process, subsequent encounter for closed fracture with routine healing; I48.11 Longstanding persistent atrial fibrillation; Z79.01 Long term (current) use of anticoagulants; X58.XXXD Exposure to other specified factors, subsequent encounter
CPT/HCPCS: 73110; 99212

== ENCOUNTER 2025-02-24 13:52 | Outpatient (AMB) | payer MEDICARE, SELFPAY ==
[2025-02-24 14:32] VITALS: BMI 20.1
--- NOTE | 2025-02-24 14:32 | MHC.OFFVIS ---
Vital Signs 02/24/25 14:32 Height 5 ft 4 in Weight 117 lb BMI 20.1 Intake Visit Reasons: OV- f/u Right Distal Radius Fx DOI:12/10/24 Intake Note: Catie is a 74 year old female who presents today as a follow up for her right Distal Radius Fx DOI:12/10/24, with X Ray's. At last visit we discussed to continue to wear her wrist splint and to use her forearm-bearing walker to help ambulate. At today's visit she states she has pain when she is eating and doing daily activitites. She wears her brace and removes it to work on ROM and hand hygiene. Allergies paroxetine (From PAXIL) Allergy (Mild, Verified 02/24/25 14:34) ALOPECIA HPI HPI OV- f/u Right Distal Radius Fx DOI:12/10/24: Details: Catie is a 74 year old right hand dominant woman who presents for a right distal radius & ulnar styloid avulsion fracture, S/P fall, DOI: 12/10/24. She is seen today with her friend. Per patient preference we went ahead and are treating this non operatively. She complains of pain in her wrist when using it for lightweight activities, including eating. She continues to wear her splint, removing it at home to work on ROM. She also complains of numbness to the tip of the thumb & middle finger. Normal sensation in the index finger. She currently resides at home, and is seen today in a wheelchair. She has a forearm bearing walker that she uses at times, & a regular walker at home. She is on Warfarin for Afib. 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 Sister No problems noted. Son No problems noted. Social History (Reviewed 02/24/25 @ 14:34 by JOSSE Cantu Housing: Apartment Alcohol intake: never Patient Tobacco Use Status: Former Tobacco user Tobacco use type: Cigarette e-Cigarette/Vaping Use: Never Used Second Hand Smoke Exposure: No service: No Current occupational status: retired Cognitive needs: Yes (wheelchair) Hearing needs: No Vision needs: No Review of Systems Const All systems reviewed & are unremarkable except as noted in HPI and below Physical Exam Vital Signs: BMI result Body Mass Index 20.1 Const General: no acute distress and alert Orientation/consciousness: patient oriented x3 Neuro General: patient oriented x3 Extrem Other: Evaluation of Right Upper Extremity: The patient is alert, oriented, and in no acute distress Neuro: Today she is explaining that she has some numbness to the tip of the middle finger and the thumb. Normal sensation to the index ring and small fingers. No intrinsic or thenar wasting Vascular: Cap refill brisk ROM: She can make a fist and extend all her digits ~60 degrees supination ~70 degrees pronation, with some discomfort at the limits of range of motion Her fracture was completely nontender today in clinic. Mild clinical mal-alignment of the wrist. Radiographs: 3 views of the right wrist were taken and viewed by me today in clinic. They show a transverse extra-articular distal radius fracture loss of inclination and ~15 degrees apex volar angulation, worsened from prior, with good evidence of interval bony healing. She also has an ulnar styloid avulsion fracture. Psych Appearance: grossly normal Affect: normal affect Attitude: cooperative Assessment & Plan Assessment & Plan (1) Fracture of right distal radius: Code(s): S52.501A - Unspecified fracture of the lower end of right radius, initial encounter for closed fracture Category: Medical (2) Fracture of right ulnar styloid: Code(s): S52.611A - Displaced fracture of right ulna styloid process, initial encounter for closed fracture Category: Medical (3) Atrial fibrillation: Code(s): I48.91 - Unspecified atrial fibrillation Category: Medical Qualifiers: Atrial fibrillation type: longstanding persistent Qualified Code(s): I48.11 - Longstanding persistent atrial fibrillation (4) 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 Right distal radius fracture, transverse From a fall, DOI: 12/10/24 Reduced in ED: 12/11/24 2. Right ulnar styloid avulsion fracture, S/P fall, DOI: 12/10/24 Her fractures were managed non operatively in a cast. She appears to have done well. She is seen today with her friend, and has currently moved back to her home. She is seen today in a Wheelchair & uses a walker at home. She can stop using the forearm bearing walker and may resume use of her regular walker at this time. She will discontinue her splint at this time I discussed activity modifications, she is to use her hand for light & medium weight activities and slowly increase her activity level as tolerated over the next 4-6 weeks. She will continue to work on ROM exercises at home. She should continue to avoid any heavy impact activities for the next 2 weeks. I discussed OT hand therapy but the patient says it would be impossible to get to appointments, and she would like to work on exercises at home by herself. She will follow up prn Scribed for Anihta Marshall MD by Bernard Ashby, medical practice administrator, on 02/24/25 at 2:40 PM, EST. 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
--- OUTSIDE RECORDS SUMMARY | 2025-02-24 18:25 | XMS_ITS | Encounter Summary ---
Author Organization [employer] Address [address] [place] [address] Care Team Providers Care Poultry Process Worker Name Role Phone Denver Chaudhry MD Primary Care Provider [phone] Encounter Details Date Type Department Care Team (Late st Contact Info) Description 12/15/2024 Lab Requisition [facility] - Main Lab [address] [facility] [place] [address] Denver Chaudhry MD [address] [place] [phone] Heart failure, unspecified (CMS/HCC V24, CMS/HCC V28); Unspecified atrial fibrillation (CMS/HCC V24, CMS/HCC V28); Hyperlipidemia, unspecified; Other residential (current) drug therapy Social History Tobacco Use [...] (CMS/HCC V24, CMS/HCC V28) Hyperlipidemia, unspecified Other residential (current) drug therapy PROTHROMBIN TIME WITH INR Routine 12/15/2024 5:30 AM EDT Heart failure, unspecified (CMS/HCC V24, CMS/HCC V28) Unspecified atrial fibrillation (CMS/HCC V24, CMS/HCC V28) Hyperlipidemia, unspecified Other terminal operator (current) drug therapy CBC AND DIFFERENTIAL Routine 12/15/2024 5:30 AM EDT Heart failure, unspecified (CMS/HCC V24, CMS/HCC V28) Unspecified atrial fibrillation (CMS/HCC V24, CMS/HCC V28) Hyperlipidemia, unspecified Other terminal operator (current) drug therapy DIGOXIN LEVEL Routine 12/15/2024 5:30 AM EDT Heart failure, unspecified (CMS/HCC V24, CMS/HCC V28) Unspecified atrial fibrillation (CMS/HCC V24, CMS/HCC V28) Hyperlipidemia, unspecified Other terminal operator (current) drug therapy COMPREHENSIVE METABOLIC PANEL Routine 12/15/2024 5:30 AM EDT Heart failure, unspecified (CMS/HCC V24, CMS/HCC V28) Unspecified atrial fibrillation (CMS/HCC V24, CMS/HCC V28) Hyperlipidemia, unspecified Other terminal operator (current) drug therapy documented in this encounter Results * (ABNORMAL) CBC auto differential (12/15/2024 5:30 AM EDT) [facility] WBC 11.7(H) 4.8 - 10.8 K/mcL LAB HEMETOLOGY METHOD 12/15/2024 10:21 AM [facility] RBC 4.40 3.80 - 4.80 M/mcL LAB HEMETOLOGY METHOD 12/15/2024 10:21 AM [facility] LAB Hemoglobin 13.3 11.5 - 16.0 g/dL LAB HEMETOLOGY METHOD 12/15/2024 10:21 AM [facility] LAB Hematocrit 41.1 35.0 - 47.0 % LAB HEMETOLOGY METHOD 12/15/2024 10:21 AM [facility] MCV 93.4 79.0 - 98.0 FL LAB HEMETOLOGY METHOD 12/15/2024 10:21 AM [facility] MCH 30.2 27.0 - 32.0 pcg LAB HEMETOLOGY METHOD 12/15/2024 10:21 AM [facility] LAB MCHC 32.4 32.0 - 37.0 g/dL LAB HEMETOLOGY METHOD 12/15/2024 10:21 AM [facility] RDW 14.3 11.0 - 15.0 % LAB HEMETOLOGY METHOD 12/15/2024 10:21 AM [facility] Platelets 296 130 - 400 K/mcL LAB HEMETOLOGY METHOD 12/15/2024 10:21 AM [facility] MPV 10.4 7.0 - 11.0 FL LAB HEMETOLOGY METHOD 12/15/2024 10:21 AM [facility] NRBC 0.0 <1.0 % LAB HEMETOLOGY METHOD 12/15/2024 10:21 AM [facility] NRBC Absolute 0.00 <0.10 K/mcL LAB HEMETOLOGY METHOD 12/15/2024 10:21 AM [facility] Neutrophils Relative 70.8 % LAB HEMETOLOGY METHOD 12/15/2024 10:21 AM [facility] Lymphocytes Relative 16.9 % LAB HEMETOLOGY METHOD 12/15/2024 10:21 AM [facility] Monocytes Relative 10.9 % LAB HEMETOLOGY METHOD 12/15/2024 10:21 AM [facility] Eosinophils Relative 0.3 % LAB HEMETOLOGY METHOD 12/15/2024 10:21 AM [facility] Basophils Relative 0.4 % LAB HEMETOLOGY METHOD 12/15/2024 10:21 AM [facility] Immature Granulocytes Relative 0.7 % LAB HEMETOLOGY METHOD 12/15/2024 10:21 AM [facility] Neutrophils Absolute 8.25(H) 1.50 - 7.00 K/mcL LAB HEMETOLOGY METHOD 12/15/2024 10:21 AM EDT [facility] Lymphocytes Absolute 1.97 1.00 - 5.00 K/[facility] LAB HEMETOLOGY METHOD 12/15/2024 10:21 AM EDT [facility] Monocytes Absolute 1.27(H) 0.20 - 1.00 K/mcL LAB HEMETOLOGY METHOD 12/15/2024 10:21 AM EDT [facility] Eosinophils Absolute 0.03 0.00 - 0.50 K/[facility] LAB HEMETOLOGY METHOD 12/15/2024 10:21 AM EDT [facility] Basophils Absolute 0.05 0.00 - 0.20 K/[facility] LAB HEMETOLOGY METHOD 12/15/2024 10:21 AM EDT [facility] Immature Granulocytes Absolute 0.08(H) 0.00 - 0.03 K/[facility] LAB HEMETOLOGY METHOD 12/15/2024 10:21 AM EDT [facility] Blood Venous blood specimen / Unknown Venipuncture / Unknown 12/15/2024 5:30 AM EDT 12/15/2024 9:22 AM EDT us Denver Chaudhry MD LAB BLOOD ORDERABLES Final Resu lt [facility] [address] [place] [address], * Digoxin level (12/15/2024 5:30 AM EDT) Digoxin Lvl 0.8 0.5 - 2.0 ng/mL LAB CHEMISTRY METHOD 12/15/2024 11:02 AM EDT [facility] Blood Venous blood specimen / Unknown Venipuncture / Unknown 12/15/2024 5:30 AM EDT 12/15/2024 9:22 AM EDT us Denver Chaudhry MD LAB BLOOD ORDERABLES Final Resu lt [facility] [address] [place] [address], * (ABNORMAL) Comprehensive metabolic panel (12/15/2024 5:30 AM EDT) Sodium 136 133 - 145 mmol/L LAB CHEMISTRY METHOD 12/15/2024 11:02 AM [facility] Potassium 4.1 3.5 - 5.5 mmol/L LAB CHEMISTRY METHOD 12/15/2024 11:02 AM [facility] Chloride 101 96 - 110 mmol/L LAB CHEMISTRY METHOD 12/15/2024 11:02 AM [facility] CO2 26 21 - 32 mmol/L LAB CHEMISTRY METHOD 12/15/2024 11:02 AM [facility] Anion Gap 9 3 - 11 LAB CHEMISTRY METHOD 12/15/2024 11:02 AM [facility] Glucose 89 70 - 100 mg/dL LAB CHEMISTRY METHOD 12/15/2024 11:02 AM [facility] BUN 11 5 - 25 mg/dL LAB CHEMISTRY METHOD 12/15/2024 11:02 AM [facility] Creatinine 0.58 0.50 - 1.10 mg/dL LAB CHEMISTRY METHOD 12/15/2024 11:02 AM [facility] eGFR 95 >=60 mL/min/1. 73m2 LAB CHEMISTRY METHOD 12/15/2024 11:02 AM [facility] Comment:Calculation based on the Chronic Kidney Disease Epidemiology Collaboration (CKD-EPI) equation refit without adjustment for race. BUN/Creatinine Ratio 19.0 LAB CHEMISTRY METHOD 12/15/2024 11:02 AM [facility] Calcium 9.3 8.5 - 10.5 mg/dL LAB CHEMISTRY METHOD 12/15/2024 11:02 AM [facility] AST (SGOT) 54(H) 10 - 42 unit/L LAB CHEMISTRY METHOD 12/15/2024 11:02 AM EDT [facility] ALT (SGPT) 50 10 - 60 unit/L LAB CHEMISTRY METHOD 12/15/2024 11:02 AM EDT [facility] Alkaline Phosphatase 84 42 - 121 unit/L LAB CHEMISTRY METHOD 12/15/2024 11:02 AM EDT [facility] Total Protein 6.6 6.0 - 8.0 g/dL LAB CHEMISTRY METHOD 12/15/2024 11:02 AM EDT [facility] Albumin 3.1(L) 3.2 - 5.0 g/dL LAB CHEMISTRY METHOD 12/15[facility]24 [facility] Total Bilirubin 1.1 0.0 - 1.4 mg/dL LAB CHEMISTRY METHOD 12/15/2024 11:02 AM EDT [facility] Blood Venous blood specimen / Unknown Venipuncture / Unknown 12/15/2024 5:30 AM EDT 12/15/2024 9:22 AM EDT us Denver Chaudhry MD LAB BLOOD ORDERABLES Final Resu lt [facility] [address] [place] [address], * (ABNORMAL) Prothrombin time with INR (12/15/2024 5:30 AM EDT) Protime 23.7(H) 10.6 - 13.9 sec LAB COAGULATION METHOD 12/15/2024 9:48 AM EDT [facility] INR 1.9 LAB COAGULATION METHOD 12/15/2024 9:48 AM EDT [facility] Blood Venous blood specimen / Unknown Venipuncture / Unknown 12/15/2024 5:30 AM EDT 12/15/2024 9:22 AM EDT us Denver Chaudhry MD LAB BLOOD ORDERABLES Final Resu lt [facility] ([facility] [address] [place] [address], documented in this encounter Visit Diagnoses Diagnosis Heart failure, unspecified (CMS/HCC V24, CMS/HCC V28) Heart failure, unspecified Unspecified atrial fibrillation (CMS/HCC V24, CMS/HCC V28) Hyperlipidemia, unspecified Other residential (current) drug therapy documented in this encounter Care Teams Poultry Process Worker Relationship Specialty Start Date End Date Denver Chaudhry MD [address] [place] [address] PCP - General Internal Medicine 12/15/24 documented as of this encounter
--- OUTSIDE RECORDS SUMMARY | 2025-02-24 18:25 | XMS_ITS | Encounter Summary ---
Author Organization [employer] Address [address] [place] [address] Care Team Providers Care Tunnel Heading Inspector Name Role Phone Denver Chaudhry MD Primary Care Provider [phone] Encounter Details Date Type Department Care Team (Late st Contact Info) Description 12/25/2024 Lab Requisition [facility] - Main Lab [address] [facility] [place] [address] Denver Chaudhry MD [address] [place] [phone] Other fdc (current) drug therapy Social History Tobacco Use [...] LEVEL Routine 12/25/2024 4:53 AM EDT Other ferry terminal agent (current) drug therapy documented in this encounter Results * Digoxin level (12/25/2024 4:53 AM EDT) Digoxin Lvl 0.6 0.5 - 2.0 ng/mL LAB CHEMISTRY METHOD 12/25/2024 9:53 AM EDT [facility] ([facility]) [facility] Blood Venous blood specimen / Unknown Venipuncture / Unknown 12/25/2024 4:53 AM EDT 12/25/2024 8:39 AM EDT us Denver Chaudhry MD LAB BLOOD ORDERABLES Final Resu [facility] [address] [place] [address], documented in this encounter Visit Diagnoses Diagnosis Other fdc (current) drug therapy documented in this encounter Care Teams Tunnel Heading Inspector Relationship Specialty Start Date End Date Denver Chaudhry MD [address] [place] [address] PCP - General Internal Medicine 12/15/24 documented as of this encounter
--- OUTSIDE RECORDS SUMMARY | 2025-02-24 18:25 | XMS_ITS | Encounter Summary ---
Author Organization [employer] Address [address] [place] [address] Care Team Providers Care Police Liaison Name Role Phone Denver Chaudhry MD Primary Care Provider [phone] Encounter Details Date Type Department Care Team (Late st Contact Info) Description 01/01/2025 Lab Requisition [facility] - Main Lab [address] [facility] [place] [address] Denver Chaudhry MD [address] [place] [phone] Unspecified atrial fibrillation (CMS/HCC V24, CMS/HCC [...] CBC auto differential (01/04/2025 6:00 AM EDT) [facility] WBC 6.6 4.8 - 10.8 K/mcL LAB HEMETOLOGY METHOD 01/04/2025 10:34 AM [facility] RBC 4.20 3.80 - 4.80 M/mcL LAB HEMETOLOGY METHOD 01/04/2025 10:34 AM [facility] Hemoglobin 12.9 11.5 - 16.0 g/dL LAB HEMETOLOGY METHOD 01/04/2025 10:34 AM [facility] Hematocrit 41.4 35.0 - 47.0 % LAB HEMETOLOGY METHOD 01/04/2025 10:34 AM [facility] MCV 97.9 79.0 - 98.0 FL LAB HEMETOLOGY METHOD 01/04/2025 10:34 AM [facility] MCH 30.5 27.0 - 32.0 pcg LAB HEMETOLOGY METHOD 01/04/2025 10:34 AM [facility] MCHC 31.2(L) 32.0 - 37.0 g/dL LAB HEMETOLOGY METHOD 01/04/2025 10:34 AM [facility] RDW 15.5(H) 11.0 - 15.0 % LAB HEMETOLOGY METHOD 01/04/2025 10:34 AM [facility] Platelets 263 130 - 400 K/mcL LAB HEMETOLOGY METHOD 01/04/2025 10:34 AM [facility] MPV 10.1 7.0 - 11.0 FL LAB HEMETOLOGY METHOD 01/04/2025 10:34 AM [facility] NRBC 0.0 <1.0 % LAB HEMETOLOGY METHOD 01/04/2025 10:34 AM [facility] NRBC Absolute 0.00 <0.10 K/mcL LAB HEMETOLOGY METHOD 01/04/2025 10:34 AM [facility] Neutrophils Relative 53.6 % LAB HEMETOLOGY METHOD 01/04/2025 10:34 AM [facility] Lymphocytes Relative 33.8 % LAB HEMETOLOGY METHOD 01/04/2025 10:34 AM [facility] Monocytes Relative 8.6 % LAB HEMETOLOGY METHOD 01/04/2025 10:34 AM [facility] Eosinophils Relative 2.3 % LAB HEMETOLOGY METHOD 01/04/2025 10:34 AM [facility] Basophils Relative 1.1 % LAB HEMETOLOGY METHOD 01/04/2025 10:34 AM [facility] Immature Granulocytes Relative 0.6 % LAB HEMETOLOGY METHOD 01/04/2025 10:34 AM [facility] Neutrophils Absolute 3.55 1.50 - 7.00 K/mcL LAB HEMETOLOGY METHOD 01/04/2025 10:34 AM [facility] Lymphocytes Absolute 2.24 1.00 - 5.00 K/mcL LAB HEMETOLOGY METHOD 01/04/2025 10:34 AM [facility] Monocytes Absolute 0.57 0.20 - 1.00 K/mcL LAB HEMETOLOGY METHOD 01/04/2025 10:34 AM EDT [facility] Eosinophils Absolute 0.15 0.00 - 0.50 K/[facility] LAB HEMETOLOGY METHOD 01/04/2025 10:34 AM EDT [facility] Basophils Absolute 0.07 0.00 - 0.20 K/[facility] LAB HEMETOLOGY METHOD 01/04/2025 10:34 AM EDT [facility] Immature Granulocytes Absolute 0.04(H) 0.00 - 0.03 K/[facility] LAB HEMETOLOGY METHOD 01/04/2025 10:34 AM EDT [facility] Blood Venous blood specimen / Unknown Venipuncture / Unknown 01/04/2025 6:00 AM EDT 01/04/2025 10:06 AM EDT us Denver Chaudhry MD LAB BLOOD ORDERABLES Final Resu lt [facility] [address] [place] [address], [place] [phone] * (ABNORMAL) Comprehensive metabolic panel (01/04/2025 6:00 AM EDT) Sodium 139 133 - 145 mmol/L LAB CHEMISTRY METHOD 01/04/2025 10:59 AM [facility] Potassium 5.1 3.5 - 5.5 mmol/L LAB CHEMISTRY METHOD 01/04/2025 10:59 AM [facility] Chloride 105 96 - 110 mmol/L LAB CHEMISTRY METHOD 01/04/2025 10:59 AM [facility] CO2 29 21 - 32 mmol/L LAB CHEMISTRY METHOD 01/04/2025 10:59 AM [facility] Anion Gap 5 3 - 11 LAB CHEMISTRY METHOD 01/04/2025 10:59 AM [facility] Glucose 74 70 - 100 mg/dL LAB CHEMISTRY METHOD 01/04/2025 10:59 AM [facility] BUN 14 5 - 25 mg/dL LAB CHEMISTRY METHOD 01/04/2025 10:59 AM [facility] Creatinine 0.70 0.50 - 1.10 mg/dL LAB CHEMISTRY METHOD 01/04/2025 10:59 AM [facility] eGFR 90 >=60 mL/min/1. 73m2 LAB CHEMISTRY METHOD 01/04/2025 10:59 AM [facility] Comment:Calculation based on the Chronic Kidney Disease Epidemiology Collaboration (CKD-EPI) equation refit without adjustment for race. BUN/Creatinine Ratio 20.0 LAB CHEMISTRY METHOD 01/04/2025 10:59 AM [facility] Calcium 9.7 8.5 - 10.5 mg/dL LAB CHEMISTRY METHOD 01/04/2025 10:59 AM [facility] AST (SGOT) 47(H) 10 - 42 unit/L LAB CHEMISTRY METHOD 01/04/2025 10:59 AM [facility] ALT (SGPT) 48 10 - 60 unit/L LAB CHEMISTRY METHOD 01/04/2025 10:59 AM [facility] Alkaline Phosphatase 89 42 - 121 unit/L LAB CHEMISTRY METHOD 01/04/2025 10:59 AM [facility] Total Protein 6.7 6.0 - 8.0 g/dL LAB CHEMISTRY METHOD 01/04/2025 10:59 AM [facility] Albumin 3.3 3.2 - 5.0 g/dL LAB CHEMISTRY METHOD 01/04/2025 10:59 AM [facility] Total Bilirubin 0.4 0.0 - 1.4 mg/dL LAB CHEMISTRY METHOD 01/04/2025 10:59 AM [facility] Blood Venous blood specimen / Unknown Venipuncture / Unknown 01/04/2025 6:00 AM EDT 01/04/2025 10:06 AM EDT Denver Chaudhry MD LAB BLOOD ORDERABLES Final Resu lt Performing Organization Address City/[facility]/ZIP Co de Phone Number [facility] [address] [place] [address], [place] [phone] * (ABNORMAL) Prothrombin time with INR (01/04/2025 6:00 AM EDT) Protime 26.1(H) 10.6 - 13.9 sec LAB COAGULATION METHOD 01/04/2025 10:32 AM EDT [facility] INR 2.1 LAB COAGULATION METHOD 01/04/2025 10:32 AM EDT [facility] Blood Venous blood specimen / Unknown Venipuncture / Unknown 01/04/2025 6:00 AM EDT 01/04/2025 10:06 AM EDT Denver Chaudhry MD LAB BLOOD ORDERABLES Final Resu lt Performing Organization Address [facility]/ZIP Co de Phone Number [facility] [address] [place] [address], [place] [phone] documented in this encounter Visit Diagnoses Diagnosis Unspecified atrial fibrillation (CMS/HCC V24, CMS/HCC V28) Heart failure, unspecified (CMS/HCC V24, CMS/HCC V28) Heart failure, unspecified Essential (primary) hypertension Unspecified essential hypertension Hyperlipidemia, unspecified documented in this encounter Care Teams Police Liaison Relationship Specialty Start Date End Date Denver Chaudhry MD [address] [place] [address] PCP - General Internal Medicine 12/15/24 documented as of this encounter
--- OUTSIDE RECORDS SUMMARY | 2025-02-24 18:25 | XMS_ITS | Encounter Summary ---
Author Organization [employer] Address [address] [place] [address] Care Team Providers Care Stage Set Designer Name Role Phone Denver Chaudhry MD Primary Care Provider [phone] Encounter Details Date Type Department Care Team (Late st Contact Info) Description 12/16/2024 Lab Requisition [facility] - Main Lab [address] [facility] [place] [address] Denver Chaudhry MD [address] [place] [phone] Heart failure, unspecified (CMS/HCC V24, CMS/HCC [...] 12/17/2024 8:32 AM EDT Heart failure, unspecified ([facility] V24, [facility] V28) Essential (primary) hypertension Hyperlipidemia, unspecified documented in this encounter Results * (ABNORMAL) Prothrombin time with INR (12/17/2024 8:32 AM EDT) Pathologist [facility] Protime 34.1(H) 10.6 - 13.9 sec LAB COAGULATION METHOD 12/17/2024 10:25 AM EDT [facility] INR 2.8 LAB COAGULATION METHOD 12/17/2024 10:25 AM EDT [facility] Blood Venous blood specimen / Unknown Venipuncture / Unknown 12/17/2024 8:32 AM EDT 12/17/2024 9:56 AM EDT Denver Chaudhry MD LAB BLOOD ORDERABLES Final Resu lt [facility] [address] [place] [address], * (ABNORMAL) CBC auto differential (12/17/2024 8:32 AM EDT) [facility] WBC 9.6 4.8 - 10.8 K/mcL LAB HEMETOLOGY METHOD 12/17/2024 10:24 AM EDT [facility] RBC 4.30 3.80 - 4.80 M/[facility] LAB HEMETOLOGY METHOD 12/17/2024 10:24 AM EDT [facility] Hemoglobin 13.1 11.5 - 16.0 g/dL LAB HEMETOLOGY METHOD 12/17/2024 10:24 AM EDT [facility] Hematocrit 40.4 35.0 - 47.0 % LAB HEMETOLOGY METHOD 12/17/2024 10:24 AM EDT [facility] MCV 93.5 79.0 - 98.0 [...] LAB HEMETOLOGY METHOD 12/17/2024 10:24 AM EDT [facility] Neutrophils Absolute 6.10 1.50 - 7.00 K/mcL LAB HEMETOLOGY METHOD 12/17/2024 10:24 AM EDT [facility] Lymphocytes Absolute 2.35 1.00 - 5.00 K/mcL LAB HEMETOLOGY METHOD 12/17/2024 10:24 AM EDT [facility] Monocytes Absolute 0.84 0.20 - 1.00 K/mcL LAB HEMETOLOGY METHOD 12/17/2024 10:24 AM EDT [facility] Eosinophils Absolute 0.14 0.00 - 0.50 K/[facility] LAB HEMETOLOGY METHOD 12/17/2024 10:24 AM EDT [facility] Basophils Absolute 0.08 0.00 - 0.20 K/mcL LAB HEMETOLOGY METHOD 12/17/2024 10:24 AM EDT [facility] Immature Granulocytes Absolute 0.07(H) 0.00 - 0.03 K/mcL LAB HEMETOLOGY METHOD 12/17/2024 10:24 AM EDT [facility] Blood Venous blood specimen / Unknown Venipuncture / Unknown 12/17/2024 8:32 AM EDT 12/17/2024 9:56 AM EDT us Denver Chaudhry MD LAB BLOOD ORDERABLES Final Resu lt [facility] [address] [place] [address], * (ABNORMAL) Basic metabolic panel (12/17/2024 8:32 AM EDT) Sodium 137 133 - 145 mmol/L LAB CHEMISTRY METHOD 12/17/2024 10:48 AM EDT [facility] Potassium 4.3 3.5 - 5.5 [...] lt [facility] [address] [place] [address], documented in this encounter Visit Diagnoses Diagnosis Heart failure, unspecified (CMS/HCC V24, CMS/HCC V28) Heart failure, unspecified Essential (primary) hypertension Unspecified essential hypertension Hyperlipidemia, unspecified documented in this encounter Care Teams Stage Set Designer Relationship Specialty Start Date End Date Denver Chaudhry MD [address] [place] [address] PCP - General Internal Medicine 12/15/24 documented as of this encounter
--- OUTSIDE RECORDS SUMMARY | 2025-02-24 18:25 | XMS_ITS | Clinical Summary ---
Author Organization [address] Address [address] [place] [address] Phone Care Team Providers Care Bus Escort Name Role Phone Denver Chaudhry MD Primary Care Provider Encounters Date Type Department Care Team Description 01/08/2025 Lab Requisition [facility] [address] [place] [phone] Randall Ac MD Unspecified atrial fibrillation (CMS/HCC V24, CMS/HCC V28); Heart failure, unspecified (CMS/HCC V24, CMS/HCC V28); Essential (primary) hypertension; Hyperlipidemia, unspecified 01/06/2025 Lab Requisition [facility] [address] [place] [phone] Randall Ac MD Unspecified atrial fibrillation (CMS/HCC V24, CMS/HCC V28) 01/02/2025 Lab Requisition [facility] [address] [place] [phone] Randall Ac MD Unspecified atrial fibrillation (CMS/HCC V24, CMS/HCC V28) 01/01/2025 Lab Requisition [facility] [address] [place] [phone] Denver Chaudhry MD Unspecified atrial fibrillation (CMS/HCC V24, CMS/HCC V28); Heart failure, unspecified (CMS/HCC V24, CMS/HCC V28); Essential (primary) hypertension; Hyperlipidemia, unspecified 01/01/2025 Lab Requisition [facility] [address] [place] [phone] Denver Chaudhry MD Unspecified atrial fibrillation (CMS/HCC V24, CMS/HCC V28) 12/26/2024 Lab Requisition [facility] [address] [place] [phone] Denver Chaudhry MD Unspecified atrial fibrillation (CMS/HCC V24, CMS/HCC V28); Heart failure, unspecified (CMS/HCC V24, CMS/HCC V28); Essential (primary) hypertension; Hyperlipidemia, unspecified 12/25/2024 Lab Requisition [facility] [address] [place] [phone] Denver Chaudhry MD 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 12/23/2024 Lab Requisition [facility] [address] [place] [phone] Denver Chaudhry MD Unspecified atrial fibrillation (CMS/HCC V24, CMS/HCC V28); Heart failure, unspecified (CMS/HCC V24, CMS/HCC V28); Essential (primary) hypertension; Hyperlipidemia, unspecified 12/22/2024 Lab Requisition [facility] [address] [place] [phone] Denver Chaudhry MD Unspecified atrial fibrillation (CMS/HCC V24, CMS/HCC V28) 12/18/2024 Lab Requisition [facility] [address] [place] [phone] Denver Chaudhry MD Unspecified atrial fibrillation (CMS/HCC V24, CMS/HCC V28); Heart failure, unspecified (CMS/HCC V24, CMS/HCC V28); Hyperlipidemia, unspecified 12/17/2024 Lab Requisition [facility] [address] [place] [phone] Denver Chaudhry MD Unspecified atrial fibrillation (CMS/HCC V24, CMS/HCC V28) 12/16/2024 Lab Requisition [facility] [address] [place] [phone] Denver Chaudhry MD Heart failure, unspecified (CMS/HCC V24, CMS/HCC V28); Essential (primary) hypertension; Hyperlipidemia, unspecified 12/15/2024 Lab Requisition [facility] - Main Lab 299 [facility] [place] [address] Denver Chaudhry MD Heart failure, unspecified (CMS/HCC V24, CMS/HCC V28); Unspecified atrial fibrillation (CMS/HCC V24, CMS/HCC V28); Hyperlipidemia, unspecified; 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 from Last 3 Months [...] DTaP,Tdap,and Td Vaccines (1 - Tdap) 1968 Zoster Vaccines (1 of 2) 07/13/1999 Pneumococcal Vaccine: 50+ Years (2 of 2 - PCV) 04/19/2011 04/19/2010 Depression Screening 03/11/2024 RSV Immunization Adult Patients (1 - 1-dose 75+ series) 2024 COVID-19 Vaccine (1 - season) 2024 Influenza Vaccine (#1) 2024 04/19/2010 Cholesterol Screening (Lipid Panel) 12/15/2024 Falls Risk Assessment 12/15/2024 Hepatitis C Screening 12/15/2024 Medicare Annual Wellness Visit 12/15/2024 Osteoporosis Screening (Bone Density Screening) 12/15/2024 Social Influencers of Health Screening 12/15/2024 Hypertension/CHF/CAD Annual BMP Blood Test 01/04/2026 01/04/2025, 12/28/2024, 12/24/2024, Additional history exists HIB [...] Diagnosis Comments PROTHROMBIN TIME WITH INR Routine 01/07/2025 6:25 AM EDT Unspecified atrial fibrillation (CMS/HCC V24, CMS/HCC V28) CBC WITH AUTO DIFFERENTIAL Routine 01/04/2025 6:00 [...] LEVEL Routine 12/25/2024 4:53 AM EDT Other halfway (current) drug therapy CBC WITH AUTO DIFFERENTIAL [...] (CMS/HCC V24, CMS/HCC V28) Hyperlipidemia, unspecified Other halfway (current) drug therapy DIGOXIN LEVEL Routine 12/15/2024 5:30 AM EDT Heart failure, unspecified (CMS/HCC V24, CMS/HCC V28) Unspecified atrial fibrillation (CMS/HCC V24, CMS/HCC V28) Hyperlipidemia, unspecified 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 COMPREHENSIVE METABOLIC PANEL Routine 12/15/2024 5:30 AM EDT Heart failure, unspecified (CMS/HCC V24, CMS/HCC V28) Unspecified atrial fibrillation (CMS/HCC V24, CMS/HCC V28) Hyperlipidemia, unspecified 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 PROTHROMBIN TIME WITH INR Routine 12/15/2024 5:30 AM EDT Heart failure, unspecified (CMS/HCC V24, CMS/HCC V28) Unspecified atrial fibrillation (CMS/HCC V24, CMS/HCC V28) Hyperlipidemia, unspecified 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 [facility] Protime 18.9(H) 10.6 - 13.9 sec LAB COAGULATION METHOD 01/07/2025 8:54 AM EDT [facility] INR 1.5 LAB COAGULATION METHOD 01/07/2025 8:54 AM EDT [facility] Blood Venous blood specimen / Unknown Venipuncture / Unknown 01/07/2025 6:25 AM EDT 01/07/2025 8:05 AM EDT us Randall Ac MD LAB BLOOD ORDERABLES Final R esult [facility] [address] [place] [address], * (ABNORMAL) CBC auto differential (01/04/2025 6:00 AM EDT) Only the most recent of6 resultswithin the time period is included. [facility] WBC 6.6 4.8 - 10.8 K/mcL LAB HEMETOLOGY METHOD 01/04/2025 10:34 AM EDT [facility] RBC 4.20 3.80 - 4.80 M/mcL LAB HEMETOLOGY METHOD 01/04/2025 10:34 AM EDT [facility] Hemoglobin 12.9 11.5 - 16.0 g/dL LAB HEMETOLOGY METHOD 01/04/2025 10:34 AM EDT [facility] Hematocrit 41.4 35.0 - 47.0 % LAB HEMETOLOGY METHOD 01/04/2025 10:34 AM [facility] MCV 97.9 79.0 - 98.0 FL LAB HEMETOLOGY METHOD 01/04/2025 10:34 AM [facility] MCH 30.5 27.0 - 32.0 pcg LAB HEMETOLOGY METHOD 01/04/2025 10:34 AM [facility] MCHC 31.2(L) 32.0 - 37.0 g/dL LAB HEMETOLOGY METHOD 01/04/2025 10:34 AM [facility] RDW 15.5(H) 11.0 - 15.0 % LAB HEMETOLOGY METHOD 01/04/2025 10:34 AM [facility] Platelets 263 130 - 400 K/mcL LAB HEMETOLOGY METHOD 01/04/2025 10:34 AM [facility] MPV 10.1 7.0 - 11.0 FL LAB HEMETOLOGY METHOD 01/04/2025 10:34 AM [facility] NRBC 0.0 <1.0 % LAB HEMETOLOGY METHOD 01/04/2025 10:34 AM [facility] NRBC Absolute 0.00 <0.10 K/mcL LAB HEMETOLOGY METHOD 01/04/2025 10:34 AM [facility] Neutrophils Relative 53.6 % LAB HEMETOLOGY METHOD 01/04/2025 10:34 AM [facility] Lymphocytes Relative 33.8 % LAB HEMETOLOGY METHOD 01/04/2025 10:34 AM [facility] Monocytes Relative 8.6 % LAB HEMETOLOGY METHOD 01/04/2025 10:34 AM [facility] Eosinophils Relative 2.3 % LAB HEMETOLOGY METHOD 01/04/2025 10:34 AM [facility] Basophils Relative 1.1 % LAB HEMETOLOGY METHOD 01/04/2025 10:34 AM EDT [facility] Immature Granulocytes Relative 0.6 % LAB HEMETOLOGY METHOD 01/04/2025 10:34 AM EDT [facility] Neutrophils Absolute 3.55 1.50 - 7.00 K/mcL LAB HEMETOLOGY METHOD 01/04/2025 10:34 AM EDT [facility] Lymphocytes Absolute 2.24 1.00 - 5.00 K/mcL LAB HEMETOLOGY METHOD 01/04/2025 10:34 AM EDT [facility] Monocytes Absolute 0.57 0.20 - 1.00 K/mcL LAB HEMETOLOGY METHOD 01/04/2025 10:34 AM EDT [facility] Eosinophils Absolute 0.15 0.00 - 0.50 K/mcL LAB HEMETOLOGY METHOD 01/04/2025 10:34 AM EDT [facility] Basophils Absolute 0.07 0.00 - 0.20 K/mcL LAB HEMETOLOGY METHOD 01/04/2025 10:34 AM EDT [facility] Immature Granulocytes Absolute 0.04(H) 0.00 - 0.03 K/mcL LAB HEMETOLOGY METHOD 01/04/2025 10:34 AM EDT [facility] Blood Venous blood specimen / Unknown Venipuncture / Unknown 01/04/2025 6:00 AM EDT 01/04/2025 10:06 AM EDT us Denver Chaudhry MD LAB BLOOD ORDERABLES Final Resu lt [facility] [address] [place] [address], * (ABNORMAL) Comprehensive metabolic panel (01/04/2025 6:00 AM EDT) Only the most recent of4 resultswithin the time period is included. Sodium 139 133 - 145 mmol/L LAB CHEMISTRY METHOD 01/04/2025 10:59 AM [facility] Potassium 5.1 3.5 - 5.5 mmol/L LAB CHEMISTRY METHOD 01/04/2025 10:59 AM [facility] Chloride 105 96 - 110 mmol/L LAB CHEMISTRY METHOD 01/04/2025 10:59 AM [facility] CO2 29 21 - 32 mmol/L LAB CHEMISTRY METHOD 01/04/2025 10:59 AM [facility] Anion Gap 5 3 - 11 LAB CHEMISTRY METHOD 01/04/2025 10:59 AM [facility] Glucose 74 70 - 100 mg/dL LAB CHEMISTRY METHOD 01/04/2025 10:59 AM [facility] BUN 14 5 - 25 mg/dL LAB CHEMISTRY METHOD 01/04/2025 10:59 AM [facility] Creatinine 0.70 0.50 - 1.10 mg/dL LAB CHEMISTRY METHOD 01/04/2025 10:59 AM [facility] eGFR 90 >=60 mL/min/1. 73m2 LAB CHEMISTRY METHOD 01/04/2025 10:59 AM [facility] Comment:Calculation based on the Chronic Kidney Disease Epidemiology Collaboration (CKD-EPI) equation refit without adjustment for race. BUN/Creatinine Ratio 20.0 LAB CHEMISTRY METHOD 01/04/2025 10:59 AM [facility] Calcium 9.7 8.5 - 10.5 mg/dL LAB CHEMISTRY METHOD 01/04/2025 10:59 AM [facility] AST (SGOT) 47(H) 10 - 42 unit/L LAB CHEMISTRY METHOD 01/04/2025 10:59 AM [facility] ALT (SGPT) 48 10 - 60 unit/L LAB CHEMISTRY METHOD 01/04/2025 10:59 AM [facility] Alkaline Phosphatase 89 42 - 121 unit/L LAB CHEMISTRY METHOD 01/04/2025 10:59 AM EDT [facility] Total Protein 6.7 6.0 - 8.0 g/dL LAB CHEMISTRY METHOD 01/04/2025 10:59 AM EDT [facility] Albumin 3.3 3.2 - 5.0 g/dL LAB CHEMISTRY METHOD 01/04/2025 10:59 AM EDT [facility] Total Bilirubin 0.4 0.0 - 1.4 mg/dL LAB CHEMISTRY METHOD 01/04/2025 10:59 AM EDT [facility] Blood Venous blood specimen / Unknown Venipuncture / Unknown 01/04/2025 6:00 AM EDT 01/04/2025 10:06 AM EDT us Denver Chaudhry MD LAB BLOOD ORDERABLES Final Resu lt Performing Organization Address City/[facility]/ZIP Co de Phone Number [facility] [address] [place] [address], [place] [phone] * Digoxin level (12/25/2024 4:53 AM EDT) Only the most recent of2 resultswithin the time period is included. Digoxin Lvl 0.6 0.5 - 2.0 ng/mL LAB CHEMISTRY METHOD 12/25/2024 9:53 AM EDT [facility] Blood Venous blood specimen / Unknown Venipuncture / Unknown 12/25/2024 4:53 AM EDT 12/25/2024 8:39 AM EDT us Denver Chaudhry MD LAB BLOOD ORDERABLES Final Resu lt Performing Organization Address City/[facility]/ZIP Co de Phone Number [facility] [address] [place] [address], [place] [phone] * Basic metabolic panel (12/24/2024 7:11 AM EDT) Only the most recent of2 resultswithin the time period is included. Sodium 138 133 - 145 mmol/L LAB CHEMISTRY METHOD 12/24/2024 9:06 AM [facility] Potassium 4.5 3.5 - 5.5 mmol/L LAB CHEMISTRY METHOD 12/24/2024 9:06 AM [facility] Chloride 107 96 - 110 mmol/L LAB CHEMISTRY METHOD 12/24/2024 9:06 AM [facility] CO2 26 21 - 32 mmol/L LAB CHEMISTRY METHOD 12/24/2024 9:06 AM [facility] Anion Gap 5 3 - 11 LAB CHEMISTRY METHOD 12/24/2024 9:06 AM [facility] Glucose 83 70 - 100 mg/dL LAB CHEMISTRY METHOD 12/24/2024 9:06 AM [facility] BUN 11 5 - 25 mg/dL LAB CHEMISTRY METHOD 12/24/2024 9:06 AM [facility] Creatinine 0.55 0.50 - 1.10 mg/dL LAB CHEMISTRY METHOD 12/24/2024 9:06 AM [facility] eGFR 96 >=60 mL/min/1. 73m2 LAB CHEMISTRY METHOD 12/24/2024 9:06 AM [facility] Comment:Calculation based on the Chronic Kidney Disease Epidemiology Collaboration (CKD-EPI) equation refit without adjustment for race. BUN/Creatinine Ratio 20.0 LAB CHEMISTRY METHOD 12/24/2024 9:06 AM [facility] Calcium 9.2 8.5 - 10.5 mg/dL LAB CHEMISTRY METHOD 12/24/2024 9:06 AM [facility] Blood Venous blood specimen / Unknown Venipuncture / Unknown 12/24/2024 7:11 AM EDT 12/24/2024 8:19 AM EDT us Denver Sondhi MD LAB BLOOD ORDERABLES Final Resu lt [facility] LAB [address] [place] [address], from Last 3 Months Insurance Care Teams Bus Escort Relationship Specialty Start Date End Date Denver Chaudhry MD [address] [place] [address] PCP - General Internal Medicine 12/15/24
--- OUTSIDE RECORDS SUMMARY | 2025-02-24 18:25 | XMS_ITS | Encounter Summary ---
Author Organization [employer] Address [address] [place] [address] Care Team Providers Care Biomedical Photographer Name Role Phone Denver Chaudhry MD Primary Care Provider [phone] Encounter Details Date Type Department Care Team (Late st Contact Info) Description 12/26/2024 Lab Requisition [facility] - Main Lab [address] [facility] [place] [address] Denver Chaudhry MD [address] [place] [phone] Unspecified atrial fibrillation (CMS/HCC V24, CMS/HCC [...] CBC auto differential (12/28/2024 5:45 AM EDT) [facility] WBC 8.5 4.8 - 10.8 K/mcL LAB HEMETOLOGY METHOD 12/28/2024 10:56 AM [facility] RBC 4.20 3.80 - 4.80 M/mcL LAB HEMETOLOGY METHOD 12/28/2024 10:56 AM [facility] Hemoglobin 13.2 11.5 - 16.0 g/dL LAB HEMETOLOGY METHOD 12/28/2024 10:56 AM [facility] Hematocrit 41.1 35.0 - 47.0 % LAB HEMETOLOGY METHOD 12/28/2024 10:56 AM [facility] MCV 97.4 79.0 - 98.0 FL LAB HEMETOLOGY METHOD 12/28/2024 10:56 AM [facility] MCH 31.3 27.0 - 32.0 pcg LAB HEMETOLOGY METHOD 12/28/2024 10:56 AM [facility] MCHC 32.1 32.0 - 37.0 g/dL LAB HEMETOLOGY METHOD 12/28/2024 10:56 AM [facility] RDW 15.3(H) 11.0 - 15.0 % LAB HEMETOLOGY METHOD 12/28/2024 10:56 AM [facility] Platelets 342 130 - 400 K/mcL LAB HEMETOLOGY METHOD 12/28/2024 10:56 AM [facility] MPV 9.8 7.0 - 11.0 FL LAB HEMETOLOGY METHOD 12/28/2024 10:56 AM [facility] NRBC 0.0 <1.0 % LAB HEMETOLOGY METHOD 12/28/2024 10:56 AM [facility] NRBC Absolute 0.00 <0.10 K/mcL LAB HEMETOLOGY METHOD 12/28/2024 10:56 AM [facility] Neutrophils Relative 60.2 % LAB HEMETOLOGY METHOD 12/28/2024 10:56 AM [facility] Lymphocytes Relative 29.0 % LAB HEMETOLOGY METHOD 12/28/2024 10:56 AM [facility] Monocytes Relative 7.1 % LAB HEMETOLOGY METHOD 12/28/2024 10:56 AM [facility] Eosinophils Relative 2.0 % LAB HEMETOLOGY METHOD 12/28/2024 10:56 AM [facility] Basophils Relative 0.8 % LAB HEMETOLOGY METHOD 12/28/2024 10:56 AM [facility] Immature Granulocytes Relative 0.9 % LAB HEMETOLOGY METHOD 12/28/2024 10:56 AM [facility] Neutrophils Absolute 5.13 1.50 - 7.00 K/mcL LAB HEMETOLOGY METHOD 12/28/2024 10:56 AM [facility] Lymphocytes Absolute 2.48 1.00 - 5.00 K/mcL LAB HEMETOLOGY METHOD 12/28/2024 10:56 AM [facility] Monocytes Absolute 0.61 0.20 - 1.00 K/mcL LAB HEMETOLOGY METHOD 12/28/2024 10:56 AM EDT [facility] Eosinophils Absolute 0.17 0.00 - 0.50 K/[facility] LAB HEMETOLOGY METHOD 12/28/2024 10:56 AM EDT [facility] Basophils Absolute 0.07 0.00 - 0.20 K/[facility] LAB HEMETOLOGY METHOD 12/28/2024 10:56 AM EDT [facility] Immature Granulocytes Absolute 0.08(H) 0.00 - 0.03 K/[facility] LAB HEMETOLOGY METHOD 12/28/2024 10:56 AM EDT [facility] Blood Venous blood specimen / Unknown Venipuncture / Unknown 12/28/2024 5:45 AM EDT 12/28/2024 10:09 AM EDT us Denver Chaudhry MD LAB BLOOD ORDERABLES Final Resu lt [facility] [address] [place] [address], [place] [phone] * (ABNORMAL) Comprehensive metabolic panel (12/28/2024 5:45 AM EDT) Sodium 137 133 - 145 mmol/L LAB CHEMISTRY METHOD 12/28/2024 11:15 AM [facility] Potassium 5.1 3.5 - 5.5 mmol/L LAB CHEMISTRY METHOD 12/28/2024 11:15 AM [facility] Chloride 104 96 - 110 mmol/L LAB CHEMISTRY METHOD 12/28/2024 11:15 AM [facility] CO2 27 21 - 32 mmol/L LAB CHEMISTRY METHOD 12/28/2024 11:15 AM [facility] Anion Gap 6 3 - 11 LAB CHEMISTRY METHOD 12/28/2024 11:15 AM [facility] Glucose 77 70 - 100 mg/dL LAB CHEMISTRY METHOD 12/28/2024 11:15 AM [facility] BUN 18 5 - 25 mg/dL LAB CHEMISTRY METHOD 12/28/2024 11:15 AM [facility] Creatinine 0.94 0.50 - 1.10 mg/dL LAB CHEMISTRY METHOD 12/28/2024 11:15 AM [facility] eGFR 63 >=60 mL/min/1. 73m2 LAB CHEMISTRY METHOD 12/28/2024 11:15 AM [facility] Comment:Calculation based on the Chronic Kidney Disease Epidemiology Collaboration (CKD-EPI) equation refit without adjustment for race. BUN/Creatinine Ratio 19.1 LAB CHEMISTRY METHOD 12/28/2024 11:15 AM [facility] Calcium 9.7 8.5 - 10.5 mg/dL LAB CHEMISTRY METHOD 12/28/2024 11:15 AM [facility] AST (SGOT) 60(H) 10 - 42 unit/L LAB CHEMISTRY METHOD 12/28/2024 11:15 AM [facility] ALT (SGPT) 53 10 - 60 unit/L LAB CHEMISTRY METHOD 12/28/2024 11:15 AM [facility] Alkaline Phosphatase 102 42 - 121 unit/L LAB CHEMISTRY METHOD 12/28/2024 11:15 AM [facility] Total Protein 6.8 6.0 - 8.0 g/dL LAB CHEMISTRY METHOD 12/28/2024 11:15 AM [facility] Albumin 3.2 3.2 - 5.0 g/dL LAB CHEMISTRY METHOD 12/28/2024 11:15 AM [facility] Total Bilirubin 0.4 0.0 - 1.4 mg/dL LAB CHEMISTRY METHOD 12/28/2024 11:15 AM [facility] Blood Venous blood specimen / Unknown Venipuncture / Unknown 12/28/2024 5:45 AM EDT 12/28/2024 10:09 AM EDT Denver Chaudhry MD LAB BLOOD ORDERABLES Final Resu lt Performing Organization Address City/[facility]/ZIP Co de Phone Number [facility] [address] [place] [address], [place] [phone] * (ABNORMAL) Prothrombin time with INR (12/28/2024 5:45 AM EDT) Protime 29.6(H) 10.6 - 13.9 sec LAB COAGULATION METHOD 12/28/2024 10:41 AM EDT [facility] INR 2.4 LAB COAGULATION METHOD 12/28/2024 10:41 AM EDT [facility] Blood Venous blood specimen / Unknown Venipuncture / Unknown 12/28/2024 5:45 AM EDT 12/28/2024 10:09 AM EDT Denver Chaudhry MD LAB BLOOD ORDERABLES Final Resu lt Performing Organization Address [facility]/ZIP Co de Phone Number [facility] [address] [place] [address], [place] [phone] documented in this encounter Visit Diagnoses Diagnosis Unspecified atrial fibrillation (CMS/HCC V24, CMS/HCC V28) Heart failure, unspecified (CMS/HCC V24, CMS/HCC V28) Heart failure, unspecified Essential (primary) hypertension Unspecified essential hypertension Hyperlipidemia, unspecified documented in this encounter Care Teams Biomedical Photographer Relationship Specialty Start Date End Date Denver Chaudhry MD [address] [place] [phone] PCP - General Internal Medicine 12/15/24 documented as of this encounter
--- OUTSIDE RECORDS SUMMARY | 2025-02-24 18:25 | XMS_ITS | Encounter Summary ---
Author Organization [employer] Address [address] [place] [address] Care Team Providers Care Public Transportation Inspector Name Role Phone Denver Chaudhry MD Primary Care Provider [phone] Encounter Details Date Type Department Care Team (Late st Contact Info) Description 12/22/2024 Lab Requisition [facility] - Main Lab [address] [facility] [place] [address] Denver Chaudhry MD [address] [place] [address] Unspecified atrial fibrillation (CMS/HCC V24, CMS/HCC [...] LAB COAGULATION METHOD 12/22/2024 11:46 AM EDT [facility] LAB INR 2.5 LAB COAGULATION METHOD 12/22/2024 11:46 AM EDT [facility] LAB Blood Venous blood specimen / Unknown Venipuncture / Unknown 12/22/2024 5:11 AM EDT 12/22/2024 10:45 AM EDT Denver Chaudhry MD LAB BLOOD ORDERABLES Final [facility]) [facility] LAB [address] [place] [address], documented in this encounter Visit Diagnoses Diagnosis Unspecified atrial fibrillation (CMS/HCC V24, CMS/HCC V28) documented in this encounter Care Teams Public Transportation Inspector Relationship Specialty Start Date End Date Denver Chaudhry MD [address] [place] [address] PCP - General Internal Medicine 12/15/24 documented as of this encounter
--- OUTSIDE RECORDS SUMMARY | 2025-02-24 18:25 | XMS_ITS | Encounter Summary ---
Author Organization [employer] Address [address] [place] [address] Care Team Providers Care Sash Maker Name Role Phone Denver Chaudhry MD Primary Care Provider [phone] Encounter Details Date Type Department Care Team (Late st Contact Info) Description 01/01/2025 Lab Requisition [facility] - Main Lab 299 [facility] [place] [address] Denver Chaudhry MD [address] [place] [phone] Unspecified atrial fibrillation (CMS/HCC V24, CMS/HCC [...] LAB COAGULATION METHOD 01/01/2025 10:31 AM EDT [facility] LAB INR 2.2 LAB COAGULATION METHOD 01/01/2025 10:31 AM T [facility] LAB Blood Venous blood specimen / Unknown Venipuncture / Unknown 01/01/2025 5:56 AM EDT 01/01/2025 10:07 AM EDT Denver Chaudhry MD LAB BLOOD ORDERABLES Final Resu lt [facility] ([facility]) [facility] LAB [address] [place] [address], documented in this encounter Visit Diagnoses Diagnosis Unspecified atrial fibrillation (CMS/HCC V24, CMS/HCC V28) documented in this encounter Care Teams Sash Maker Relationship Specialty Start Date End Date Denver Chaudhry MD [address] [place] [address] PCP - General Internal Medicine 12/15/24 documented as of this encounter
--- OUTSIDE RECORDS SUMMARY | 2025-02-24 18:25 | XMS_ITS | Encounter Summary ---
Author Organization [employer] Address [address] [place] [address] Care Team Providers Care Aquatic Performer Name Role Phone Denver Chaudhry MD Primary Care Provider Encounter Details Date Type Department Care Team (Late st Contact Info) Description 01/02/2025 Lab Requisition [facility] - Main Lab 299 [facility] [place] [address] Randall Ac MD [address] [place] [address] Unspecified atrial fibrillation (CMS/HCC V24, CMS/HCC V28) [...] V28) documented in this encounter Care Teams Aquatic Performer Relationship Specialty Start Date End Date Denver Chaudhry MD [address] [place] [address] PCP - General Internal Medicine 12/15/24 documented as of this encounter
--- OUTSIDE RECORDS SUMMARY | 2025-02-24 18:25 | XMS_ITS | Encounter Summary ---
Author Organization [employer] Address [address] [place] [address] Care Team Providers Care Director Trust Name Role Phone Denver Chaudhry MD Primary Care Provider [phone] Encounter Details Date Type Department Care Team (Late st Contact Info) Description 01/08/2025 Lab Requisition [facility] - Main Lab 299 [facility] [place] [address] Randall Ac MD [address] [place] [address] Unspecified atrial fibrillation (CMS/HCC V24, CMS/HCC V28); [...] unspecified documented in this encounter Care Teams Director Trust Relationship Specialty Start Date End Date Denver Chaudhry MD [address] [place] [address] PCP - General Internal Medicine 12/15/24 documented as of this encounter
--- OUTSIDE RECORDS SUMMARY | 2025-02-24 18:25 | XMS_ITS | Encounter Summary ---
Author Organization [employer] Address [address] [place] [address] Care Team Providers Care Silk Folder Name Role Phone Denver Chaudhry MD Primary Care Provider [phone] Encounter Details Date Type Department Care Team (Late st Contact Info) Description 12/23/2024 Lab Requisition [facility] - Main Lab 299 [facility] [place] [address] Denver Chaudhry MD [address] [place] [phone] Unspecified atrial fibrillation (CMS/HCC V24, CMS/HCC [...] CBC auto differential (12/24/2024 7:11 AM EDT) [facility] [address] WBC 9.0 4.8 - 10.8 K/mcL LAB HEMETOLOGY METHOD 12/24/2024 8:45 AM [facility] LAB RBC 4.20 3.80 - 4.80 M/mcL LAB HEM[facility]OLOG[facility] Hemoglobin 13.0 11.5 - 16.0 g/dL LAB HEMETOLOGY METHOD 12/24/2024 8:45 AM [facility] LAB Hematocrit 40.2 35.0 - 47.0 % LAB HEMETOLOGY METHOD 12/24/2024 8:45 AM [facility] LAB MCV 95.7 79.0 - 98.0 FL LAB HEMETOLOGY METHOD 12/24/2024 8:45 AM [facility] LAB MCH 31.0 27.0 - 32.0 pcg LAB HEMETOLOGY METHOD 12/24/2024 8:45 AM [facility] LAB MCHC 32.3 32.0 - 37.0 g/dL LAB HEMETOLOGY METHOD 12/24/2024 8:45 AM [facility] LAB RDW 14.9 11.0 - 15.0 % LAB HEMETOLOGY METHOD 12/24/2024 8:45 AM EDT [facility] LAB Platelets 351 130 - 400 K/mcL LAB HEMETOLOGY METHOD 12/24/2024 8:45 AM [facility] LAB MPV 9.6 7.0 - 11.0 FL LAB HEMETOLOGY METHOD 12/24/2024 8:45 AM [facility] LAB NRBC 0.0 <1.0 % LAB HEMETOLOGY METHOD 12/24/2024 8:45 AM [facility] LAB NRBC Absolute 0.00 <0.10 K/mcL LAB HEMETOLOGY METHOD 12/24/2024 8:45 AM [facility] LAB Neutrophils Relative 67.4 % LAB HEMETOLOGY METHOD 12/24/2024 8:45 AM [facility] LAB Lymphocytes Relative 22.8 % LAB HEMETOLOGY METHOD 12/24/2024 8:45 AM [facility] LAB Monocytes Relative 6.3 % LAB HEMETOLOGY METHOD 12/24/2024 8:45 AM [facility] LAB Eosinophils Relative 1.4 % LAB HEMETOLOGY METHOD 12/24/2024 8:45 AM [facility] LAB Basophils Relative 0.8 % LAB HEMETOLOGY METHOD 12/24/2024 8:45 AM [facility] LAB Immature Granulocytes Relative 1.3 % LAB HEMETOLOGY METHOD 12/24/2024 8:45 AM [facility] LAB Neutrophils Absolute 6.07 1.50 - 7.00 K/mcL LAB HEMETOLOGY METHOD 12/24/2024 8:45 AM [facility] LAB Lymphocytes Absolute 2.05 1.00 - 5.00 K/mcL LAB HEMETOLOGY METHOD 12/24/2024 8:45 AM [facility] LAB Monocytes Absolute 0.57 0.20 - 1.00 K/mcL LAB HEMETOLOGY METHOD 12/24/2024 8:45 AM EDT [facility] LAB Eosinophils Absolute 0.13 0.00 - 0.50 K/mcL LAB HEMETOLOGY METHOD 12/24/2024 8:45 AM EDT [facility] LAB Basophils Absolute 0.07 0.00 - 0.20 K/mcL LAB HEMETOLOGY METHOD 12/24/2024 8:45 AM EDT [facility] LAB Immature Granulocytes Absolute 0.12(H) 0.00 - 0.03 K/mcL LAB HEMETOLOGY METHOD 12/24/2024 8:45 AM EDT [facility] LAB Blood Venous blood specimen / Unknown Venipuncture / Unknown 12/24/2024 7:11 AM EDT 12/24/2024 8:19 AM EDT us Denver Chaudhry MD LAB BLOOD ORDERABLES Final Resu lt [facility] LAB [address] [place] [address], [place] [phone] * Basic metabolic panel (12/24/2024 7:11 AM EDT) Sodium 138 133 - 145 mmol/L LAB CHEMISTRY METHOD 12/24/2024 9:06 AM [facility] LAB Potassium 4.5 3.5 - 5.5 mmol/L LAB CHEMISTRY METHOD 12/24/2024 9:06 AM [facility] LAB Chloride 107 96 - 110 mmol/L LAB CHEMISTRY METHOD 12/24/2024 9:06 AM [facility] LAB CO2 26 21 - 32 mmol/L LAB CHEMISTRY METHOD 12/24/2024 9:06 AM [facility] LAB Anion Gap 5 3 - 11 LAB CHEMISTRY METHOD 12/24/2024 9:06 AM [facility] LAB Glucose 83 70 - 100 mg/dL LAB CHEMISTRY METHOD 12/24/2024 9:06 AM [facility] LAB BUN 11 5 - 25 mg/dL LAB CHEMISTRY METHOD 12/24/2024 9:06 AM EDT [facility] LAB Creatinine 0.55 0.50 - 1.10 mg/dL LAB CHEMISTRY METHOD 12/24/2024 9:06 AM EDT [facility] LAB eGFR 96 >=60 mL/min/1. 73m2 LAB CHEMISTRY METHOD 12/24/2024 9:06 AM EDT [facility] LAB Comment:Calculation based on the Chronic Kidney Disease Epidemiology Collaboration (CKD-EPI) equation refit without adjustment for race. BUN/Creatinine Ratio 20.0 LAB CHEMISTRY METHOD 12/24/2024 9:06 AM EDT [facility] LAB Calcium 9.2 8.5 - 10.5 mg/dL LAB CHEMISTRY METHOD 12/24/2024 9:06 AM EDT [facility] LAB Blood Venous blood specimen / Unknown Venipuncture / Unknown 12/24/2024 7:11 AM EDT 12/24/2024 8:19 AM EDT us Denver Chaudhry MD LAB BLOOD ORDERABLES Final Resu lt [facility] LAB [address] [place] [address], [place] [phone] * (ABNORMAL) Prothrombin time with INR (12/24/2024 7:11 AM EDT) Protime 24.1(H) 10.6 - 13.9 sec LAB COAGULATION METHOD 12/24/2024 8:55 AM EDT [facility] LAB INR 1.9 LAB COAGULATION METHOD 12/24/2024 8:55 AM EDT [facility] LAB Blood Venous blood specimen / Unknown Venipuncture / Unknown 12/24/2024 7:11 AM EDT 12/24/2024 8:19 AM EDT us Denver Chaudhry MD LAB BLOOD ORDERABLES Final Resu lt [facility] ([facility]) HOSPITAL LAB [address] [place] [address], documented in this encounter Visit Diagnoses Diagnosis Unspecified atrial fibrillation (CMS/HCC V24, CMS/HCC V28) Heart failure, unspecified (CMS/HCC V24, CMS/HCC V28) Heart failure, unspecified Essential (primary) hypertension Unspecified essential hypertension Hyperlipidemia, unspecified documented in this encounter Care Teams Silk Folder Relationship Specialty Start Date End Date Denver Chaudhry MD [address] [place] [address] PCP - General Internal Medicine 12/15/24 documented as of this encounter
--- OUTSIDE RECORDS SUMMARY | 2025-02-24 18:25 | XMS_ITS | Encounter Summary ---
Author Organization [employer] Address [address] [place] [address] Care Team Providers Care Servicer Travel Trailers Name Role Phone Denver Chaudhry MD Primary Care Provider [phone] Encounter Details Date Type Department Care Team (Late st Contact Info) Description 01/06/2025 Lab Requisition [facility] - Main Lab 299 [facility] [place] [address] Randall Ac MD [address] [place] [address] Unspecified atrial fibrillation (CMS/HCC V24, CMS/HCC V28) [...] time with INR (01/07/2025 6:25 AM EDT) Protime 18.9(H) 10.6 - 13.9 sec LAB COAGULATION METHOD 01/07/2025 8:54 AM EDT [facility] LAB INR 1.5 LAB COAGULATION METHOD 01/07/2025 8:54 AM EDT [facility] LAB Blood Venous blood specimen / Unknown Venipuncture / Unknown 01/07/2025 6:25 AM EDT 01/07/2025 8:05 AM EDT us Randall Ac MD LAB BLOOD ORDERABLES Final R esult [facility] ([facility]) [facility] LAB [address] [place] [address], documented in this encounter Visit Diagnoses Diagnosis Unspecified atrial fibrillation (CMS/HCC V24, CMS/HCC V28) documented in this encounter Care Teams Servicer Travel Trailers Relationship Specialty Start Date End Date Denver Chaudhry MD [address] [place] [address] PCP - General Internal Medicine 12/15/24 documented as of this encounter
--- OUTSIDE RECORDS SUMMARY | 2025-02-24 18:26 | XMS_ITS | Encounter Summary ---
Author Organization [employer] Address [address] [place] [address] Care Team Providers Care Miner Pick Name Role Phone Denver Chaudhry MD Primary Care Provider [phone] Encounter Details Date Type Department Care Team (Late st Contact Info) Description 12/18/2024 Lab Requisition [facility] - Main Lab 299 [facility] [place] [address] Denver Chaudhry MD [address] [place] [address] Unspecified atrial fibrillation (CMS/HCC V24, CMS/HCC [...] 12/21/2024 6:00 AM EDT Unspecified atrial fibrillation ([facility]/HCC V24, [facility]/HCC V28) Heart failure, unspecified (CMS/HCC V24, CMS/HCC V28) Hyperlipidemia, unspecified documented in this encounter Results * (ABNORMAL) CBC auto differential (12/21/2024 6:00 AM EDT) [facility] WBC 8.9 4.8 - 10.8 K/mcL LAB HEMETOLOGY METHOD 12/21/2024 11:18 AM [facility] LAB RBC 4.20 3.80 - 4.80 M/mcL LAB HEMETOLOGY METHOD 12/21/2024 11:18 AM [facility] LAB Hemoglobin 13.0 11.5 - 16.0 g/dL LAB HEMETOLOGY METHOD 12/21/2024 11:18 AM [facility] LAB Hematocrit 40.9 35.0 - 47.0 % LAB HEMETOLOGY METHOD 12/21/2024 11:18 AM [facility] LAB MCV 96.7 79.0 - 98.0 FL LAB HEMETOLOGY METHOD 12/21/2024 11:18 AM [facility] LAB MCH 30.7 27.0 - 32.0 pcg LAB HEMETOLOGY METHOD 12/21/2024 11:18 AM [facility] LAB MCHC 31.8(L) 32.0 - 37.0 g/dL LAB HEMETOLOGY METHOD 12/21/2024 11:18 AM [facility] LAB RDW 14.8 11.0 - 15.0 % LAB HEMETOLOGY METHOD 12/21/2024 11:18 AM [facility] LAB Platelets 354 130 - 400 K/mcL LAB HEMETOLOGY METHOD 12/21/2024 11:18 AM [facility] LAB MPV 9.9 7.0 - 11.0 FL LAB HEMETOLOGY METHOD 12/21/2024 11:18 AM [facility] LAB NRBC 0.0 <1.0 % LAB HEMETOLOGY METHOD 12/21/2024 11:18 AM [facility] LAB NRBC Absolute 0.00 <0.10 K/[facility] LAB HEMETOLOGY METHOD 12/21/2024 11:18 AM [facility] LAB Neutrophils Relative 61.1 % LAB HEMETOLOGY METHOD 12/21/2024 11:18 AM [facility] LAB Lymphocytes Relative 29.3 % LAB HEMETOLOGY METHOD 12/21/2024 11:18 AM [facility] LAB Monocytes Relative 6.2 % LAB HEMETOLOGY METHOD 12/21/2024 11:18 AM [facility] LAB Eosinophils Relative 1.5 % LAB HEMETOLOGY METHOD 12/21/2024 11:18 AM [facility] LAB Basophils Relative 0.8 % LAB HEMETOLOGY METHOD 12/21/2024 11:18 AM [facility] LAB Immature Granulocytes Relative 1.1 % LAB HEMETOLOGY METHOD 12/21/2024 11:18 AM [facility] LAB Neutrophils Absolute 5.42 1.50 - 7.00 K/mcL LAB HEMETOLOGY METHOD 12/21/2024 11:18 AM [facility] LAB Lymphocytes Absolute 2.60 1.00 - 5.00 K/mcL LAB HEMETOLOGY METHOD 12/21/2024 11:18 AM [facility] LAB Monocytes Absolute 0.55 0.20 - 1.00 K/mcL LAB HEMETOLOGY METHOD 12/21/2024 11:18 AM [facility] LAB Eosinophils Absolute 0.13 0.00 - 0.50 K/mcL LAB HEMETOLOGY METHOD 12/21/2024 11:18 AM EDT [facility] LAB Basophils Absolute 0.07 0.00 - 0.20 K/[facility] LAB HEMETOLOGY METHOD 12/21/2024 11:18 AM EDT [facility] LAB Immature Granulocytes Absolute 0.10(H) 0.00 - 0.03 K/[facility] LAB HEMETOLOGY METHOD 12/21/2024 11:18 AM EDT [facility] LAB Blood Venous blood specimen / Unknown Venipuncture / Unknown 12/21/2024 6:00 AM EDT 12/21/2024 10:41 AM EDT Denevr Chaudhry MD LAB BLOOD ORDERABLES Final Resu lt [facility] LAB [address] [place] [address], * (ABNORMAL) Comprehensive metabolic panel (12/21/2024 6:00 AM EDT) Sodium 139 133 - 145 mmol/L LAB CHEMISTRY METHOD 12/21/2024 11:59 AM [facility] LAB Potassium 4.3 3.5 - 5.5 mmol/L LAB CHEMISTRY METHOD 12/21/2024 11:59 AM [facility] LAB Chloride 104 96 - 110 mmol/L LAB CHEMISTRY METHOD 12/21/2024 11:59 AM [facility] LAB CO2 26 21 - 32 mmol/L LAB CHEMISTRY METHOD 12/21/2024 11:59 AM [facility] LAB Anion Gap 9 3 - 11 LAB CHEMISTRY METHOD 12/21/2024 11:59 AM [facility] LAB Glucose 69(L) 70 - 100 mg/dL LAB CHEMISTRY METHOD 12/21/2024 11:59 AM [facility] LAB BUN 12 5 - 25 mg/dL LAB CHEMISTRY METHOD 12/21/2024 11:59 AM [facility] LAB Creatinine 0.56 0.50 - 1.10 mg/dL LAB CHEMISTRY METHOD 12/21/2024 11:59 AM [facility] LAB eGFR 95 >=60 mL/min/1. 73m2 LAB CHEMISTRY METHOD 12/21/2024 11:59 AM [facility] LAB Comment:Calculation based on the Chronic Kidney Disease Epidemiology Collaboration (CKD-EPI) equation refit without adjustment for race. BUN/Creatinine Ratio 21.4 LAB CHEMISTRY METHOD 12/21/2024 11:59 AM [facility] LAB Calcium 9.1 8.5 - 10.5 mg/dL LAB CHEMISTRY METHOD 12/21/2024 11:59 AM [facility] LAB AST (SGOT) 75(H) 10 - 42 unit/L LAB CHEMISTRY METHOD 12/21/2024 11:59 AM [facility] LAB ALT (SGPT) 68(H) 10 - 60 unit/L LAB CHEMISTRY METHOD 12/21/2024 11:59 AM [facility] LAB Alkaline Phosphatase 109 42 - 121 unit/L LAB CHEMISTRY METHOD 12/21/2024 11:59 AM [facility] LAB Total Protein 6.6 6.0 - 8.0 g/dL LAB CHEMISTRY METHOD 12/21/2024 11:59 AM [facility] LAB Albumin 2.8(L) 3.2 - 5.0 g/dL LAB CHEMISTRY METHOD 12/21/2024 11:59 AM [facility] LAB Total Bilirubin 0.4 0.0 - 1.4 mg/dL LAB CHEMISTRY METHOD 12/21/2024 11:59 AM [facility] LAB Blood Venous blood specimen / Unknown Venipuncture / Unknown 12/21/2024 6:00 AM EDT 12/21/2024 10:41 AM EDT Denver Chaudhry MD LAB BLOOD ORDERABLES Final Resu lt Performing Organization Address [facility] Co de Phone Number [facility] LAB [address] [place] [address], [place] [phone] * (ABNORMAL) Prothrombin time with INR (12/21/2024 6:00 AM EDT) Protime 68.4(H) 10.6 - 13.9 sec LAB COAGULATION METHOD 12/21/2024 11:32 AM EDT [facility] LAB INR 5.6(HH) LAB COAGULATION METHOD 12/21/2024 11:32 AM EDT [facility] LAB Blood Venous blood specimen / Unknown Venipuncture / Unknown 12/21/2024 6:00 AM EDT 12/21/2024 10:41 AM EDT Denver Chaudhry MD LAB BLOOD ORDERABLES Final Resu lt Performing Organization Address [facility] Co de Phone Number [facility] [address] [place] [address], [place] [phone] documented in this encounter Visit Diagnoses Diagnosis Unspecified atrial fibrillation (CMS/HCC V24, CMS/HCC V28) Heart failure, unspecified (CMS/HCC V24, CMS/HCC V28) Heart failure, unspecified Hyperlipidemia, unspecified documented in this encounter Care Teams Miner Pick Relationship Specialty Start Date End Date Denver Chaudhry MD [address] [place] [address] PCP - General Internal Medicine 12/15/24 documented as of this encounter
--- OUTSIDE RECORDS SUMMARY | 2025-02-24 18:26 | XMS_ITS | Encounter Summary ---
Author Organization [employer] Address [address] [place] [address] Care Team Providers Care Dining Car Hop Name Role Phone Denver Chaudhry MD Primary Care Provider [phone] Encounter Details Date Type Department Care Team (Late st Contact Info) Description 12/17/2024 Lab Requisition [facility] - Main Lab [address] [facility] [place] [address] Denver Chaudhry MD [address] [place] [address] Unspecified atrial fibrillation (CMS/HCC V24, [...] V28) documented in this encounter Care Teams Dining Car Hop Relationship Specialty Start Date End Date Denver Chaudhry MD [address] [place] [address] PCP - General Internal Medicine 12/15/24 documented as of this encounter
== END 2025-02-24 14:56 | disposition home or self-care (01) ==
LOC: HO.HOS 13:53
PROVIDERS: PCP Internal Medicine; Visit Provider Orthopaedic Surgery
DX: S52.501A Unspecified fracture of the lower end of right radius, initial encounter for closed fracture (principal); S52.611A Displaced fracture of right ulna styloid process, initial encounter for closed fracture; I48.11 Longstanding persistent atrial fibrillation; Z79.01 Long term (current) use of anticoagulants
CPT/HCPCS: 99024

== ENCOUNTER → 2025-02-24 14:11 | Outpatient (BNV) | payer MEDICARE, SELFPAY | PROVIDERS: Visit Provider Radiology Diagnostic Radiology | DX: S52.501D Unspecified fracture of the lower end of right radius, subsequent encounter for closed fracture with routine healing (principal); S52.614K Nondisplaced fracture of right ulna styloid process, subsequent encounter for closed fracture with nonunion | CPT/HCPCS: 73110 ==